=== PATIENT | male | born 1965 | race Caucasian/White ===

== ENCOUNTER → 2016-10-28 | Outpatient (CLI) | payer BC ==
--- NOTE | 2016-10-28 18:31 | US ---
EXAMINATION TYPE: US extremity nonvasc mass LT DATE OF EXAM: 10/28/2016 6:09 PM COMPARISON: NONE CLINICAL HISTORY: L Bicep Nodule R22.32. patient has lump posterior left upper arm, states it has vinnie e down in size since originally identified.Patient has a history of repair of tricep and bicep becaus e of a cutting injury. 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 There is an oval soft tissue density that has the appearance of a lymph node measuring 2.1 x 0 .5 x 2.1 cm with some internal flow. This sits anterior to muscle, just under skin surface. IMPRESSION: There is an oval shaped subcutaneous solid mass in the area of concern. The sonographic features are benign in this could be lipoma or unusual location of a lymph node.
== END | disposition home or self-care (01) ==
LOC: RADUSMAIN 17:46
PROVIDERS: ATTEND Family Medicine
DX: R22.32 Localized swelling, mass and lump, left upper limb (principal)

== ENCOUNTER 2018-01-17 17:59 | Inpatient (IN) | payer BC ==
[2018-01-17] MEDS ORDERED: ROCURONIUM BROMIDE 10 MG/ML 10 ML VIAL IV ONE (18:08)
[2018-01-17] MEDS ORDERED: MIDAZOLAM 2 MG/2 ML VIAL ONE ×2 (18:10→19:31)
[2018-01-17] MEDS ORDERED: MIDAZOLAM 2 MG/2 ML VIAL IV ONE ×2 (18:10→19:41)
[2018-01-17] MEDS ORDERED: fentaNYL (PF) 50 MCG/ML 2 ML AMP ONE (18:10)
[2018-01-17] MEDS ORDERED: fentaNYL (PF) 50 MCG/ML 2 ML AMP IV ONE (18:12)
[2018-01-17] MEDS ORDERED: LIDOCAINE 2% INJ 20 MG/ML SQ ONE (18:23)
[2018-01-17] MEDS ORDERED: BIVALIRUDIN BOLUS 250 MG/50 ML IV ONE (18:33)
[2018-01-17] MEDS ORDERED: BIVALIRUDIN 250 MG in SODIUM CHLORIDE 0.9% 50 ML IV ONE ×2 (18:34→19:16)
[2018-01-17] MEDS ORDERED: DOPamine DRIP 800 MG in DEXTROSE/WATER 1 500ML.BAG IV ONE (18:36)
[2018-01-17] MEDS: NITROGLYCERIN 1000MCG/10ML SYRINGE INTRACORON ONE ×2 (18:38→19:00)
[2018-01-17] MEDS ORDERED: TICAGRELOR 90 MG TAB ONE (18:45)
[2018-01-17] MEDS ORDERED: IOPAMIDOL-370 125ML BTL INJ ONE (19:01)
[2018-01-17] MEDS ORDERED: NOREPINEPHRIN 4 MG-0.9% NS PMX 4 MG/250 ML ML IV ONE (19:06)
[2018-01-17] MEDS ORDERED: NITROGLYCERIN SL TABS 0.4 MG TAB SUBLINGUAL PRN (19:22)
[2018-01-17] MEDS ORDERED: MAG HYDROX/AL HYDROX/SIMETH 30 ML CUP PO PRN (19:22)
[2018-01-17] MEDS ORDERED: RX INFO: IV CONTRAST WAS GIVEN 1 EACH MISC MISCELLANE PRN (19:22)
[2018-01-17] MEDS ORDERED: ZOLPIDEM 5 MG TAB PO PRN (19:22)
[2018-01-17] MEDS ORDERED: ATROPINE SULFATE 0.1 MG/ML 10ML SYRINGE IV PRN (19:22)
--- NOTE | 2018-01-17 19:24 | ED ---
Chest Pain HPI - History of Present Illness Initial Comments: 52 years old male was faster from [facility] today with a STEMI with a third-degree AV block and hypertension, ER physician and informed me that he had a massive STEMI in the third-degree heart block and same time he had a respiratory failure he was intubated and on a pressor support because he dropped his blood pressure. Because of the STEMI and third-degree block he was being paced subcutaneously [facility] ER doc was trying to get hold of cardiology. I did speak with the Dr. Manny Bryant agreed that the once Travel [facility] extremity he could patient couldn't come to the Travel Writer without stopping in the ER. On arrival to the ER patient's blood pressure was stable he was intubated him and he went straight to the Travel Writer. Prior to his arrival I was notified by Travel Writer the Travel Writer extremity for him - Related Data Allergies Allergy/AdvReac Type Severity Reaction Status Date / Time No Known Allergies Allergy Verified 01/17/18 18:40 Review of Systems ROS Statement: Those systems with pertinent positive or pertinent negative responses have been documented in the HPI. ROS Other: All systems not noted in ROS Statement are negative. General Exam - General Exam Comments Initial Comments: No exam was done in the ER Disposition Clinical Impression: STEMI (ST elevation myocardial infarction) Disposition: ADMITTED IP TO THIS HOSP Condition: Poor
[2018-01-17] MEDS ORDERED: MORPHINE SULFATE 4 MG/ML SYRINGE IV PRN (19:25)
[2018-01-17] MEDS ORDERED: NALOXONE 0.4 MG/ML 1 ML VIAL IV PRN ×2 (19:25→23:03)
--- NOTE | 2018-01-17 19:32 | P.CRDCN ---
History of Present Illness Consult date: 01/17/18 Chief complaint: chest discomfort History of present illness: this is a 52-year-old gentleman who was transferred from the emergency room at [facility] to the emergency room here at [facility] after he was diagnosed with acute inferior ST patient myocardial infarction complicated by third-degree AV block and cardiogenic shock. The patient currently is intubated and he is on ventilator and the history was taken from the chart associated with the patient. The patient was at work earlier today where he started experiencing chest discomfort so he left work and drove himself to [facility] where he was in the parking lot when he collapsed and it brought to the attention of the security. EMS was called and the patient was hypotensive and he was brought to the emergency room where he was found to be in acute inferior ST elevation myocardial infarction as well as third-degree AV block. Subsequently the patient was transferred and underwent an emergent heart catheterization and was found to have an occluded large and dominant left circumflex where it was opened and stented with a good angiographic results and without any complication. I did perform an aspiration thrombectomy and I was able to extract large thrombus burden from the left circumflex coronary artery. The RCA is a small and nondominant and the LAD has mild disease only in the proximal portion. LV gram was performed and revealed impaired LV function with an ejection fraction of 35-40% with mid inferior and basal inferior hypokinesia. Currently the patient is in normal sinus mechanism and he's out of the third degree AV block after the angioplasty was performed. He is hypotensive and requiring vasopressor with Levophed. He is going to be admitted to the intensive. Heart. An echocardiogram will be performed. I would start the patient on dual antiplatelet and statin and hold on any beta danyell or ANANDA inhibitor in view of the low blood pressure requiring vasopressors. Past Medical History Past Medical History: No Reported History (underwent stenting of the left circumflex), Hypertension (bloc) Medications and Allergies Allergies Allergy/AdvReac Type Severity Reaction Status Date / Time No Known Allergies Allergy Verified 01/17/18 18:40 Physical Exam Vitals: Intake and Output 01/17/18 01/17/18 01/17/18 06:59 14:59 22:59 Intake Total 9.13 Balance 9.13 Intake: IV 9.13 Other: Weight 108 kg - Constitutional General appearance: no acute distress - Respiratory Respiratory: bilateral: CTA - Cardiovascular Rhythm: regular Heart sounds: normal: S1, S2 Results Current Medications Generic Name Dose Route Start Last Admin Trade Name Freq PRN Reason Stop Dose Admin Al Hydroxide/Mg Hydroxide 30 ml 01/17/18 19:22 Maalox PO Q4HR PRN Heartburn Aspirin 81 mg 01/18/18 09:00 Aspirin PO DAILY JACQUI Atorvastatin Calcium 80 mg 01/17/18 21:00 Lipitor PO HS [facility] Atropine Sulfate 0.5 mg 01/17/18 19:22 Atropine IV ONCE PRN Symptomatic Bradycardia Sodium Chloride 1,000 mls @ 100 mls/hr 01/17/18 19:30 Saline 0.9% IV 01/18/18 03:31 .Q10H [facility] Miscellaneous Information 1 each 01/17/18 19:22 Rx Info: Iv Contrast Was Given MISCELLANE 01/19/18 19:22 DAILY PRN Per Protocol Nitroglycerin 0.4 mg 01/17/18 19:22 Nitrostat SUBLINGUAL Q5M PRN Chest Pain Ticagrelor 90 mg 01/17/18 21:00 Brilinta PO BID [facility] Zolpidem Tartrate 5 mg 01/17/18 19:22 Ambien PO HS PRN Insomnia Intake and Output 01/17/18 01/17/18 01/17/18 06:59 14:59 22:59 Intake Total 9.13 Balance 9.13 Intake: IV 9.13 Other: Weight 108 kg Patient Weight 01/18/18 06:59 Weight 108 kg Assessment and Plan Assessment: assessment #[address] elevation myocardial infarction. #2 cardiogenic shock #3 advanced AV block Plan #1 dual antiplatelet therapy along with a statin #2 hold on any beta danyell or ANANDA inhibitor in view of the low blood pressure #3 continue vasopressor support #4 an echocardiogram was Doppler #5 follow-up with the patient. Thank you for allowing us but spitting his care and we'll continue following up with him
[2018-01-17] MEDS ORDERED: IOPAMIDOL-370 100ML BTL INJ ONE (19:45)
[2018-01-17] MEDS ORDERED: TICAGRELOR 90 MG TAB OG-TUBE ONE (19:45)
[2018-01-17] MEDS ORDERED: PROPOFOL 100 ML IV ONE (20:23)
[2018-01-17] MEDS: SODIUM CHLORIDE 0.9% 1,000 ML IV SCH (20:41)
[2018-01-17 20:58] LABS: ABG Base Excess -7.9 mmol/L; ABG HCO3 18 mmol/L (21-25); ABG Oxygen Saturation 99.7 % (94-97); ABG PCO2 33 mmHg (35-45); ABG PH 7.34 (7.35-7.45); ABG PO2 329 mmHg (83-108); ABG TCO2 19 mmol/L (19-24)
--- NOTE | 2018-01-17 21:47 | CC ---
CARDIAC CATHETERIZATION REPORT DATE OF SERVICE: January 17, 2018 PERFORMING PHYSICIAN: Devin Bryant MD, escrow clerk. PROCEDURE PERFORMED: 1. Selective right and left coronary angiogram. 2. Left heart catheterization. 3. Left ventriculography. 4. Successful stenting of the mid left circumflex using 3.5 x 18 mm Xience MORIAH with good angiographic results with adjunctive use of the Godzilla device. 5. An aspiration thrombectomy from the left circumflex. INDICATION: This is a pleasant 52-year-old gentleman who presented had collapsed at the parking lot at [facility] and he was brought to the emergency room and was found to be in acute inferior ST-elevation myocardial infarction complicated by cardiogenic shock. He was also found to be in third-degree AV block. He was brought to the emergency room at [facility] for an emergent heart catheterization. APPROACH: Right common femoral artery. COMPLICATION: None. LEVEL OF SEDATION: Moderate with sedation length of 50 minutes. PROCEDURE DESCRIPTION: After obtaining an informed consent, the patient was brought to the cardiac laborer car barn. The right common femoral artery was cannulated using micropuncture technique and a micropuncture wire passed easily, then I placed a 6-Hong Konger sheath in the right common femoral artery. Subsequently I did selective right and left coronary angiogram using Pratik Looney 5-Hong Konger for the right coronary artery and JL4 for the left coronary system. After that I did angioplasty on the left circumflex please see a separate paragraph for that. After that I did left heart catheterization and LV gram using 6- Hong Konger pigtail catheter. The procedure was completed without any complication. SELECTIVE CORONARY ANGIOGRAM: 1. The left main is a large caliber vessel and it is angiographically normal. It bifurcates into left circumflex and left anterior descending artery. 2. The left circumflex is a large caliber vessel and it is a dominant vessel. The left circumflex is acutely occluded in the midportion. It is calcified at that segment as well. 3. The LAD: The proximal LAD has mild disease only in the range of 30% to 40%. The mid LAD appeared to be angiographically normal and gives rise into 2 diagonal branches both are angiographically normal. The LAD distally appeared to be angiographically normal. HEMODYNAMICS: The left ventricular end-diastolic pressure was 15 mmHg and no gradient was identified across the aortic valve. Left ventriculography was performed in the CERON projection and using a power injection. The left ventricular systolic function is impaired with EF about 40% with mid inferior and basal inferior hypokinesia. PCI OF THE LEFT CIRCUMFLEX: Anticoagulation was initiated using Angiomax. Subsequently I took JL4 guide and the left main was engaged. A Whisper wire was used to wire the the left circumflex coronary artery and cross the acute total occlusion in the midportion. Subsequently I did aspiration thrombectomy using an export catheter and I was able to extract significant amount of plaque from the left circumflex. After that I did balloon angioplasty using 3.5 mm balloon which was inflated under 14 atmospheres for 20 seconds. I tried to advance 3.5 x 18 mm stent over the wire but the stent will not cross. In spite of using double wire with a pablo wire which was a run-through wire in addition to the whisper wire. After that I was able to advance the stent. After that I pulled run-through wire out and I was able to use the Godzilla and I was able to position the stent in the mid left circumflex where the stent was positioned under fluoroscopy guidance and deployed under its nominal pressure. The following angiogram showed good angiographic results. There was a lesion in the proximal left circumflex appeared to be intermediate and in the range of 50%. The procedure was completed without any complication. CONCLUSION: 1. Acute inferior ST-elevation myocardial infarction complicated by cardiogenic shock and third-degree AV block. 2. Acute total occlusion of the mid left circumflex, which was stented. The proximal left circumflex has intermediate lesion, appeared to be in the range of 50%, was left alone. 3. Small to medium nondominant right coronary artery. 4. Mild disease involving the proximal LAD. 5. Impaired LV function with an ejection fraction of 35-40% with mid inferior and basal inferior hypokinesia. POSTPROCEDURE MANAGEMENT: 1. Dual anti-platelet therapy. 2. Risk factors modifications. 3. Follow up with the patient. MMODL / IJN: [id number] /
[2018-01-17] MEDS: ATORVASTATIN 80 MG TAB PO SCH (21:57)
[2018-01-17] MEDS: TICAGRELOR 90 MG TAB PO SCH (21:57)
--- NOTE | 2018-01-17 23:03 | P.HPIM ---
History of Present Illness H&P Date: 01/17/18 [id number] male with no significant past medical history admitted to the hospital for cardiogenic shock the patient denied to give any history at this time patient is intubated and on pressors underwent cardiac cath and stent History has been taking from the family the patient accordingly most did have some chest discomfort and drove himself to the hospital the patient did have a syncopal episode patient was hypertensive and was found to have a STEMI and underwent stenting Currently patient is in the intensive care unit intubated review of systems unable to get to the current condition of the patient Past medical history none as per family Social history smoker Surgical history none known at this time Family history also unable to get Constitutional: No acute distress, conversant, pleasant Eyes: Anicteric sclerae, moist conjunctiva, no lid-lag PERRLA ENMT: NC/AT Oropharynx clear, no erythema, exudates Neck: Supple, FROM, no masses, or JVD No carotid bruits No thyromegaly Lungs: Clear to auscultation Clear to percussion Normal respiratory effort, no accessory muscle use Cardiovascular: Heart regular in rate and rhythm, No murmurs, gallops, or rubs No peripheral edema Abdominal: Soft Nontender, no guarding, rebound or rigidity Abdomen moving with respiration Skin: Normal temperature, tone, texture, turgor No induration No subcutaneous nodules No rash, lesions No ulcers Extremities: No digital cyanosis No clubbing Pedal pulses intact and symmetrical Radial pulses intact and symmetrical Normal gait and station No calf tenderness Psychiatric: Sedated Neuro: Rolanda is intubated and sedated Vital Signs Pulse Resp BP Pulse Ox 104 H 28 H 157/96 97 01/17/18 20:15 01/17/18 20:15 01/17/18 20:15 01/17/18 20:15 Laboratory Results - last 24 hr 01/17/18 20:53 Sample Site A line ABG pH 7.34 L ABG pCO2 33 L ABG pO2 329 H ABG HCO3 18 L ABG Total CO2 19 ABG O2 Saturation 99.7 H ABG Base Excess -7.9 Fazal Test No FiO2 100 Laboratory Results - last 24 hr 01/17/18 20:53 Sample Site A line ABG pH 7.34 L ABG pCO2 33 L ABG pO2 329 H ABG HCO3 18 L ABG Total CO2 19 ABG O2 Saturation 99.7 H ABG Base Excess -7.9 Fazal Test No FiO2 100 Assessment and plan cardiogenic shock and STEMI status post cardiac cath and stenting continue to monitor the patient in the intensive care unit currently patient is intubated and on vent AV block due to current cardiogenic shock and STEMI Continue management as better ICU team and cardiology Will repeat labs in a.m. Family at bedside Past Medical History Past Medical History: No Reported History (underwent stenting of the left circumflex), Hypertension (bloc) Additional Past Medical History / Comment(s): Ablation History of Any Multi-Drug Resistant Organisms: None Reported Past Surgical History: Ablation, Back Surgery Past Anesthesia/Blood Transfusion Reactions: No Reported Reaction Past Psychological History: No Psychological Hx Reported Smoking Status: Current every day smoker Past Alcohol Use History: Daily Additional Past Alcohol Use History / Comment(s): 4 beers daily Past Drug Use History: None Reported - Past Family History Brother(s) Family Medical History: Myocardial Infarction ([place]) Additional Family Medical History / Comment(s): in his 40s Mother Family Medical History: Coronary Artery Disease (CAD) Medications and Allergies Home Medications Medication Instructions Recorded Confirmed Type No Known Home Medications [No 01/17/18 01/17/18 History Known Home Medications] Allergies Allergy/AdvReac Type Severity Reaction Status Date / Time No Known Allergies Allergy Verified 01/17/18 18:40 Physical Exam Vitals: Vital Signs Temp Pulse Resp BP Pulse Ox 01/17/18 22:00 81 24 99 01/17/18 21:45 83 24 96 01/17/18 21:30 80 24 100 01/17/18 21:15 81 24 100 01/17/18 21:00 85 24 100 01/17/18 20:45 90 24 100 01/17/18 20:30 96.8 F L 95 24 100 01/17/18 20:15 104 H 28 H 157/96 97 Intake and Output 01/17/18 01/17/18 01/17/18 06:59 14:59 22:59 Intake Total 415.13 Output Total 1000 Balance -584.87 Intake: IV 385.13 Sodium Chloride 0.9% 1, 300 000 ml @ 100 mls/hr IV . Q10H JACQUI Rx#:[id number] Other 30 Output: Urine 1000 Other: Weight 106.9 kg ABP, PAP, CO, CI - Last 8 Hours Arterial Blood Pressure 96/57 Arterial Blood Pressure 96/57 Arterial Blood Pressure 102/61 Arterial Blood Pressure 99/61 Arterial Blood Pressure 96/63 Arterial Blood Pressure 87/56 Arterial Blood Pressure 95/63 Results Labs: Abnormal Lab Results - Last 24 Hours (Table) 01/17/18 Range/Units 20:53 ABG pH 7.34 L (7.35-7.45) ABG pCO2 33 L (35-45) mmHg ABG pO2 329 H (83-108) mmHg ABG HCO3 18 L (21-25) mmol/L ABG O2 Saturation 99.7 H (94-97) % Thrombosis Risk Factor Assmnt - Choose All That Apply Any of the Below Risk Factors Present?: Yes Each Factor Represents 1 point: Acute [place], Age 41-60 years, Obesity (BMI >25) Other congenital or acquired thrombophilia - If yes, enter type in comment: No Thrombosis Risk Factor Assessment Total Risk Factor Score: 3 Thrombosis Risk Factor Assessment Level: Moderate Risk
[2018-01-17] MEDS: NICOTINE 21MG/24HR PATCH TRANSDERM SCH (23:38)
[2018-01-18 00:17] LABS: Appearance,Urine Clear (Clear); Bacteria,Urine Rare /hpf; Bilirubin,Urine Negative (Negative); Blood,Urine Large (Negative); Color,Urine Yellow; Glucose,Urine (UA) Negative (Negative); Ketones,Urine Negative (Negative); Leukocyte Esterase,Urine Trace (Negative); Mucus,Urine Rare /hpf; Nitrite,Urine Negative (Negative); Protein,Urine 1+ (Negative); RBC,Urine >182 /hpf (0-5); Squamous Epithelial Cell,Urine <1 /hpf (0-4); Urobilinogen,Urine <2.0 mg/dL (<2.0); WBC,Urine 30 /hpf (0-5)
[2018-01-18 00:24] LABS: Specific Gravity,Urine >1.050 (1.001-1.035)
[2018-01-18] MEDS: SODIUM CHLORIDE 0.9% 1,000 ML IV SCH (00:25)
[2018-01-18] MEDS ORDERED: NOREPINEPHRIN 4 MG-0.9% NS PMX 4 MG/250 ML ML IV SCH (00:30)
[2018-01-18] MEDS ORDERED: PROPOFOL 1,000 MG in EMPTY BAG 1 BAG IV SCH (00:30)
[2018-01-18 01:24] LABS: ABG Base Excess -6.7 mmol/L; ABG HCO3 18 mmol/L (21-25); ABG Oxygen Saturation 95.5 % (94-97); ABG PCO2 30 mmHg (35-45); ABG PO2 76 mmHg (83-108); ABG TCO2 19 mmol/L (19-24)
[2018-01-18 05:26] LABS: Basophils % (A) 0 %; Eosinophils # (A) 0.1 k/uL (0-0.7); Eosinophils % (A) 1 %; HCT 44.3 % (39.0-53.0); HGB 14.3 gm/dL (13.0-17.5); Lymphocytes # (A) 1.5 k/uL (1.0-4.8); Lymphocytes % (A) 9 %; MCH 31.3 pg (25.0-35.0); MCHC 32.3 g/dL (31.0-37.0); MCV 96.7 fL (80.0-100.0); Mean Platelet Volume 7.6; Monocytes # (A) 0.6 k/uL (0-1.0); Monocytes % (A) 3 %; Neutrophils % (A) 86 %; Platelet Count 243 k/uL (150-450); RBC 4.58 m/uL (4.30-5.90); RDW 13.5 % (11.5-15.5); WBC 16.2 k/uL (3.8-10.6)
[2018-01-18 05:49] LABS: Anion Gap 10 mmol/L; Blood Urea Nitrogen 20 mg/dL (9-20); Calcium 8.6 mg/dL (8.4-10.2); Carbon Dioxide 18 mmol/L (22-30); Chloride 111 mmol/L (98-107); Glucose 116 mg/dL (74-99); Magnesium 1.9 mg/dL (1.6-2.3); Phosphorus 3.1 mg/dL (2.5-4.5); Potassium 4.3 mmol/L (3.5-5.1); Sodium 139 mmol/L (137-145)
[2018-01-18] MEDS: NICOTINE 21MG/24HR PATCH TRANSDERM SCH (07:12)
[2018-01-18] MEDS: MAGNESIUM SULFATE-D5W PMX 1 GM in DEXTROSE/WATER 1 100ML.BAG IVPB SCH ×2 (08:10→09:33)
--- NOTE | 2018-01-18 08:35 | XR ---
EXAMINATION TYPE: XR chest 1V DATE OF EXAM: 01/18/2018 COMPARISON: NONE HISTORY: Post extubation TECHNIQUE: Single frontal view of the chest is obtained. FINDINGS: Bilateral patchy perihilar infiltrates with interstitial pattern. Biapical pleural thicken ing. Arthropathy shoulders. No sizable pleural effusion or pneumothorax. IMPRESSION: Patchy perihilar infiltrate with interstitial pattern which could been the basis of chronometer assembler and adjuster evelin interstitial lung disease or acute pneumonitis. Mild venous congestion not excluded.
[2018-01-18] MEDS: PANTOPRAZOLE 40 MG/10 ML VIAL IV SCH (09:33)
[2018-01-18] MEDS: TICAGRELOR 90 MG TAB PO SCH ×2 (09:33→22:36)
[2018-01-18] MEDS: ASPIRIN 81 MG PO SCH (09:34)
--- NOTE | 2018-01-18 10:23 | ECHOF ---
Referral Reason:stemi MEASUREMENTS -------- HEIGHT: 172.7 cm WEIGHT: 107.5 kg BP: 114/70 RVIDd: 2.7 cm (< 3.3) IVSd: 1.2 cm (0.6 - 1.1) LVIDd: 4.5 cm (3.9 - 5.3) LVPWd: 1.3 cm (0.6 - 1.1) IVSs: 1.6 cm LVIDs: 3.6 cm LVPWs: 1.5 cm LA Diam: 4.5 cm (2.7 - 3.8) LAESV Index (A-L): 28.38 ml/m Ao Diam: 3.1 cm (2.0 - 3.7) AV Cusp: 2.2 cm (1.5 - 2.6) LA Diam: 3.8 cm (2.7 - 3.8) MV EXCURSION: 24.642 mm (> 18.000) MV EF SLOPE: 153 mm/s (70 - 150) EPSS: 0.5 cm MV E Jaime: 0.84 m/s MV DecT: 102 ms MV A Jaime: 0.58 m/s MV E/A Ratio: 1.45 RAP: 5.00 mmHg RVSP: 13.79 mmHg FINDINGS -------- Sinus rhythm. This was a technically adequate study. The left ventricular size is normal. There is mild concentric left ventricular hypertrophy. Overa ll left ventricular systolic function is mildly impaired with, an EF between 45 - 50 %. Inferior Hy pokinesis The right ventricle is normal in size. The left atrium is mildly dilated. Normal LA size by volume 22+/-6 ml/m2. The right atrial size is normal. The aortic valve is trileaflet, and appears structurally normal. No aortic stenosis or regurgitation. Mild mitral annular calcification present. Mild mitral regurgitation is present. Mild tricuspid regurgitation present. There is no evidence of pulmonary hypertension. The right v entricular systolic pressure, as measured by Doppler, is 13.79mmHg. There is no pulmonic regurgitation present. The aortic root size is normal. There is no pericardial effusion. CONCLUSIONS -------- 1. The left ventricular size is normal. 2. There is mild concentric left ventricular hypertrophy. 3. Overall left ventricular systolic function is mildly impaired with, an EF between 45 - 50 %. 4. Inferior Hypokinesis 5. The left atrium is mildly dilated. 6. Normal LA size by volume 22+/-6 ml/m2. 7. The aortic valve is trileaflet, and appears structurally normal. No aortic stenosis or regurgitati on. 8. Mild mitral annular calcification present. 9. Mild mitral regurgitation is present. 10. Mild tricuspid regurgitation present. 11. There is no evidence of pulmonary hypertension. 12. The right ventricular systolic pressure, as measured by Doppler, is 13.79mmHg. 13. There is no pulmonic regurgitation present. 14. The aortic root size is normal. 15. There is no pericardial effusion. BURGLARY INVESTIGATOR: Anabella Mills RDCS
--- NOTE | 2018-01-18 11:37 | P.PN ---
Subjective Progress Note Date: 01/18/18 Principal diagnosis: Patient seen for cardiogenic shock, and STEMI Patient seen and examined today, patient laying in bed comfortable, he was extubated this morning doing well, currently on high flow nasal cannula. He still nothing by mouth, but denies any further chest pain or trouble breathing, he has question about his disease process, and future expectations. Objective - Vital Signs Vital signs: Vital Signs Temp 98.4 F 01/18/18 08:00 Pulse 79 01/18/18 11:00 Resp 21 01/18/18 11:00 BP 102/66 01/18/18 11:00 Pulse Ox 90 L 01/18/18 11:00 Intake & Output 01/17/18 01/18/18 01/18/18 18:59 06:59 18:59 Intake Total 54.13 8489.334 8635.813 Output Total 1475 1120 Balance 54.13 -110.891 55.813 Weight 108 kg 107.7 kg Intake: IV 54.13 1131 440 Magnesium Sulfate-D5w Pmx 200 1 gm In Dextrose/Water 1 100ml.bag @ 100 mls/hr IVPB Q1H JACQUI Rx#: [id number] Sodium Chloride 0.9% 1, 1100 240 000 ml @ 100 mls/hr IV . Q10H JACQUI Rx#:[id number] Intake, IV Titration 83.109 15.813 Amount Norepinephrin 4 mg-0.9% 71.625 15.813 Ns Pmx 4 mg In 250 ml @ Titrate IV .Q0M JACQUI Rx#: [id number] Propofol 1,000 mg In 11.484 Empty Bag 1 bag @ Titrate IV .Q0M JACQUI Rx#: [id number] Oral 120 720 Other 30 Output: Urine 1475 1120 Other: Voiding Method Indwelling Catheter Indwelling Catheter ABP, PAP, CO, CI - Last Documented Arterial Blood Pressure 94/56 - Exam Constitutional: vital signs stable, Not in acute distress, pleasant, conversant Lungs: Clear to auscultation bilaterally, clear to percussion, normal respiratory effort no use of accessory muscles Cardiovascular: Regular rate and rhythm, no murmurs, no gallops, no rubs, no peripheral edema Gastrointestinal: Soft, no tenderness to palpation, no palpable hepatosplenomegally, bowel sounds positive Skin: Heart cath Access site in the in the right groin was examined, some ecchymosis but no active bleeding, no swelling, there are mild tenderness to palpation, access site soft to palpation. Extremities: No digital cyanosis or clubbing, peripheral pulses palpable and equal over bilateral radial arteries and dorsalis pedis artery, no calf muscle tenderness Psych: Alert, oriented to place, person and time, appropriate affect, intact judgment - Labs CBC & Chem 7: 01/18/18 03:45 01/18/18 03:45 Labs: Abnormal Lab Results - Last 24 Hours (Table) 01/17/18 01/17/18 01/18/18 Range/Units 00:01 20:53 01:19 WBC (3.8-10.6) k/uL Neutrophils # (1.3-7.7) k/uL ABG pH 7.34 L (7.35-7.45) ABG pCO2 33 L 30 L (35-45) mmHg ABG pO2 329 H 76 L (83-108) mmHg ABG HCO3 18 L 18 L (21-25) mmol/L ABG O2 Saturation 99.7 H (94-97) % Chloride (98-107) mmol/L Carbon Dioxide (22-30) mmol/L Glucose (74-99) mg/dL Ur Specific [place] >1.050 H (1.001-1.035) Urine Protein 1+ H (Negative) Urine Blood Large H (Negative) Ur Leukocyte Esterase Trace H (Negative) Urine RBC >182 H (0-5) /hpf Urine WBC 30 H (0-5) /hpf Urine Bacteria Rare H (None) /hpf Urine Mucus Rare H (None) /hpf 01/18/18 01/18/18 Range/Units 03:45 03:45 WBC 16.2 H (3.8-10.6) k/uL Neutrophils # 14.0 H (1.3-7.7) k/uL ABG pH (7.35-7.45) ABG pCO2 (35-45) mmHg ABG pO2 (83-108) mmHg ABG HCO3 (21-25) mmol/L ABG O2 Saturation (94-97) % Chloride 111 H (98-107) mmol/L Carbon Dioxide 18 L (22-30) mmol/L Glucose 116 H (74-99) mg/dL Ur Specific [place] (1.001-1.035) Urine Protein (Negative) Urine Blood (Negative) Ur Leukocyte Esterase (Negative) Urine RBC (0-5) /hpf Urine WBC (0-5) /hpf Urine Bacteria (None) /hpf Urine Mucus (None) /hpf Microbiology - Last 24 Hours (Table) 01/17/18 00:01 Urine Culture - Preliminary Urine,Catheterized Assessment and Plan Assessment: 52-year-old male with no significant past medical history. Presents to the hospital due to cardiogenic shock, advanced AV block, and inferior STEMI. He was transferred from [facility] to our hospital for further care. Plan: #Inferior STEMI status post left heart cath status post stent #Cardiogenic shock with acute left ventricular systolic heart failure with left ventricular ejection fraction of 35-40% #Advanced AV block, currently resolved post coronary reperfusion post stents Continue with antiplatelets and statin Beta blockers and ANANDA inhibitor is on hold due to cardiogenic shock Currently patient continues on levo fed with weaning trials to maintain maps above 65 Patient making good urine output Follow-up labs, A1c, lipid profile, TSH Patient counseled regarding lifestyle modification Patient counseled to quit smoking Patient was successfully extubated this morning currently on high flow nasal cannula Follow-up with cardiology Continue with ICU management DVT prophylaxis on heparin subcu 3 times a day Start by mouth intake cardiac diet Leukocytosis most likely reactive secondary to STEMI
[2018-01-18] MEDS: HYDROcodone/APAP 5-325MG 1 EACH TAB PO PRN ×2 (12:50→17:52)
--- NOTE | 2018-01-18 12:55 | P.CNPUL ---
History of Present Illness Consult date: 01/18/18 Reason for consult: dyspnea, chest pain History of present illness: A pleasant 52-year-old male patient, a chronic smoker also with known history of obstructive sleep apnea, the chance for from [facility] emergency department where the patient presented yesterday because of increased shortness of breath and chest pain. The patient was found to have an acute inferior wall ST segment elevation myocardial infarction Combigan by third -degree AV block and cardiogenic shock. The patient was intubated in the emergency department and the patient was placed on a mechanical ventilator. Subsequently the patient got transferred to [facility] for further evaluation. Immediately the patient was taken to the [facility]. The patient underwent a emergent cardiac catheterization and was found to have occluded large and dominant left circumflex artery that was angioplastied was stented with good angiographic results and without any complications. Aspiration thrombectomy was done and the large thrombus burden was extracted from the left circumflex artery. The RCA was small and nondominant and the LAD had only mild disease. LV angiogram at that time showed an ejection fraction of 35-40% with evidence of inferior wall hypokinesis. The patient was brought into the intensive care unit following the procedure. Overnight patient required pressors and the patient was as high as 10 mics of norepinephrine infusion for blood pressure control. The initial blood gases showed a pH of 7.34 with a pCO2 of 33 and pO2 of 329. The patient was checked on FiO2 of 100% with a PEEP of 5 and total volume of 500. Subsequently the patient had the FiO2 weaned down to 40% and he was taken off sedation this point is breathing trial was done and blood gas in 30 minutes showed a pH of 7.4 with a pCO2 of 30 and pO2 of 76 and he was extubated. This morning, his chest x-ray shows a perihilar pulmonary infiltrates and consistent with CHF. He is on 2 mics of norepinephrine infusion and the presence of been weaned off. His diffusing around 70-80 mL an hour of urine output. No chest pain. He has converted to normal sinus rhythm. Echocardiogram was done and it showed a mild LV function with ejection fraction 45-50%. There was evidence of inferior wall hypokinesis. No other significant valvular abnormalities in the left ventricular size was within normal limits. Right ventricular systolic pressure was 13.7 mmHg. The patient is awake. His communicating. He has no specific complaints otherwise for now. No swelling in lower extremities. No nausea or vomiting. No altered mentation. No syncope. Review of Systems Constitutional: Denies chills, Denies fever Eyes: denies blurred vision, denies bulging eye, denies decreased vision Ears: deny: decreased hearing, ear discharge, earache Ears, nose, mouth and throat: Denies headache, Denies sore throat Cardiovascular: Reports chest pain, Reports dyspnea on exertion, Reports edema Respiratory: Reports dyspnea, Reports sleep apnea, Reports snoring Gastrointestinal: Denies abdominal pain, Denies diarrhea, Denies nausea, Denies vomiting Genitourinary: Reports as per HPI Musculoskeletal: Denies myalgias Musculoskeletal: absent: ankle pain, ankle stiffness, ankle swelling Integumentary: Denies pruritus, Denies rash Neurological: Denies numbness, Denies weakness Psychiatric: Denies anxiety, Denies depression Endocrine: Denies fatigue, Denies weight change Hematologic/Lymphatic: Reports as per HPI Allergic/Immunologic: Reports as per HPI Past Medical History Past Medical History: No Reported History (underwent stenting of the left circumflex), Hypertension (bloc) Additional Past Medical History / Comment(s): Coronary artery disease with an inferior wall myocardial infarction, obesity, obstructive sleep apnea, smoker , hypertension History of Any Multi-Drug Resistant Organisms: None Reported Past Surgical History: Back Surgery, Heart Catheterization With Stent Past Anesthesia/Blood Transfusion Reactions: No Reported Reaction Past Psychological History: No Psychological Hx Reported Smoking Status: Current every day smoker Past Alcohol Use History: Daily Additional Past Alcohol Use History / Comment(s): 4 beers daily Past Drug Use History: None Reported - Past Family History Brother(s) Family Medical History: Myocardial Infarction (MD) Additional Family Medical History / Comment(s): in his 40s Mother Family Medical History: Coronary Artery Disease (CAD) Medications and Allergies Home Medications Medication Instructions Recorded Confirmed Type No Known Home Medications [No 01/17/18 01/17/18 History Known Home Medications] Allergies Allergy/AdvReac Type Severity Reaction Status Date / Time No Known Allergies Allergy Verified 01/17/18 18:40 Physical Exam Vitals: Vital Signs Temp Pulse Resp BP Pulse Ox 01/18/18 11:00 79 21 102/66 90 L 01/18/18 10:30 91 29 H 106/68 95 01/18/18 10:00 82 24 80/50 92 L 01/18/18 09:30 86 24 94/56 93 L 01/18/18 09:00 82 18 83/54 92 L 01/18/18 08:00 98.4 F 85 24 114/68 92 L 01/18/18 07:30 118/77 93 L 01/18/18 07:00 86 22 90/75 97 01/18/18 06:30 88 25 H 105/72 92 L 01/18/18 06:00 84 20 84/52 91 L 01/18/18 05:00 81 20 100/64 93 L 01/18/18 04:30 83 21 98/62 90 L 01/18/18 04:00 98.5 F 88 20 110/67 91 L 01/18/18 03:30 86 18 104/66 91 L 01/18/18 03:00 86 19 101/69 91 L 01/18/18 02:30 88 18 119/68 90 L 01/18/18 02:00 92 23 105/77 84 L 01/18/18 01:53 95 01/18/18 01:30 106 H 39 H 96/64 98 01/18/18 01:00 88 24 91/65 94 L 01/18/18 00:30 77 33 H 99/66 96 01/18/18 00:00 97.1 F L 80 24 92/64 96 01/17/18 23:30 76 24 87/62 96 01/17/18 23:00 78 24 94 L 01/17/18 22:30 73 24 98 01/17/18 22:00 81 24 99 01/17/18 21:45 83 24 96 01/17/18 21:30 80 24 100 01/17/18 21:15 81 24 100 01/17/18 21:00 85 24 100 01/17/18 20:45 90 24 100 01/17/18 20:30 96.8 F L 95 24 100 01/17/18 20:15 104 H 24 157/96 97 Intake and Output 01/17/18 01/18/18 01/18/18 22:59 06:59 14:59 Intake Total 415.13 1953.907 7197.813 Output Total 8582 510 8737 Balance -584.87 528.109 -274.187 Intake: IV 385.13 800 460 Magnesium Sulfate-D5w Pmx 200 1 gm In Dextrose/Water 1 100ml.bag @ 100 mls/hr IVPB Q1H JACQUI Rx#: [id number] Sodium Chloride 0.9% 1, 300 800 260 000 ml @ 100 mls/hr IV . Q10H JACQUI Rx#:[id number] Intake, IV Titration 83.109 15.813 Amount Norepinephrin 4 mg-0.9% 71.625 15.813 Ns Pmx 4 mg In 250 ml @ Titrate IV .Q0M JACQUI Rx#: [id number] Propofol 1,000 mg In 11.484 Empty Bag 1 bag @ Titrate IV .Q0M JACQUI Rx#: [id number] Oral 120 720 Other 30 Output: Urine 0324 125 8851 Other: Voiding Method Indwelling Catheter Indwelling Catheter Indwelling Catheter Weight 106.9 kg 107.7 kg Gen. appearance the patient is calm, likely distress Head exam was generally normal. There was no scleral icterus or corneal arcus. Mucous membranes were moist. Neck was supple and without jugular venous distension, thyromegaly, or carotid bruits. Carotids were easily palpable bilaterally. There was no adenopathy. Patient has significant crowding of the posterior oropharynx and Mallampati class IV Lungs sounds are diminished and there is some limited bibasilar crackles otherwise clear. Cardiac exam revealed the PMI to be normally situated and sized. The rhythm was regular and no extrasystoles were noted during several minutes of auscultation. The first and second heart sounds were normal and physiologic splitting of the second heart sound was noted. There were no murmurs, rubs, clicks, or gallops. Abdominal exam revealed normal bowel sounds. The abdomen was soft, non-tender, and without masses, organomegaly, or appreciable enlargement of the abdominal aorta. Examination of the extremities revealed easily palpable radial, femoral and pedal pulses. There was no cyanosis, clubbing or edema. Examination of the skin revealed no evidence of significant rashes, suspicious appearing nevi or other concerning lesions. Neurologically patient is awake and alert and is no focal neurological deficit Results - Laboratory Findings CBC and BMP: 01/18/18 03:45 01/18/18 03:45 ABG ABG pH 7.40 (7.35-7.45) 01/18/18 01:19 ABG pCO2 30 mmHg (35-45) L 01/18/18 01:19 ABG pO2 76 mmHg (83-108) L 01/18/18 01:19 ABG O2 Saturation 95.5 % (94-97) 01/18/18 01:19 Abnormal lab findings: Abnormal Labs 01/17/18 01/17/18 01/18/18 00:01 20:53 01:19 WBC Neutrophils # ABG pH 7.34 L ABG pCO2 33 L 30 L ABG pO2 329 H 76 L ABG HCO3 18 L 18 L ABG O2 Saturation 99.7 H Chloride Carbon Dioxide Glucose HDL Cholesterol Ur Specific Dorsey >1.050 H Urine Protein 1+ H Urine Blood Large H Ur Leukocyte Esterase Trace H Urine RBC >182 H Urine WBC 30 H Urine Bacteria Rare H Urine Mucus Rare H 01/18/18 01/18/18 01/18/18 03:45 03:45 03:45 WBC 16.2 H Neutrophils # 14.0 H ABG pH ABG pCO2 ABG pO2 ABG HCO3 ABG O2 Saturation Chloride 111 H Carbon Dioxide 18 L Glucose 116 H HDL Cholesterol 39 L Ur Specific Dorsey Urine Protein Urine Blood Ur Leukocyte Esterase Urine RBC Urine WBC Urine Bacteria Urine Mucus - Diagnostic Findings Chest x-ray: image reviewed Assessment and Plan Plan: Assessment [address] segment elevation myocardial infarction, status post emergent cardiac catheterization and stenting of circumflex 2 third-degree AV block secondary to above, recovered and the patient rhythm is back to sinus 3 cardiogenic shock secondary to above, improving and echo showing improvement in LV function with ejection fraction of 40-45% 4 acute hypoxic respiratory failure, improving. The patient is post vent dependent respiratory failure from which he recovered and the patient was extubated without any major difficulties. 5 hypotension secondary to above, improving currently on 2 mics of norepinephrine infusion for blood pressure control 6 smoker 7 obesity BMI of 36.1 8 obstructive sleep apnea Plan Suggest covering the IV fluids down to 50 mL an hour. The patient is producing adequate amount of urine output. No need for diuretics. Weaned off the pressors and discontinue. The patient is currently on a combination of aspirin and Brilinta. Beta blockers will be initiated once the patient has a more stable blood pressure. Wean down the FiO2 as the patient is currently on 8 L/m nasal cannula and anticipate improvement as the patient's fluid balance and CHF optimize his over the next few days. Smoking cessation counseling was done. Cardiology is on the case. Echo was noted. We'll continue to follow.
[2018-01-18 14:32] VITALS: BMI 36.1
--- NOTE | 2018-01-18 16:18 | PN ---
PROGRESS NOTE This patient presented with acute inferior wall myocardial infarction and complete heart block. The patient underwent stent to the circumflex coronary artery. The patient is doing well and is comfortable. No janelle arrhythmias are noted. The patient currently is still on Levophed 1 mcg/kg. Blood pressure is 103/68 mmHg. First and second heart sounds are normal. Lungs are clinically clear to auscultation and percussion. The patient's electrolytes were normal. Hemoglobin is 14.3. Echocardiogram reveals inferior wall hypokinesia with ejection fraction of 45-50%. PLAN: We will continue the patient on intravenous fluids at 100 mL/hour and hopefully we will wean him off the Levophed today. MMODL / IJN: [id number] /
[2018-01-18] MEDS: HEPARIN SODIUM,PORCINE 5,000 UNIT/ML 1 ML VIAL SQ SCH (17:53)
[2018-01-18 21:32] LABS: Hemoglobin A1C 6.3 % (4.0-6.0)
[2018-01-18] MEDS: ATORVASTATIN 80 MG TAB PO SCH (22:36)
[2018-01-19] MEDS: HEPARIN SODIUM,PORCINE 5,000 UNIT/ML 1 ML VIAL SQ SCH ×4 (01:13→21:37)
[2018-01-19 01:32] LABS: Creatine Kinase MB 54.6 ng/mL (0.0-2.4)
[2018-01-19 06:37] LABS: Basophils % (A) 0 %; Eosinophils # (A) 0.2 k/uL (0-0.7); Eosinophils % (A) 2 %; HCT 40.1 % (39.0-53.0); HGB 13.2 gm/dL (13.0-17.5); Lymphocytes # (A) 0.9 k/uL (1.0-4.8); Lymphocytes % (A) 7 %; MCH 31.2 pg (25.0-35.0); MCHC 32.8 g/dL (31.0-37.0); MCV 95.2 fL (80.0-100.0); Monocytes # (A) 0.3 k/uL (0-1.0); Monocytes % (A) 2 %; Neutrophils # (A) 12.2 k/uL (1.3-7.7); Neutrophils % (A) 89 %; Platelet Count 198 k/uL (150-450); RBC 4.22 m/uL (4.30-5.90); RDW 13.4 % (11.5-15.5); WBC 13.8 k/uL (3.8-10.6)
[2018-01-19 06:51] LABS: Anion Gap 8 mmol/L; Blood Urea Nitrogen 11 mg/dL (9-20); Calcium 8.3 mg/dL (8.4-10.2); Carbon Dioxide 21 mmol/L (22-30); Chloride 112 mmol/L (98-107); Glucose 110 mg/dL (74-99); Phosphorus 1.9 mg/dL (2.5-4.5); Potassium 3.9 mmol/L (3.5-5.1); Sodium 141 mmol/L (137-145)
[2018-01-19 07:13] LABS: Creatine Kinase MB 29.9 ng/mL (0.0-2.4); Troponin I 62.4 ng/mL (0.000-0.034)
[2018-01-19] MEDS: HYDROcodone/APAP 5-325MG 1 EACH TAB PO PRN ×3 (07:49→23:32)
[2018-01-19] MEDS: PANTOPRAZOLE 40 MG/10 ML VIAL IV SCH (07:50)
[2018-01-19] MEDS: NICOTINE 21MG/24HR PATCH TRANSDERM SCH (07:50)
[2018-01-19] MEDS: TICAGRELOR 90 MG TAB PO SCH ×2 (07:51→21:35)
[2018-01-19] MEDS: ASPIRIN 81 MG PO SCH (07:51)
[2018-01-19] MEDS ORDERED: Phosphorus Replacement Protoco 1 EACH MISC MISCELLANE PRN (08:03)
[2018-01-19] MEDS ORDERED: METOPROLOL TARTRATE 12.5 MG TAB PO SCH (09:00)
[2018-01-19] MEDS: POTASSIUM PHOSPHATE 10 MMOL in SODIUM CHLORIDE 0.9% 250 ML IV SCH ×2 (09:02→11:02)
--- NOTE | 2018-01-19 13:31 | P.PN ---
Subjective Progress Note Date: 01/19/18 A pleasant 52-year-old male patient, a chronic smoker also with known history of obstructive sleep apnea, the chance for from [facility] emergency department where the patient presented yesterday because of increased shortness of breath and chest pain. The patient was found to have an acute inferior wall ST segment elevation myocardial infarction Combigan by third -degree AV block and cardiogenic shock. The patient was intubated in the emergency department and the patient was placed on a mechanical ventilator. Subsequently the patient got transferred to [facility] for further evaluation. Immediately the patient was taken to the [facility]. The patient underwent a emergent cardiac catheterization and was found to have occluded large and dominant left circumflex artery that was angioplastied was stented with good angiographic results and without any complications. Aspiration thrombectomy was done and the large thrombus burden was extracted from the left circumflex artery. The RCA was small and nondominant and the LAD had only mild disease. LV angiogram at that time showed an ejection fraction of 35-40% with evidence of inferior wall hypokinesis. The patient was brought into the intensive care unit following the procedure. Overnight patient required pressors and the patient was as high as 10 mics of norepinephrine infusion for blood pressure control. The initial blood gases showed a pH of 7.34 with a pCO2 of 33 and pO2 of 329. The patient was checked on FiO2 of 100% with a PEEP of 5 and total volume of 500. Subsequently the patient had the FiO2 weaned down to 40% and he was taken off sedation this point is breathing trial was done and blood gas in 30 minutes showed a pH of 7.4 with a pCO2 of 30 and pO2 of 76 and he was extubated. This morning, his chest x-ray shows a perihilar pulmonary infiltrates and consistent with CHF. He is on 2 mics of norepinephrine infusion and the presence of been weaned off. His diffusing around 70-80 mL an hour of urine output. No chest pain. He has converted to normal sinus rhythm. Echocardiogram was done and it showed a mild LV function with ejection fraction 45-50%. There was evidence of inferior wall hypokinesis. No other significant valvular abnormalities in the left ventricular size was within normal limits. Right ventricular systolic pressure was 13.7 mmHg. The patient is awake. His communicating. He has no specific complaints otherwise for now. No swelling in lower extremities. No nausea or vomiting. No altered mentation. No syncope. On 01/19/2018 and seeing this patient for follow-up. The patient is awake and alert and the patient is sitting up on a chair. No major respiratory distress. No cough or sputum production. No chest pain. The patient was weaned off the pressors and the patient has been off pressors for the past 12 hours. His IV fluids are gradually being weaned down to KVO. He is maintaining his own pressure. Slightly in sinus tachycardia. No nausea. No vomiting. No abdominal pain. No chest pain. Altered mentation. No other cardiac arrhythmias noted. The patient is 40 covered from his third-degree AV block. He is having a decline in the troponin and a troponin peaked 117. Echocardiogram showed a preserved or mildly impaired LV function with an ejection fraction 35-40% and the patient is also having some inferior wall hypokinesis. Objective - Vital Signs Vital signs: Vital Signs Temp 98.6 F 01/19/18 12:00 Pulse 86 01/19/18 12:00 Resp 10 L 01/19/18 12:00 BP 102/69 01/19/18 12:00 Pulse Ox 96 01/19/18 12:00 Intake & Output 01/18/18 01/19/18 01/19/18 18:59 06:59 18:59 Intake Total 1969.407 960 520 Output Total 2770 1600 2300 Balance -800.593 -285 -1780 Weight 107.7 kg 107.4 kg Intake: IV 730 600 520 Magnesium Sulfate-D5w Pmx 200 1 gm In Dextrose/Water 1 100ml.bag @ 100 mls/hr IVPB Q1H JACQUI Rx#: [id number] NS 150 20 Potassium Phosphate 10 500 mmol In Sodium Chloride 0 .9% 250 ml @ 125 mls/hr IV Q2H JACQUI Rx#:[id number] Sodium Chloride 0.9% 1, 530 450 000 ml @ 100 mls/hr IV . Q10H JACQUI Rx#:[id number] Intake, IV Titration 39.407 Amount Norepinephrin 4 mg-0.9% 39.407 Ns Pmx 4 mg In 250 ml @ Titrate IV .Q0M JACQUI Rx#: [id number] Oral 1200 360 Output: Urine 2770 1600 2300 Other: Voiding Method Urinal Urinal Urinal ABP, PAP, CO, CI - Last Documented Arterial Blood Pressure 94/56 - Exam Gen. appearance the patient is calm, likely distress Head exam was generally normal. There was no scleral icterus or corneal arcus. Mucous membranes were moist. Neck was supple and without jugular venous distension, thyromegaly, or carotid bruits. Carotids were easily palpable bilaterally. There was no adenopathy. Patient has significant crowding of the posterior oropharynx and Mallampati class IV Lungs sounds are diminished and there is some limited bibasilar crackles otherwise clear. Cardiac exam revealed the PMI to be normally situated and sized. The rhythm was regular and no extrasystoles were noted during several minutes of auscultation. The first and second heart sounds were normal and physiologic splitting of the second heart sound was noted. There were no murmurs, rubs, clicks, or gallops. Abdominal exam revealed normal bowel sounds. The abdomen was soft, non-tender, and without masses, organomegaly, or appreciable enlargement of the abdominal aorta. Examination of the extremities revealed easily palpable radial, femoral and pedal pulses. There was no cyanosis, clubbing or edema. Examination of the skin revealed no evidence of significant rashes, suspicious appearing nevi or other concerning lesions. Neurologically patient is awake and alert and is no focal neurological deficit - Labs CBC & Chem 7: 01/19/18 06:25 01/19/18 06:25 Labs: Abnormal Lab Results - Last 24 Hours (Table) 01/18/18 01/18/18 01/19/18 Range/Units 03:45 18:31 00:32 WBC (3.8-10.6) k/uL RBC (4.30-5.90) m/uL Neutrophils # (1.3-7.7) k/uL Lymphocytes # (1.0-4.8) k/uL Chloride (98-107) mmol/L Carbon Dioxide (22-30) mmol/L Glucose (74-99) mg/dL Hemoglobin A1c 6.3 H (4.0-6.0) % Calcium (8.4-10.2) mg/dL Phosphorus (2.5-4.5) mg/dL CK-MB (CK-2) 106.0 H* 54.6 H* (0.0-2.4) ng/mL Troponin I 117.000 H* (0.000-0.034) ng/mL 01/19/18 01/19/18 01/19/18 Range/Units 06:25 06:25 06:25 WBC 13.8 H (3.8-10.6) k/uL RBC 4.22 L (4.30-5.90) m/uL Neutrophils # 12.2 H (1.3-7.7) k/uL Lymphocytes # 0.9 L (1.0-4.8) k/uL Chloride 112 H (98-107) mmol/L Carbon Dioxide 21 L (22-30) mmol/L Glucose 110 H (74-99) mg/dL Hemoglobin A1c (4.0-6.0) % Calcium 8.3 L (8.4-10.2) mg/dL Phosphorus 1.9 L (2.5-4.5) mg/dL CK-MB (CK-2) 29.9 H* (0.0-2.4) ng/mL Troponin I 62.400 H* (0.000-0.034) ng/mL Microbiology - Last 24 Hours (Table) 01/17/18 00:01 Urine Culture - Final Urine,Catheterized Assessment and Plan Plan: Assessment [address] segment elevation myocardial infarction, status post emergent cardiac catheterization and stenting of circumflex. Patient is postop day #2 following his coronary stenting the patient has improved and is currently hemodynamically stable. 2 third-degree AV block secondary to above, recovered and the patient rhythm is back to sinus 3 cardiogenic shock secondary to above, improving and echo showing improvement in LV function with ejection fraction of 40-45%, and there has been significant improvement in the blood pressure and currently the patient is off pressors. 4 acute hypoxic respiratory failure, improving. The patient is post vent dependent respiratory failure from which he recovered and the patient was extubated without any major difficulties. Currently the patient is on room air. 5 hypotension secondary to above, recovered 6 smoker 7 obesity BMI of 36.1 8 obstructive sleep apnea Plan The patient is doing well. The patient came moved out of the intensive care unit. IV fluids to KVO. Start metoprolol 25 mg sputum twice a day. Continue aspirin. Continue Brilinta. We will arrange this patient APAP machine regarding his obstructive sleep apnea to be utilized on outpatient basis. Smoking cessation counseling was done. We'll continue to follow.
--- NOTE | 2018-01-19 13:31 | PN ---
PROGRESS NOTE This patient is status post inferior wall myocardial infarction with stent to the circumflex coronary artery. The patient is doing fairly well. Denies any chest pain or shortness of breath. The patient's heart rate now is 100, blood pressure is 102/69 mmHg. First and second heart sounds are normal. Lungs are clinically clear to auscultation and percussion. Patient's hemoglobin is 13.4, maximum troponin was 117. We will increase the dose of Lopressor to 25 mg b.i.d. and continue the current medications. MMODL / IJN: [id number] /
--- NOTE | 2018-01-19 15:45 | P.PN ---
Subjective Progress Note Date: 01/19/18 Principal diagnosis: Patient seen for cardiogenic shock, and STEMI Patient seen and examined today, no new complaints, he is IV pressors, however he reports easy fatigability just walking to the bathroom or getting off the bed. Otherwise denies any chest pain or trouble breathing. he is tolerating diet Objective - Vital Signs Vital signs: Vital Signs Temp 98.6 F 01/19/18 12:00 Pulse 86 01/19/18 12:00 Resp 10 L 01/19/18 12:00 BP 102/69 01/19/18 12:00 Pulse Ox 96 01/19/18 12:00 Intake & Output 01/18/18 01/19/18 01/19/18 18:59 06:59 18:59 Intake Total 1969.407 960 520 Output Total 2770 1600 3000 Balance -800.593 -640 -2480 Weight 107.7 kg 107.4 kg Intake: IV 730 600 520 Magnesium Sulfate-D5w Pmx 200 1 gm In Dextrose/Water 1 100ml.bag @ 100 mls/hr IVPB Q1H JACQUI Rx#: [id number] NS 150 20 Potassium Phosphate 10 500 mmol In Sodium Chloride 0 .9% 250 ml @ 125 mls/hr IV Q2H JACQUI Rx#:[id number] Sodium Chloride 0.9% 1, 530 450 000 ml @ 100 mls/hr IV . Q10H JACQUI Rx#:[id number] Intake, IV Titration 39.407 Amount Norepinephrin 4 mg-0.9% 39.407 Ns Pmx 4 mg In 250 ml @ Titrate IV .Q0M JACQUI Rx#: [id number] Oral 1200 360 Output: Urine 2770 1600 3000 Other: Voiding Method Urinal Urinal Urinal ABP, PAP, CO, CI - Last Documented Arterial Blood Pressure 94/56 - Exam Constitutional: vital signs stable, Not in acute distress, pleasant, conversant Lungs: Clear to auscultation bilaterally, clear to percussion, normal respiratory effort no use of accessory muscles Cardiovascular: Regular rate and rhythm, no murmurs, no gallops, no rubs, no peripheral edema Gastrointestinal: Soft, no tenderness to palpation, no palpable hepatosplenomegally, bowel sounds positive Skin: Heart cath Access site in the in the right groin was examined, no swelling , no ecchymosis, no bleeding, no tenderness to palpation, no bruits Extremities: No digital cyanosis or clubbing, peripheral pulses palpable and equal over bilateral radial arteries and dorsalis pedis artery, no calf muscle tenderness Psych: Alert, oriented to place, person and time, appropriate affect, intact judgment - Labs CBC & Chem 7: 01/19/18 06:25 01/19/18 06:25 Labs: Abnormal Lab Results - Last 24 Hours (Table) 01/18/18 01/18/18 01/19/18 Range/Units 03:45 18:31 00:32 WBC (3.8-10.6) k/uL RBC (4.30-5.90) m/uL Neutrophils # (1.3-7.7) k/uL Lymphocytes # (1.0-4.8) k/uL Chloride (98-107) mmol/L Carbon Dioxide (22-30) mmol/L Glucose (74-99) mg/dL Hemoglobin A1c 6.3 H (4.0-6.0) % Calcium (8.4-10.2) mg/dL Phosphorus (2.5-4.5) mg/dL CK-MB (CK-2) 106.0 H* 54.6 H* (0.0-2.4) ng/mL Troponin I 117.000 H* (0.000-0.034) ng/mL 01/19/18 01/19/18 01/19/18 Range/Units 06:25 06:25 06:25 WBC 13.8 H (3.8-10.6) k/uL RBC 4.22 L (4.30-5.90) m/uL Neutrophils # 12.2 H (1.3-7.7) k/uL Lymphocytes # 0.9 L (1.0-4.8) k/uL Chloride 112 H (98-107) mmol/L Carbon Dioxide 21 L (22-30) mmol/L Glucose 110 H (74-99) mg/dL Hemoglobin A1c (4.0-6.0) % Calcium 8.3 L (8.4-10.2) mg/dL Phosphorus 1.9 L (2.5-4.5) mg/dL CK-MB (CK-2) 29.9 H* (0.0-2.4) ng/mL Troponin I 62.400 H* (0.000-0.034) ng/mL Microbiology - Last 24 Hours (Table) 01/17/18 00:01 Urine Culture - Final Urine,Catheterized Assessment and Plan Assessment: 52-year-old male with no significant past medical history other than smoking. Presents to the hospital due to cardiogenic shock, advanced AV block, and inferior STEMI. He was transferred from [facility] to our hospital for further care. Patient had left heart cath through a right groin, and received thrombectomy and stent placement in the left circumflex. Patient then was intubated for a short period until he tolerated extubation successfully. He required IV pressors to support his cardiac function due to cardiogenic shock however that was successfully weaned off the next day. Patient continues on statin, Brilinta. He was started on beta danyell and lisinopril once his blood pressure tolerated and he was off IV pressors. Patient is doing well and recovering as anticipated Plan: #Inferior STEMI status post left heart cath status post stent #Cardiogenic shock with acute left ventricular systolic heart failure with left ventricular ejection fraction of 35-40%,, resolved #Advanced AV block, currently resolved post coronary reperfusion post stents Continue with antiplatelets (aspirin and brilinta)and statin, Beta blockers started today Patient making good urine output Cardiac enzymes trending down #Prediabetes, with A1c of 6.3 Patient counseled regarding lifestyle modification, controlling carbs in his diet #Tobacco smoking abuse Patient counseled to quit smoking #DVT prophylaxis on heparin subcu 3 times a day # #Leukocytosis improving Afebrile This is secondary to STEMI
[2018-01-19] MEDS: METOPROLOL TARTRATE 25 MG TAB PO SCH (21:35)
[2018-01-19] MEDS: ATORVASTATIN 80 MG TAB PO SCH (21:37)
[2018-01-20 02:35] VITALS: RESP 18
[2018-01-20 06:10] LABS: Basophils % (A) 0 %; Eosinophils # (A) 0.2 k/uL (0-0.7); Eosinophils % (A) 1 %; HCT 39.6 % (39.0-53.0); Lymphocytes # (A) 1.5 k/uL (1.0-4.8); Lymphocytes % (A) 13 %; MCH 31.2 pg (25.0-35.0); MCHC 32.8 g/dL (31.0-37.0); Mean Platelet Volume 7.9; Monocytes # (A) 0.5 k/uL (0-1.0); Monocytes % (A) 4 %; Neutrophils # (A) 9.6 k/uL (1.3-7.7); Neutrophils % (A) 81 %; Platelet Count 193 k/uL (150-450); RBC 4.16 m/uL (4.30-5.90); RDW 13.4 % (11.5-15.5); WBC 11.9 k/uL (3.8-10.6)
[2018-01-20 06:19] LABS: Anion Gap 8 mmol/L; Blood Urea Nitrogen 11 mg/dL (9-20); Calcium 8.7 mg/dL (8.4-10.2); Carbon Dioxide 25 mmol/L (22-30); Chloride 108 mmol/L (98-107); Glucose 102 mg/dL (74-99); Magnesium 1.9 mg/dL (1.6-2.3); Phosphorus 2.8 mg/dL (2.5-4.5); Potassium 4.1 mmol/L (3.5-5.1); Sodium 141 mmol/L (137-145)
[2018-01-20] MEDS ORDERED: PANTOPRAZOLE 40 MG TABLET PO SCH (07:30)
[2018-01-20] MEDS: NICOTINE 21MG/24HR PATCH TRANSDERM SCH (08:04)
[2018-01-20] MEDS: TICAGRELOR 90 MG TAB PO SCH (08:05)
[2018-01-20] MEDS: METOPROLOL TARTRATE 25 MG TAB PO SCH (08:05)
[2018-01-20] MEDS: HEPARIN SODIUM,PORCINE 5,000 UNIT/ML 1 ML VIAL SQ SCH (08:05)
[2018-01-20] MEDS: ASPIRIN 81 MG PO SCH (08:05)
[2018-01-20] MEDS ORDERED: MORPHINE ORAL SOLN 10 MG/5 ML CUP PO PRN (09:10)
[2018-01-20 11:47] VITALS: BP 115/71; PULSE 93; TEMP 98.8
--- NOTE | 2018-01-20 13:47 | P.PN ---
Subjective Progress Note Date: 01/20/18 Principal diagnosis: Inferior wall CO This is a 52-year-old gentleman who presented to the hospital with an acute inferior wall myocardial infarction. He underwent stent placement of the circumflex artery. Patient was seen and examined this morning, he is hemodynamically stable. He has been up ambulating in the hallway without any difficulty. White blood cell count 11.9, hemoglobin 13, platelet count 193. Sodium 141, potassium 4.1, BUN 11, creatinine 0.8. Objective - Vital Signs Vital signs: Vital Signs Temp 98.8 F 01/20/18 11:42 Pulse 93 01/20/18 11:42 Resp 18 01/20/18 11:42 BP 115/71 01/20/18 11:42 Pulse Ox 93 L 01/20/18 11:42 Intake & Output 01/19/18 01/20/18 01/20/18 18:59 06:59 18:59 Intake Total 760 200 720 Output Total 3000 Balance -2240 200 720 Weight 104.8 kg Intake: IV 520 NS 20 Potassium Phosphate 10 500 mmol In Sodium Chloride 0 .9% 250 ml @ 125 mls/hr IV Q2H JACQUI Rx#:[id number] Oral 240 200 720 Output: Urine 3000 Other: Voiding Method Urinal Toilet Toilet # Voids 1 2 ABP, PAP, CO, CI - Last Documented Arterial Blood Pressure 94/56 - Exam PHYSICAL EXAMINATION: HEENT: Head is atraumatic, normocephalic. Pupils equal, round. Neck is supple. There is no elevated jugular venous pressure. HEART EXAMINATION: Heart S1, S2 normal. No murmur or gallop heard. CHEST EXAMINATION: Lungs are clear to auscultation and precussion. No chest wall tenderness is noted on palpation or with deep breathing. ABDOMEN: Soft, nontender. Bowel sounds are heard. No organomegaly noted. EXTREMITIES: 2+ peripheral pulses with no evidence of peripheral edema and no calf tenderness noted. NEUROLOGIC patient is awake, alert and oriented -3. . - Labs CBC & Chem 7: 01/20/18 05:27 01/20/18 05:27 Labs: Abnormal Lab Results - Last 24 Hours (Table) 01/19/18 01/20/18 01/20/18 Range/Units 00:32 05:27 05:27 WBC 11.9 H (3.8-10.6) k/uL RBC 4.16 L (4.30-5.90) m/uL Neutrophils # 9.6 H (1.3-7.7) k/uL Chloride 108 H (98-107) mmol/L Glucose 102 H (74-99) mg/dL Troponin I 93.000 H* (0.000-0.034) ng/mL Microbiology - Last 24 Hours (Table) 01/17/18 00:01 Urine Culture - Final Urine,Catheterized Assessment and Plan Plan: Assessment and plan #1 acute inferior wall myocardial infarction, status post angioplasty and stenting of the circumflex artery. #2 third-degree heart block secondary to acute CO. Resolved post-stenting. #3 hypotension, resolved #4 nicotine dependence #5 obstructive sleep apnea Plan Patient may be able to be discharged home today from cardiology's perspective. We will make him a follow-up appointment to see Dr. Sosa in the office post discharge. Patient will be discharged home on aspirin 81 mg daily, Lipitor 80 mg daily, metoprolol 25 mg one tablet by mouth twice a day, nicotine patch, Brilinta 90 mg twice a day and sublingual nitroglycerin as needed for chest pain. DNP note has been reviewed, I agree with a documented findings and plan of care. Patient was seen and examined.
--- NOTE | 2018-01-20 14:10 | P.PN ---
Subjective Progress Note Date: 01/20/18 Principal diagnosis: Acute inferior wall ST segment elevated myocardial infarction, post stenting of the circumflex coronary artery, third degree AV block, recovered A pleasant 52-year-old male patient, a chronic smoker also with known history of obstructive sleep apnea, the chance for from [facility] emergency department where the patient presented yesterday because of increased shortness of breath and chest pain. The patient was found to have an acute inferior wall ST segment elevation myocardial infarction [place] by third -degree AV block and cardiogenic shock. The patient was intubated in the emergency department and the patient was placed on a mechanical ventilator. Subsequently the patient got transferred to [facility] for further evaluation. Immediately the patient was taken to the [facility]. The patient underwent a emergent cardiac catheterization and was found to have occluded large and dominant left circumflex artery that was angioplastied was stented with good angiographic results and without any complications. Aspiration thrombectomy was done and the large thrombus burden was extracted from the left circumflex artery. The RCA was small and nondominant and the LAD had only mild disease. LV angiogram at that time showed an ejection fraction of 35-40% with evidence of inferior wall hypokinesis. The patient was brought into the intensive care unit following the procedure. Overnight patient required pressors and the patient was as high as 10 mics of norepinephrine infusion for blood pressure control. The initial blood gases showed a pH of 7.34 with a pCO2 of 33 and pO2 of 329. The patient was checked on FiO2 of 100% with a PEEP of 5 and total volume of 500. Subsequently the patient had the FiO2 weaned down to 40% and he was taken off sedation this point is breathing trial was done and blood gas in 30 minutes showed a pH of 7.4 with a pCO2 of 30 and pO2 of 76 and he was extubated. This morning, his chest x-ray shows a perihilar pulmonary infiltrates and consistent with CHF. He is on 2 mics of norepinephrine infusion and the presence of been weaned off. His diffusing around 70-80 mL an hour of urine output. No chest pain. He has converted to normal sinus rhythm. Echocardiogram was done and it showed a mild LV function with ejection fraction 45-50%. There was evidence of inferior wall hypokinesis. No other significant valvular abnormalities in the left ventricular size was within normal limits. Right ventricular systolic pressure was 13.7 mmHg. The patient is awake. His communicating. He has no specific complaints otherwise for now. No swelling in lower extremities. No nausea or vomiting. No altered mentation. No syncope. On 01/19/2018 and seeing this patient for follow-up. The patient is awake and alert and the patient is sitting up on a chair. No major respiratory distress. No cough or sputum production. No chest pain. The patient was weaned off the pressors and the patient has been off pressors for the past 12 hours. His IV fluids are gradually being weaned down to KVO. He is maintaining his own pressure. Slightly in sinus tachycardia. No nausea. No vomiting. No abdominal pain. No chest pain. Altered mentation. No other cardiac arrhythmias noted. The patient is 40 covered from his third-degree AV block. He is having a decline in the troponin and a troponin peaked 117. Echocardiogram showed a preserved or mildly impaired LV function with an ejection fraction 35-40% and the patient is also having some inferior wall hypokinesis. On 01/20/2018 patient seen in follow-up selective care unit. He is awake, alert , oriented 3, denies any distress, denies any shortness of breath or chest pain. No nausea no vomiting, vital signs are stable, patient is on room air, with O2 sat at 93%, hemodynamically stable, respirations are even and nonlabored , lung sounds are clear to auscultation. Patient continues on a combination of [place] to and aspirin, metoprolol was started at 25 mg twice daily, and the patient is tolerating it well. Patient has been ambulating, and tolerating activity well. Patient had previously been diagnosed with obstructive sleep apnea, however he had returned his CPAP machine back to the [employer] due to low usage. Based on the results of his previous sleep study, patient would definitely benefit from home CPAP device, and he is recommended to wear it. Arrangements will be made for a home CPAP device the full face mask before patient is discharged from the hospital. Patient will need a follow-up for his CPAP device titration sleep center within 30-[address] Wyman. Objective - Vital Signs Vital signs: Vital Signs Temp 98.8 F 01/20/18 11:42 Pulse 93 01/20/18 11:42 Resp 18 01/20/18 11:42 BP 115/71 01/20/18 11:42 Pulse Ox 93 L 01/20/18 11:42 Intake & Output 01/19/18 01/20/18 01/20/18 18:59 06:59 18:59 Intake Total 760 200 720 Output Total 3000 Balance -2240 200 720 Weight 104.8 kg Intake: IV 520 NS 20 Potassium Phosphate 10 500 mmol In Sodium Chloride 0 .9% 250 ml @ 125 mls/hr IV Q2H JACQUI Rx#:[id number] Oral 240 200 720 Output: Urine 3000 Other: Voiding Method Urinal Toilet Toilet # Voids 1 2 ABP, PAP, CO, CI - Last Documented Arterial Blood Pressure 94/56 - Exam Gen. appearance the patient is calm, likely distress Head exam was generally normal. There was no scleral icterus or corneal arcus. Mucous membranes were moist. Neck was supple and without jugular venous distension, thyromegaly, or carotid bruits. Carotids were easily palpable bilaterally. There was no adenopathy. Patient has significant crowding of the posterior oropharynx and Mallampati class IV Lungs sounds are diminished, no crackles, wheezes or rales noted on today's exam Cardiac exam revealed the PMI to be normally situated and sized. The rhythm was regular and no extrasystoles were noted during several minutes of auscultation. The first and second heart sounds were normal and physiologic splitting of the second heart sound was noted. There were no murmurs, rubs, clicks, or gallops. Abdominal exam revealed normal bowel sounds. The abdomen was soft, non-tender, and without masses, organomegaly, or appreciable enlargement of the abdominal aorta. Examination of the extremities revealed easily palpable radial, femoral and pedal pulses. There was no cyanosis, clubbing or edema. Examination of the skin revealed no evidence of significant rashes, suspicious appearing nevi or other concerning lesions. Neurologically patient is awake and alert and is no focal neurological deficit - Labs CBC & Chem 7: 01/20/18 05:27 01/20/18 05:27 Labs: Abnormal Lab Results - Last 24 Hours (Table) 01/19/18 01/20/18 01/20/18 Range/Units 00:32 05:27 05:27 WBC 11.9 H (3.8-10.6) k/uL RBC 4.16 L (4.30-5.90) m/uL Neutrophils # 9.6 H (1.3-7.7) k/uL Chloride 108 H (98-107) mmol/L Glucose 102 H (74-99) mg/dL Troponin I 93.000 H* (0.000-0.034) ng/mL Microbiology - Last 24 Hours (Table) 01/17/18 00:01 Urine Culture - Final Urine,Catheterized Assessment and Plan Plan: Assessment: [address] segment elevation myocardial infarction, status post emergent cardiac catheterization and stenting of circumflex. Patient is postop day #2 following his coronary stenting the patient has improved and is currently hemodynamically stable. 2 third-degree AV block secondary to above, recovered and the patient rhythm is back to sinus 3 cardiogenic shock secondary to above, improving and echo showing improvement in LV function with ejection fraction of 40-45%, and there has been significant improvement in the blood pressure and currently the patient is off pressors. 4 acute hypoxic respiratory failure, improving. The patient is post vent dependent respiratory failure from which he recovered and the patient was extubated without any major difficulties. Currently the patient is on room air. 5 hypotension secondary to above, recovered 6 smoker 7 obesity BMI of 36.1 8 obstructive sleep apnea Plan: Patient is doing well, stable, no chest pain, no dyspnea. Vital signs are stable, he shouldn't was started on metoprolol, continues on aspirin and Inman tach, no further episodes of arrhythmia. Tolerating ambulation. Patient will be arranged for home CPAP device for his obstructive sleep apnea. He had a previous CPAP device through [facility] a few years back, however he had to return it due to low usage. Patient would benefit from wearing a CPAP device due to his severe obstructive sleep apnea. Patient will need an outpatient follow-up in the sleep center for CPAP titration to 60 days of discharge [address] Dr[address] Wyman. I performed a history & physical examination of the patient and discussed their management with my nurse practitioner, Vika Umanzor. I reviewed the nurse practitioner's note and agree with the documented findings and plan of care. Lung sounds are positive for clear lung sounds. The findings and the impression was discussed with the patient. I attest to the documentation by the nurse practitioner. Time with Patient: Less than 30
--- NOTE | 2018-01-20 17:24 | P.DS ---
Providers Date of admission: 01/17/18 18:05 Attending physician: Nolan Crabtree MD Consults: 01/17/18 19:22 Consult Physician Routine Consulting Provider: [facility] Consult Reason/Comments: Post Interventional patient Do you want consulting provider notified?: Already Contacted Placement Type Exists?: Yes 01/17/18 19:25 Consult Physician Stat Consulting Provider: Mickey Wyman Consult Reason/Comments: Respiratory failure Do you want consulting provider notified?: Yes Consult Physician Stat Consulting Provider: Devin Bryant Consult Reason/Comments: STEMI Do you want consulting provider notified?: Yes Primary care physician: [facility] Course: Final diagnoses at discharge Acute inferior STEMI, status post stent Ischemic cardiomyopathy with left ventricular ejection fraction of 35-40% Secondary diagnoses Obstructive sleep apnea untreated Obesity Tobacco smoking abuse Prediabetes mellitus with A1c of 6.3 52-year-old male with no significant past medical history other than smoking. Presents to the hospital due to cardiogenic shock, advanced AV block, and inferior STEMI. He was transferred from [facility] to our hospital for further care. Patient had left heart cath through a right groin, and received thrombectomy and stent placement in the left circumflex. Patient then was intubated for a short period until he tolerated extubation successfully. He required IV pressors to support his cardiac function due to cardiogenic shock however that was successfully weaned off the next day. Patient continues on statin, Brilinta. He was started on beta danyell and lisinopril once his blood pressure tolerated and he was off IV pressors. Patient is doing well and recovering as anticipated. Patient still reports easy fatigability but some improvement, ambulatory oxygen saturation was unremarkable. Cardiology cleared the patient for discharge. He was only started on beta danyell for now due to initial hypotension, he will follow-up with cardiology to initiate his ANANDA inhibitor as tolerated. Patient will require repeat 2-D echocardiogram in 3 months to evaluate for progress and improvement. He was encouraged for lifestyle modification and weight loss. To continue on low-fat low-salt diet. Patient continued on statin aspirin and Brilinta. Constitutional: vital signs stable, Not in acute distress, pleasant, conversant Lungs: Clear to auscultation bilaterally, clear to percussion, normal respiratory effort Cardiovascular: Regular rate and rhythm, no murmurs, no gallops, no rubs, no peripheral edema Gastrointestinal: Soft, no tenderness to palpation, no palpable hepatosplenomegally, bowel sounds positive Skin: Heart cath Access site in the in the right groin was examined, no swelling , no ecchymosis, no bleeding, no tenderness to palpation, no bruits Extremities: No digital cyanosis or clubbing, peripheral pulses palpable and equal over bilateral radial arteries and dorsalis pedis artery, no calf muscle tenderness Psych: Alert, oriented to place, person and time, appropriate affect, intact judgment Patient counseled again to quit smoking, to follow up with cardiology as recommended Follow-up with pulmonary service to set up with a CPAP machine and couldn't sleep study for titration I stressed the fact that the patient need to be compliant with his antiplatelets Dietary changes, low-fat low-salt diet. No weight lifting or heavy exertion for at least a week Prescriptions were sent to patient preferred pharmacy Follow-up with PCP 40 minutes were spent discharging this patient, and more than 50% of the time was spent in counseling the patient and family and in coordinating care. Procedures: Left heart cath status post stents Patient Condition at Discharge: Stable Plan - Discharge Summary New Discharge Prescriptions: New Aspirin 81 mg PO DAILY #30 chew Atorvastatin [Lipitor] 80 mg PO HS #30 tab Metoprolol Tartrate [Lopressor] 25 mg PO BID #60 tab Nicotine 21Mg/24Hr Patch [Habitrol] 1 patch TRANSDERM DAILY #30 patch Nitroglycerin Sl Tabs [Nitrostat] 0.4 mg SUBLINGUAL Q5M PRN #25 tab PRN Reason: Chest Pain Ticagrelor [Brilinta] 90 mg PO BID #60 tab Pantoprazole [Protonix] 40 mg PO AC-BRKFST #30 tablet.dr Discharge Medication List Aspirin 81 mg PO DAILY #30 chew 01/20/18 [Rx] Atorvastatin [Lipitor] 80 mg PO HS #30 tab 01/20/18 [Rx] Metoprolol Tartrate [Lopressor] 25 mg PO BID #60 tab 01/20/18 [Rx] Nicotine 21Mg/24Hr Patch [Habitrol] 1 patch TRANSDERM DAILY #30 patch 01/20/18 [ Rx] Nitroglycerin Sl Tabs [Nitrostat] 0.4 mg SUBLINGUAL Q5M PRN #25 tab 01/20/18 [Rx ] Pantoprazole [Protonix] 40 mg PO AC-BRKFST #30 tablet. 01/20/18 [Rx] Ticagrelor [Brilinta] 90 mg PO BID #60 tab 01/20/18 [Rx] Follow up Appointment(s)/Referral(s): Devin Bryant MD [STAFF PHYSICIAN] - 01/28/18 11:30 am (wednesday ) Darya Salamanca MD [Primary Care Provider] - 01/27/18 11:30 am Mickey Wyman MD [STAFF PHYSICIAN] - 01/24/18 1:30 pm (Please be to office at 1:00 pm) Patient Instructions/Handouts: *Surgery [facility] - After Heart Catheterization - Warp Knit Operator Instructions, Myocardial Infarction (DC), Left Heart Catheterization (DC), DASH Eating Plan (DC) Activity/Diet/Wound Care/Special Instructions: [facility] [phone] someone will contact pt for CPAP for set up at noon on 01-21-18 Discharge Disposition: HOME SELF-CARE
== END 2018-01-20 16:00 | disposition home or self-care (01) | DRG 246 ==
LOC: 6ICU 18:05 → 6SEL 01-19 14:41
PROVIDERS: ADMIT Internal Medicine; ATTEND Internal Medicine
PROC: B2111ZZ Fluoroscopy of Multiple Coronary Arteries using Low Osmolar Contrast (ICD-10-PCS; 2018-01-17)
PROC: B2151ZZ Fluoroscopy of Left Heart using Low Osmolar Contrast (ICD-10-PCS; 2018-01-17)
PROC: 027034Z Dilation of Coronary Artery, One Artery with Drug-eluting Intraluminal Device, Percutaneous Approach (ICD-10-PCS; principal; 2018-01-17 18:02)
PROC: 4A023N7 Measurement of Cardiac Sampling and Pressure, Left Heart, Percutaneous Approach (ICD-10-PCS; 2018-01-17 18:02)
DX: I21.19 ST elevation (STEMI) myocardial infarction involving other coronary artery of inferior wall (principal); J96.01 Acute respiratory failure with hypoxia; R57.0 Cardiogenic shock; I44.2 Atrioventricular block, complete; E66.9 Obesity, unspecified; F17.200 Nicotine dependence, unspecified, uncomplicated; G47.33 Obstructive sleep apnea (adult) (pediatric); I25.10 Atherosclerotic heart disease of native coronary artery without angina pectoris; I25.5 Ischemic cardiomyopathy; R73.03 Prediabetes; I10 Essential (primary) hypertension; D72.829 Elevated white blood cell count, unspecified; Z68.36 Body mass index [BMI] 36.0-36.9, adult; Z71.6 Tobacco abuse counseling; Z82.49 Family history of ischemic heart disease and other diseases of the circulatory system
CPT/HCPCS: 36600; 71045; 80048; 80061; 81001; 82553; 82805; 83036; 83735; 84100; 84443; 84484; 85025; 87086; 93306; 93458; 94002; 94003

== ENCOUNTER 2018-04-18 09:00 | Observation (INO) | payer BC ==
--- NOTE | 2018-04-18 09:23 | ED ---
General Adult HPI - General Chief complaint: Chest Pain Stated complaint: Feeling funny had heart attack in January Time Seen by Provider: 04/18/18 09:07 Source: patient, RN notes reviewed, old records reviewed Mode of arrival: ambulatory Limitations: no limitations - History of Present Illness Initial comments: 52-year-old male presenting with chief complaint of "feeling weird". Patient is presenting from cardiac rehab, he had a FL in January of this year. He did have stenting of the circumflex artery at that time. He states that his symptoms include some lightheadedness, some mild chest pressure, no significant chest pain. No vomiting, patient does report some slight nausea. No abdominal pain. No fever or chills. No dyspnea. Patient did miss 1 dose of his antiplatelet agent yesterday morning. He is subsequently taken yesterday evening dose and this morning's dose. - Related Data Previous Rx's Medication Instructions Recorded Aspirin 81 mg PO DAILY #30 chew 01/20/18 Atorvastatin [Lipitor] 80 mg PO HS #30 tab 01/20/18 Nitroglycerin Sl Tabs [Nitrostat] 0.4 mg SUBLINGUAL Q5M PRN #25 tab 01/20/18 Ticagrelor [Brilinta] 90 mg PO BID #60 tab 01/20/18 Allergies Allergy/AdvReac Type Severity Reaction Status Date / Time No Known Allergies Allergy Verified 04/18/18 10:08 Review of Systems ROS Statement: Those systems with pertinent positive or pertinent negative responses have been documented in the HPI. ROS Other: All systems not noted in ROS Statement are negative. Past Medical History Past Medical History: Hypertension, Myocardial Infarction ([place]) Additional Past Medical History / Comment(s): Coronary artery disease with an inferior wall myocardial infarction, obesity, obstructive sleep apnea, smoker , hypertension History of Any Multi-Drug Resistant Organisms: None Reported Past Surgical History: Back Surgery, Heart Catheterization With Stent Past Anesthesia/Blood Transfusion Reactions: No Reported Reaction Past Psychological History: No Psychological Hx Reported Smoking Status: Former smoker Past Alcohol Use History: Occasional Past Drug Use History: None Reported - Past Family History Brother(s) Family Medical History: Myocardial Infarction ([place]) Additional Family Medical History / Comment(s): in his 40s Mother Family Medical History: Coronary Artery Disease (CAD) General Exam Limitations: no limitations General appearance: alert, in no apparent distress Head exam: Present: atraumatic, normocephalic Eye exam: Present: normal appearance, PERRL ENT exam: Present: normal exam, normal oropharynx Neck exam: Present: normal inspection. Absent: tenderness Respiratory exam: Present: normal lung sounds bilaterally. Absent: respiratory distress, wheezes Cardiovascular Exam: Present: regular rate, normal rhythm GI/Abdominal exam: Present: soft. Absent: distended, tenderness Extremities exam: Present: normal inspection, normal capillary refill. Absent: pedal edema Neurological exam: Present: alert, oriented X3, CN II-XII intact. Absent: motor sensory deficit Psychiatric exam: Present: normal affect, normal mood Skin exam: Present: warm, dry, intact. Absent: cyanosis, diaphoretic Course Vital Signs 04/18/18 04/18/18 09:13 10:15 Temperature 97.9 F Pulse Rate 83 76 Respiratory 20 16 Rate Blood Pressure 124/83 112/80 O2 Sat by Pulse 96 98 Oximetry - Reevaluation(s) Reevaluation #1: 04/18/18 09:45 Case discussed with cardiology on-call Dr. Dodge. EKG Findings - EKG Comments: EKG Findings:: EKG: Normal sinus rhythm, age undetermined inferior posterior infarct with Q waves in the inferior leads, there is T-wave inversion in lead 3. No ST segment elevation or depression. There is a ventricular rate of 87, TX interval 168, QRS duration 96, QTC 473 Medical Decision Making - Medical Decision Making 52-year-old male presenting with vague symptoms including some mild chest tightness and lightheadedness. Patient does have history of CAD status post FL. EKG shows some nonspecific changes including T-wave inversion in the inferior leads and evidence of previous FL. There is no ST segment changes. Chest x-ray negative for focal pneumonia or acute intrathoracic process. CBC, CMP are within normal limits, initial troponin is negative. Given the patient' s risk factors and previous heart history he will be kept in observation for serial cardiac enzymes and cardiology consultation. - Lab Data Result diagrams: 04/18/18 09:23 04/18/18 09:23 Lab Results 04/18/18 04/18/18 04/18/18 Range/Units 09:23 09:23 09:23 WBC 10.4 (3.8-10.6) k/uL RBC 4.58 (4.30-5.90) m/uL Hgb 13.5 (13.0-17.5) gm/dL Hct 42.7 (39.0-53.0) % MCV 93.2 (80.0-100.0) fL MCH 29.5 (25.0-35.0) pg MCHC 31.6 (31.0-37.0) g/dL RDW 13.6 (11.5-15.5) % Plt Count 239 (150-450) k/uL Neutrophils % 74 % Lymphocytes % 16 % Monocytes % 6 % Eosinophils % 2 % Basophils % 0 % Neutrophils # 7.7 (1.3-7.7) k/uL Lymphocytes # 1.7 (1.0-4.8) k/uL Monocytes # 0.6 (0-1.0) k/uL Eosinophils # 0.2 (0-0.7) k/uL Basophils # 0.0 (0-0.2) k/uL PT (9.0-12.0) sec INR (<1.2) APTT (22.0-30.0) sec Sodium 141 (137-145) mmol/L Potassium 5.0 (3.5-5.1) mmol/L Chloride 107 (98-107) mmol/L Carbon Dioxide 25 (22-30) mmol/L Anion Gap 9 mmol/L BUN 17 (9-20) mg/dL Creatinine 0.95 (0.66-1.25) mg/dL Est GFR (CKD-EPI)AfAm >90 (>60 ml/min/1.73 sqM) Est GFR (CKD-EPI)NonAf >90 (>60 ml/min/1.73 sqM) Glucose 109 H (74-99) mg/dL Calcium 9.6 (8.4-10.2) mg/dL Magnesium 1.8 (1.6-2.3) mg/dL Total Bilirubin 1.0 (0.2-1.3) mg/dL AST 35 (17-59) U/L ALT 45 (21-72) U/L Alkaline Phosphatase 54 (38-126) U/L Total Creatine Kinase 272 H (55-170) U/L CK-MB (CK-2) 2.3 (0.0-2.4) ng/mL CK-MB (CK-2) Rel Index 0.8 Troponin I <0.012 (0.000-0.034) ng/mL Total Protein 6.7 (6.3-8.2) g/dL Albumin 4.3 (3.5-5.0) g/dL 04/18/18 Range/Units 09:23 WBC (3.8-10.6) k/uL RBC (4.30-5.90) m/uL Hgb (13.0-17.5) gm/dL Hct (39.0-53.0) % MCV (80.0-100.0) fL MCH (25.0-35.0) pg MCHC (31.0-37.0) g/dL RDW (11.5-15.5) % Plt Count (150-450) k/uL Neutrophils % % Lymphocytes % % Monocytes % % Eosinophils % % Basophils % % Neutrophils # (1.3-7.7) k/uL Lymphocytes # (1.0-4.8) k/uL Monocytes # (0-1.0) k/uL Eosinophils # (0-0.7) k/uL Basophils # (0-0.2) k/uL PT 9.9 (9.0-12.0) sec INR 1.0 (<1.2) APTT 23.1 (22.0-30.0) sec Sodium (137-145) mmol/L Potassium (3.5-5.1) mmol/L Chloride (98-107) mmol/L Carbon Dioxide (22-30) mmol/L Anion Gap mmol/L BUN (9-20) mg/dL Creatinine (0.66-1.25) mg/dL Est GFR (CKD-EPI)AfAm (>60 ml/min/1.73 sqM) Est GFR (CKD-EPI)NonAf (>60 ml/min/1.73 sqM) Glucose (74-99) mg/dL Calcium (8.4-10.2) mg/dL Magnesium (1.6-2.3) mg/dL Total Bilirubin (0.2-1.3) mg/dL AST (17-59) U/L ALT (21-72) U/L Alkaline Phosphatase (38-126) U/L Total Creatine Kinase (55-170) U/L CK-MB (CK-2) (0.0-2.4) ng/mL CK-MB (CK-2) Rel Index Troponin I (0.000-0.034) ng/mL Total Protein (6.3-8.2) g/dL Albumin (3.5-5.0) g/dL Disposition Clinical Impression: Chest pain Disposition: ADMITTED IP TO THIS [facility] Condition: Stable Is patient prescribed a controlled substance at d/c from ED?: No Referrals: Darya Salamanca MD [Primary Care Provider] - 1-2 days Decision to Admit Reason: Admit from EC Decision Date: 04/18/18 Decision Time: 10:46
[2018-04-18 09:32] LABS: Basophils % (A) 0 %; Eosinophils # (A) 0.2 k/uL (0-0.7); Eosinophils % (A) 2 %; HCT 42.7 % (39.0-53.0); HGB 13.5 gm/dL (13.0-17.5); Lymphocytes # (A) 1.7 k/uL (1.0-4.8); Lymphocytes % (A) 16 %; MCH 29.5 pg (25.0-35.0); MCHC 31.6 g/dL (31.0-37.0); MCV 93.2 fL (80.0-100.0); Mean Platelet Volume 7.1; Monocytes # (A) 0.6 k/uL (0-1.0); Monocytes % (A) 6 %; Neutrophils # (A) 7.7 k/uL (1.3-7.7); Neutrophils % (A) 74 %; Platelet Count 239 k/uL (150-450); RBC 4.58 m/uL (4.30-5.90); RDW 13.6 % (11.5-15.5); WBC 10.4 k/uL (3.8-10.6)
[2018-04-18 09:39] LABS: ALT 45 U/L (21-72); AST 35 U/L (17-59); Albumin 4.3 g/dL (3.5-5.0); Alkaline Phosphatase 54 U/L (38-126); Anion Gap 9 mmol/L; Blood Urea Nitrogen 17 mg/dL (9-20); Calcium 9.6 mg/dL (8.4-10.2); Carbon Dioxide 25 mmol/L (22-30); Chloride 107 mmol/L (98-107); Glucose 109 mg/dL (74-99); Magnesium 1.8 mg/dL (1.6-2.3); Sodium 141 mmol/L (137-145); Total Protein 6.7 g/dL (6.3-8.2)
[2018-04-18 09:41] LABS: Partial Thromboplastin Time 23.1 sec (22.0-30.0); Prothrombin Time 9.9 sec (9.0-12.0)
[2018-04-18 10:04] LABS: Creatine Kinase 272 U/L (55-170)
--- NOTE | 2018-04-18 10:06 | XR ---
EXAMINATION TYPE: XR chest 2V DATE OF EXAM: 04/18/2018 COMPARISON: Prior chest x-ray 01/18/2018 HISTORY: Chest pain TECHNIQUE: Frontal and lateral views of the chest are obtained. FINDINGS: There is no focal air space opacity, pleural effusion, or pneumothorax seen. The cardiac silhouette size is within normal limits. The osseous structures are intact. There are overlying car diac leads. IMPRESSION: No acute cardiopulmonary process. Improvement in aeration as compared to prior exam.
[2018-04-18 10:16] LABS: Creatine Kinase MB 2.3 ng/mL (0.0-2.4); Troponin I <0.012 ng/mL (0.000-0.034)
[2018-04-18] MEDS ORDERED: NALOXONE 0.4 MG/ML 1 ML VIAL IV PRN (10:41)
[2018-04-18] MEDS ORDERED: ACETAMINOPHEN TAB 325 MG TAB PO PRN (10:41)
[2018-04-18] MEDS ORDERED: NITROGLYCERIN SL TABS 0.4 MG TAB SUBLINGUAL PRN (10:42)
[2018-04-18] MEDS ORDERED: ALPRAZolam 0.25 MG TAB PO PRN (13:20)
[2018-04-18] MEDS ORDERED: NICOTINE POLACRILEX 2 MG GUM BUCCAL PRN (13:20)
[2018-04-18] MEDS ORDERED: traMADol 50 MG TAB PO PRN (13:20)
--- NOTE | 2018-04-18 13:22 | P.HPIM ---
History of Present Illness H&P Date: 04/18/18 Chief Complaint: Chest tightness Patient is a 52 yo M a history of ST segment elevated myocardial infarction the left circumflex artery January, ischemic cardiomyopathy with ejection fraction 45-50 %, history of third-degree heart block, prediabetes, and central sleep apnea who presented to the ER after the onset of chest tightness during cardiac rehab. in the ER he underwent an extensive evaluation. His EKG showed T-wave inversion. Chest x-ray showed no acute process. His initial troponin was negative. He had already taken aspirin this morning. He states that his symptoms had resolved spontaneously in the ER. Arrangements were made for admission for chest pain observation. Patient seen and examined at bedside. He states that he was working at cardiac rehab. He finished his session. His heart rate had gone up to 150. He felt "not right". he called his who told him not to wait to go to the emergency department. After he arrived in the emergency department his unusual feeling went await and he was able to sleep. He states it felt similar to when he had his myocardial infarction in January. He reports chest tightness across the precordium associated with some shortness of breath, weakness, diaphoresis, and anxiety. He denied any nausea or vomiting, numbness tingling, lightheaded or dizziness. He felt as though his diaphoresis is likely secondary to working out at cardiac rehab. He follows with Dr. Bryant and had medication changes approximately one month ago when he stopped his beta danyell secondary to fatigue. He is still been taking his aspirin and Lipitor and blunt up. He has been working with Dr. Wyman regarding his sleep apnea but has been unable to tolerate CPAP. He therefore has not been using it. He has been taking Nicorette lozenge of the like to continue with the gum as an inpatient but has stopped smoking. He has been taking his medications as prescribed and has lost 29ish pounds since January. He denies any recent cough, cold, fever, flu, nausea, vomiting, diarrhea, or dysuria. He has not had any strokelike symptoms. Review of Systems Pertinent positives and negatives as discussed in HPI, a complete review of systems was performed and all other systems are negative. Past Medical History Past Medical History: [place] Infarction ([place]) Additional Past Medical History / Comment(s): Coronary artery disease with an inferior wall myocardial infarction, cardiogenic shock, tachycardia with cardiac ablation, central sleep apnea-does not tolerate device very well, occasional low back pain, L arm injury with surgery/limited ROM L hand Last Myocardial Infarction Date:: 01/17/18 History of Any Multi-Drug Resistant Organisms: None Reported Past Surgical History: Back Surgery, Cardiac Ablation, Heart Catheterization With Stent, Orthopedic Surgery Additional Past Surgical History / Comment(s): PCI with stent 01/2018, low back surgery, colonoscopies, L arm injury with surgery. Past Anesthesia/Blood Transfusion Reactions: No Reported Reaction Date of Last Stent Placement:: 01/17/18 Smoking Status: Former smoker Past Alcohol Use History: Occasional Past Drug Use History: None Reported Additional History: Lives with his , no assistive devices, currently undergoing cardiac rehab - Past Family History Brother(s) Family Medical History: Myocardial Infarction ([place]) Additional Family Medical History / Comment(s): in his 40s of throat cancer. Mother Family Medical History: Cancer, Coronary Artery Disease (CAD) Additional Family Medical History / Comment(s): Mother in her 80s of pancreatic cancer. Father Family Medical History: Cancer Additional Family Medical History / Comment(s): Father at age 54 yrs from mesothelioma. Medications and Allergies Home Medications Medication Instructions Recorded Confirmed Type Aspirin 81 mg PO DAILY #30 chew 01/20/18 04/18/18 Rx Atorvastatin [Lipitor] 80 mg PO HS #30 tab 01/20/18 04/18/18 Rx Nitroglycerin Sl Tabs [Nitrostat] 0.4 mg SUBLINGUAL Q5M PRN #25 tab 01/20/1802/28 Rx Ticagrelor [Brilinta] 90 mg PO BID #60 tab 01/20/18 04/18/18 Rx Allergies Allergy/AdvReac Type Severity Reaction Status Date / Time No Known Allergies Allergy Verified 04/18/18 10:08 Physical Exam Osteopathic Statement: *. No significant issues noted on an osteopathic structural exam other than those noted in the History and Physical/Consult. Vitals: Vital Signs Temp Pulse Resp BP Pulse Ox 04/18/18 10:15 76 16 112/80 98 04/18/18 09:13 97.9 F 83 20 124/83 96 Intake and Output 04/17/18 04/18/18 04/18/18 22:59 06:59 14:59 Other: Weight 92.986 kg General: non toxic, no distress, appears at stated age, normal weight Derm: no unusual rashes/lesions no unusual ecchymoses, warm, dry Head: atraumatic, normocephalic, symmetric Eyes: EOMI, no lid lag, anicteric sclera, pupils equal round reactive to light ENT: Nose and ears atraumatic, no thrush, no pharyngeal erythema Neck: No thyromegaly, no cervical lymphadenopathy, trachea midline, supple Mouth: no lip lesion, mucus membranes moist Cardiovascular: S1S2 reg, no murmur, positive posterior tibial pulse bilateral, no edema, capillary refill less than 2 seconds Lungs: CTA bilateral, no rhonchi, no rales , no accessory muscle use Abdominal: soft, nontender to palpation, no guarding, no appreciable organomegaly, normal bowel sounds Ext: no gross muscle atrophy, contractures of left hand digits 3/45, muscle strength 5 out of 5 in all 4 extremities grossy Neuro CN II-XI grossly intact, light touch intact all 4 extremities, finger to nose within normal limits Psych Alert, oriented, appropriate affect Results CBC & Chem 7: 04/18/18 09:23 04/18/18 09:23 Labs: Abnormal Lab Results - Last 24 Hours (Table) 04/18/18 04/18/18 Range/Units 09:23 09:23 Glucose 109 H (74-99) mg/dL Total Creatine Kinase 272 H (55-170) U/L Chest x-ray: report reviewed Thrombosis Risk Factor Assmnt - DVT/VTE Prophylaxis DVT/VTE Prophylaxis: Low risk, early ambulation encouraged - Choose All That Apply Any of the Below Risk Factors Present?: Yes Each Factor Represents 1 point: Age 41-60 years, Obesity (BMI >25) Other Risk Factors: No Other congenital or acquired thrombophilia - If yes, enter type in comment: No Thrombosis Risk Factor Assessment Total Risk Factor Score: 2 Thrombosis Risk Factor Assessment Level: Low Risk Assessment and Plan Assessment: Chest tightness, possible anginal equivalent -Troponin every 6 hours 3 -Aspirin -Cardiology consultation -Telemetry -Echocardiogram -When necessary nitro Atherosclerotic coronary artery disease with ischemic cardiomyopathy and ejection fraction 45-50% -Continue Brillenta, Lipitor, aspirin Tobacco abuse, in remission -Nicotine gum Central sleep apnea -Patient is noncompliant with CPAP and will not order at this point in time -Continue outpatient follow-up with Dr. Wyman Prediabetes - A 1C 6.3 in January - will recheck today. The patient is placed in observation with an anticipated less than 2 per night stay for evaluation of Chest tightness. Surrogate decision-maker: CODE STATUS:Full DVT prophylaxis: Early Ambulation Discussed with: Patient, ED physician Anticipated discharge date: 04/[address]: home A total of 55 minutes was spent on the care of this complex patient more than 50 % of the time was spent in counseling and care coordination.
--- NOTE | 2018-04-18 14:20 | P.CRDCN ---
History of Present Illness History of present illness: Mr. Hernandez is a pleasant 52-year-old male past medical history significant for coronary artery disease s/p STEMI 01/17, third degree AVB present at time of STEMI that resolved after angioplasty, hypertension, dyslipidemia, sleep apnea, chronic nicotine dependence quit 01/17/2018, chronic daily alcohol intake and paroxysmal atrial fibrillation s/p ablation. He follows with Dr. Bryant in the office. We have been asked to see him in consultation for chest pain. He states he went to cardiac rehabilitation today and exerted himself more than usual. This is the first time he has gotten his heart rate up to the 150 range. After exercising he felt generally fatigued and not well. He denies chest pain, shortness of breath, diaphoresis, nausea, vomiting, dizziness or palpitations. He drove around the parking lot after rehab to see if he would feel better. His symptoms persisted so he came to ED for evaluation. EKG reveals sinus mechanism with Chest x-ray reveals no acute cardiopulmonary process. Laboratory data reviewed, hemoglobin 13.5, platelets 239, sodium 141, potassium 5.0, magnesium 1.8, creatinine 0.95, cardiac enzymes negative 1. Initial CK 272. Current cardiac medications include Brilinta to 90 mg twice a day, atorvastatin 80 mg daily and aspirin 81 mg daily. He was recently taken off Lopressor in the office secondary to increased fatigue. He states he missed his dose of Brilinta yesterday morning but did take his p.m. dose. Echocardiogram performed in the office 02/2018 reveals left ventricular systolic function mildly impaired with ejection fraction 45-50%. He also underwent a low level treadmill stress test prior to starting cardiac rehab that was normal. Review of Systems At the time of my exam: CONSTITUTIONAL: Denies fever. Denies chills. Complains of generalized fatigue. EYES: Denies blurred vision. Denies vision changes. Denies eye pain. EARS, NOSE, MOUTH & THROAT: Denies headache. Denies sore throat. Denies ear pain. CARDIOVASCULAR: Denies chest pain. Denies shortness of breath. Denies orthopnea. Denies PND. Denies palpitations. RESPIRATORY: Denies cough. GASTROINTESTINAL: Denies abdominal pain. Denies diarrhea. Denies constipation. Denies nausea. Denies vomiting. MUSCULOSKELETAL: Denies myalgias. INTEGUMENTARY: Denies pruitis. Denies rash. NEUROLOGIC: Denies numbness. Denies tingling. Denies weakness. PSYCHIATRIC: Denies anxiety. Denies depression. ENDOCRINE: Denies fatigue. Denies weight change. Denies polydipsia. Denies polyurina. GENITOURINARY: Denies burning, hematuria or urgency with micturation. HEMATOLOGIC: Denies history of anemia. Denies bleeding. Past Medical History Past Medical History: Myocardial Infarction ([place]) Additional Past Medical History / Comment(s): Coronary artery disease with an inferior wall myocardial infarction, cardiogenic shock, tachycardia with cardiac ablation, central sleep apnea-does not tolerate device very well, occasional low back pain, L arm injury with surgery/limited ROM L hand Last Myocardial Infarction Date:: 01/17/18 History of Any Multi-Drug Resistant Organisms: None Reported Past Surgical History: Back Surgery, Cardiac Ablation, Heart Catheterization With Stent, Orthopedic Surgery Additional Past Surgical History / Comment(s): PCI with stent 01/2018, low back surgery, colonoscopies, L arm injury with surgery. Past Anesthesia/Blood Transfusion Reactions: No Reported Reaction Date of Last Stent Placement:: 01/17/18 Smoking Status: Former smoker Past Alcohol Use History: Occasional Past Drug Use History: None Reported - Past Family History Brother(s) Family Medical History: Myocardial Infarction ([place]) Additional Family Medical History / Comment(s): in his 40s of throat cancer. Mother Family Medical History: Cancer, Coronary Artery Disease (CAD) Additional Family Medical History / Comment(s): Mother in her 80s of pancreatic cancer. Father Family Medical History: Cancer Additional Family Medical History / Comment(s): Father at age 54 yrs from mesothelioma. Medications and Allergies Home Medications Medication Instructions Recorded Confirmed Type Aspirin 81 mg PO DAILY #30 chew 01/20/18 04/18/18 Rx Atorvastatin [Lipitor] 80 mg PO HS #30 tab 01/20/18 04/18/18 Rx Nitroglycerin Sl Tabs [Nitrostat] 0.4 mg SUBLINGUAL Q5M PRN #25 tab 01/20/1802/28 Rx Ticagrelor [Brilinta] 90 mg PO BID #60 tab 01/20/18 04/18/18 Rx Allergies Allergy/AdvReac Type Severity Reaction Status Date / Time No Known Allergies Allergy Verified 04/18/18 10:08 Physical Exam Vitals: Vital Signs Temp Pulse Resp BP Pulse Ox 04/18/18 10:15 76 16 112/80 98 04/18/18 09:13 97.9 F 83 20 124/83 96 Intake and Output 04/17/18 04/18/18 04/18/18 22:59 06:59 14:59 Other: Weight 92.986 kg Blood pressure 112/80 heart rate 76 afebrile maintaining oxygen saturation on room air GENERAL: This is a 52-year-old male in no apparent distress at the time of my examination. HEENT: Head is atraumatic, normocephalic. Pupils are equal, round. Sclerae anicteric. Conjunctivae are clear. Mucous membranes of the mouth are moist. Neck is supple. There is no jugular venous distention. No carotid bruit is heard. LUNGS: Clear to auscultation no wheezes, rales or rhonchi. No chest wall tenderness is noted on palpation or with deep breathing. HEART: Regular rate and rhythm without murmurs, rubs or gallops. S1 and S2 heard. ABDOMEN: Soft, nontender. Bowel sounds are heard. No organomegaly noted. EXTREMITIES: No evidence of peripheral edema and no calf tenderness noted. VASCULAR: Radial and dorsalis pedis pulses palpated, no evidence of clubbing. NEUROLOGIC: Patient is awake, alert and oriented x3. Results 04/18/18 09:23 04/18/18 09:23 Cardiac Enzymes 04/18/18 04/18/18 Range/Units 09:23 09:23 AST 35 (17-59) U/L CK-MB (CK-2) 2.3 (0.0-2.4) ng/mL Troponin I <0.012 (0.000-0.034) ng/mL Coagulation 04/18/18 Range/Units 09:23 PT 9.9 (9.0-12.0) sec APTT 23.1 (22.0-30.0) sec CBC 04/18/18 Range/Units 09:23 WBC 10.4 (3.8-10.6) k/uL RBC 4.58 (4.30-5.90) m/uL Hgb 13.5 (13.0-17.5) gm/dL Hct 42.7 (39.0-53.0) % Plt Count 239 (150-450) k/uL Comprehensive Metabolic Panel 04/18/18 Range/Units 09:23 Sodium 141 (137-145) mmol/L Potassium 5.0 (3.5-5.1) mmol/L Chloride 107 (98-107) mmol/L Carbon Dioxide 25 (22-30) mmol/L BUN 17 (9-20) mg/dL Creatinine 0.95 (0.66-1.25) mg/dL Glucose 109 H (74-99) mg/dL Calcium 9.6 (8.4-10.2) mg/dL AST 35 (17-59) U/L ALT 45 (21-72) U/L Alkaline Phosphatase 54 (38-126) U/L Total Protein 6.7 (6.3-8.2) g/dL Albumin 4.3 (3.5-5.0) g/dL Current Medications Generic Name Dose Route Start Last Admin Trade Name Freq PRN Reason Stop Dose Admin Acetaminophen 650 mg 04/18/18 10:41 Tylenol Tab PO Q6HR PRN Mild Pain or Fever > 100.5 Alprazolam 0.25 mg 04/18/18 13:20 Xanax PO Q6HR PRN Anxiety Aspirin 81 mg 04/19/18 09:00 Aspirin PO DAILY [facility] Atorvastatin Calcium 80 mg 04/18/18 21:00 Lipitor PO HS [facility] Naloxone HCl 0.2 mg 04/18/18 10:41 Narcan IV Q2M PRN Opioid Reversal Nicotine Polacrilex 2 mg 04/18/18 13:20 Nicorette Gum BUCCAL Q2HR PRN Nicotine Cravings Nitroglycerin 0.4 mg 04/18/18 10:42 Nitrostat SUBLINGUAL Q5M PRN Chest Pain Ticagrelor 90 mg 04/18/18 21:00 Brilinta PO BID [facility] Tramadol HCl 50 mg 04/18/18 13:20 Ultram PO Q6H PRN Moderate Pain Intake and Output 04/17/18 04/18/18 04/18/18 22:59 06:59 14:59 Other: Weight 92.986 kg Patient Weight 04/19/18 06:59 Weight 92.986 kg 04/18/18 09:23 04/18/18 09:23 Assessment and Plan Assessment: ASSESSMENT Chest pain, atypical with generalized weakness and fatigue status post increase in activity at cardiac rehabilitation today History of coronary artery disease status post angioplasty of circumflex artery January 2018 Dyslipidemia Ischemic cardiomyopathy, most recent ejection fraction 45-50% History of paroxysmal atrial fibrillation status post ablation PLAN Obtain limited echocardiogram to assess LV function. Continue to obtain serial cardiac enzymes to rule out an acute coronary event. Repeat EKG. Ongoing telemetry monitoring to assess for an acute arrhythmia. Further recommendations to follow based upon clinical course. Thank you kindly for this consultation. Nurse Practitioner note has been reviewed, I agree with a documented findings and plan of care. Patient was seen and examined.
[2018-04-18 15:58] LABS: Creatine Kinase MB 2.2 ng/mL (0.0-2.4); Troponin I 0.012 ng/mL (0.000-0.034)
[2018-04-18] MEDS: TICAGRELOR 90 MG TAB PO SCH (20:19)
[2018-04-18] MEDS ORDERED: ATORVASTATIN 80 MG TAB PO SCH (21:00)
[2018-04-18 22:19] LABS: Troponin I 0.015 ng/mL (0.000-0.034)
[2018-04-19 00:07] VITALS: RESP 16
[2018-04-19 03:31] LABS: Cholesterol 89 mg/dL (<200); HDL Cholesterol 47 mg/dL (40-60); LDL Cholesterol,Calculated 19 mg/dL (0-99); Triglycerides 113 mg/dL (<150)
[2018-04-19 07:41] VITALS: BP 108/69; PULSE 69; TEMP 98.4
[2018-04-19] MEDS ORDERED: ASPIRIN 81 MG PO SCH (09:00)
--- NOTE | 2018-04-19 09:21 | P.PN ---
Subjective Mr. Hernandez is seen and examined resting comfortably in bed. He denies any further symptoms of chest discomfort. Cardiac enzymes negative x3, blood pressure 108/ 69 heart rate 69 afebrile. Preliminary echo report shows no change in EF from prior echo in the office. He also denies shortness of breath, palpitations, nausea, vomiting, diaphoresis, PND or orhopnea. Repeat EKG shows no changes suggestive of an acute event and telemetry tracings have been unremarkable. Objective - Vital Signs Vital signs: Vital Signs Temp 98.4 F 04/19/18 07:40 Pulse 69 04/19/18 07:40 Resp 16 04/19/18 07:40 BP 108/69 04/19/18 07:40 Pulse Ox 98 04/19/18 07:40 Intake & Output 04/18/18 04/19/18 04/19/18 18:59 06:59 18:59 Intake Total 118 Balance 118 Weight 95.7 kg Intake: Oral 118 Other: Voiding Method Toilet Toilet # Voids 1 - Exam GENERAL: Well-appearing, well-nourished and in no acute distress. NECK: Supple without JVD or thyromegaly. LUNGS: Breath sounds clear to auscultation bilaterally. Respiration equal and unlabored. No wheezes, rales or rhonchi. HEART: Regular rate and rhythm without murmurs, rubs or gallops. S1 and S2 heard. EXTREMITIES: Normal range of motion, no edema. No clubbing or cyanosis. Peripheral pulses intact. - Labs CBC & Chem 7: 04/18/18 09:23 04/18/18 09:23 Labs: Abnormal Lab Results - Last 24 Hours (Table) 04/18/18 04/18/18 04/18/18 Range/Units 09:23 09:23 15:14 Glucose 109 H (74-99) mg/dL Total Creatine Kinase 272 H 221 H (55-170) U/L 04/18/18 Range/Units 21:23 Glucose (74-99) mg/dL Total Creatine Kinase 192 H (55-170) U/L Assessment and Plan Assessment: ASSESSMENT Chest pain, atypical with generalized weakness and fatigue status post increase in activity at cardiac rehabilitation today History of coronary artery disease status post angioplasty of circumflex artery January 2018 Dyslipidemia Ischemic cardiomyopathy, most recent ejection fraction 45-50% History of paroxysmal atrial fibrillation status post ablation PLAN Stable from a cardiac perspective. Increase activity and ambulation in the halls. If no further symptoms, he can be discharged home. Follow up with Dr. Bryant in 2 weeks. Nurse Practitioner note has been reviewed, I agree with a documented findings and plan of care. Patient was seen and examined.
[2018-04-19] MEDS: TICAGRELOR 90 MG TAB PO SCH (09:39)
--- NOTE | 2018-04-19 10:41 | P.DS ---
Providers Date of admission: 04/18/18 10:41 Expected date of discharge: 04/19/18 Attending physician: Tosha Hummel DO Consults: 04/18/18 10:42 Consult Physician Routine Consulting Provider: Luna Dodge Consult Reason/Comments: Chest pain Do you want consulting provider notified?: Yes Primary care physician: Darya Salamanca Hospital Course: Discharge Diagnosis: Chest pain Ischemic cardiomyopathy Arthroscleroic coronary artery disease Nicotine dependence - Using GUM not smoking Central sleep apnea Prediabetes - last A1C was in January would benefit from repeat soon Hospital Course: Patient is a 52 yo M a history of ST segment elevated myocardial infarction the left circumflex artery January, ischemic cardiomyopathy with ejection fraction 45-50 %, history of third-degree heart block, prediabetes, and central sleep apnea who presented to the ER after the onset of chest tightness during cardiac rehab. In the ER he underwent an extensive evaluation. His EKG showed T-wave inversion. Chest x-ray showed no acute process. His initial troponin was negative. He had already taken aspirin this morning. He states that his symptoms had resolved spontaneously in the ER. Arrangements were made for admission for chest pain observation. Troponin remained negative. He was seen by cardiology who recommended echocardiogram. He had no abnormalities on telemetry overnight. He was determined stable for discharge home. His repeat cholesterol profile showed an LDL of 19 HDL 47. We have decreased his Lipitor from 80 mg daily to 40 mg daily. He also would benefit from repeat hemoglobin A1c testing however it is been slightly less than 3 months and therefore we are unable to perform testing at this time. He will follow-up with Dr. Valeria Lazaro in 1-[address] Bryant in 2 weeks. Patient seen and examined at bedside. No continued chest tightness, no nausea, no vomiting, no lightheadedness Vital signs reviewed and stable. General: non toxic, no distress, appears at stated age Derm: warm, dry Head: atraumatic, normocephalic, symmetric Eyes: EOMI, no lid lag, anicteric sclera Mouth: no lip lesion, mucus membranes moist Cardiovascular: S1S2 reg, no murmur, positive posterior tibial pulse bilateral, Lungs: CTA bilateral, no rhonchi, no rales , no accessory muscle use Abdominal: soft, nontender to palpation, no guarding, no appreciable organomegaly Ext: no gross muscle atrophy, no edema, no contractures Neuro: CN II-XI grossly intact, no focal neuro deficits Psych: Alert, oriented, appropriate affect A total of 20 minutes of time were spent preparing this complex discharge summary . Patient Condition at Discharge: Stable Plan - Discharge Summary Discharge Rx Participant: No New Discharge Prescriptions: New Atorvastatin [Lipitor] 40 mg PO HS #30 tablet Continue Aspirin 81 mg PO DAILY #30 chew Nitroglycerin Sl Tabs [Nitrostat] 0.4 mg SUBLINGUAL Q5M PRN #25 tab PRN Reason: Chest Pain Ticagrelor [Brilinta] 90 mg PO BID #60 tab Discontinued Atorvastatin [Lipitor] 80 mg PO HS #30 tab Discharge Medication List Aspirin 81 mg PO DAILY #30 chew 01/20/18 [Rx] Nitroglycerin Sl Tabs [Nitrostat] 0.4 mg SUBLINGUAL Q5M PRN #25 tab 01/20/18 [Rx ] Ticagrelor [Brilinta] 90 mg PO BID #60 tab 01/20/18 [Rx] Atorvastatin [Lipitor] 40 mg PO HS #30 tablet 04/19/18 [Rx] Follow up Appointment(s)/Referral(s): Devin Bryant MD [STAFF PHYSICIAN] - 05/10/18 2:15 pm Darya Salamanca MD [Primary Care Provider] - 1-2 days Patient Instructions/Handouts: Chest Pain (DC) Activity/Diet/Wound Care/Special Instructions: heart healthy diet, activity as tolerated Discharge Disposition: HOME SELF-CARE
--- NOTE | 2018-04-19 13:09 | ECHOF ---
Referral Reason:cp, recent stemi MEASUREMENTS -------- HEIGHT: 175.3 cm WEIGHT: 93.0 kg BP: 112/80 IVSd: 1.0 cm (0.6 - 1.1) LVIDd: 4.5 cm (3.9 - 5.3) LVPWd: 1.1 cm (0.6 - 1.1) IVSs: 1.3 cm LVIDs: 3.5 cm LVPWs: 1.2 cm LAESV Index (A-L): 18.46 ml/m Ao Diam: 3.1 cm (2.0 - 3.7) AV Cusp: 2.1 cm (1.5 - 2.6) LA Diam: 3.4 cm (2.7 - 3.8) EPSS: 0.5 cm MV EF SLOPE: 129.61 mm/s (70 - 150) MV EXCURSION: 2.36 cm (> 18.000) FINDINGS -------- Sinus rhythm. This was a technically good study. Limited Study for assessment of left ventricular function. The left ventricular size is normal. Left ventricular wall thickness is normal. Overall left vent ricular systolic function is low-normal with, an EF between 50 - 55 %. The right ventricle is normal in size and function. Normal LA size by volume 22+/-6 ml/m2. The right atrium is normal in size. CONCLUSIONS -------- 1. Sinus rhythm. 2. This was a technically good study. 3. Limited Study for assessment of left ventricular function. 4. The left ventricular size is normal. 5. Left ventricular wall thickness is normal. 6. Overall left ventricular systolic function is low-normal with, an EF between 50 - 55 %. CLINICAL NURSING MANAGER: Lincoln Candelaria [facility]
== END 2018-04-19 10:50 | disposition home or self-care (01) ==
LOC: EC 09:00 → 3OBS 10:41
PROVIDERS: ADMIT Internal Medicine; ATTEND Internal Medicine
DX: R07.89 Other chest pain (principal); I25.10 Atherosclerotic heart disease of native coronary artery without angina pectoris; I11.9 Hypertensive heart disease without heart failure; I25.5 Ischemic cardiomyopathy; R73.03 Prediabetes; E66.9 Obesity, unspecified; Z68.30 Body mass index [BMI] 30.0-30.9, adult; E78.5 Hyperlipidemia, unspecified; F41.9 Anxiety disorder, unspecified; R53.1 Weakness; G47.31 Primary central sleep apnea; G47.33 Obstructive sleep apnea (adult) (pediatric); Z99.89 Dependence on other enabling machines and devices; Z91.19 Patient's noncompliance with other medical treatment and regimen; M54.5 Low back pain; I25.2 Old myocardial infarction; F17.290 Nicotine dependence, other tobacco product, uncomplicated; Z95.5 Presence of coronary angioplasty implant and graft; Z79.82 Long term (current) use of aspirin; Z79.899 Other long term (current) drug therapy; Z79.02 Long term (current) use of antithrombotics/antiplatelets; Z82.49 Family history of ischemic heart disease and other diseases of the circulatory system; Z80.8 Family history of malignant neoplasm of other organs or systems; Z80.0 Family history of malignant neoplasm of digestive organs; Z80.1 Family history of malignant neoplasm of trachea, bronchus and lung
CPT/HCPCS: 99285 ×2; 36415; 93005; 93308; 80061; 80053; 82550; 82553; 83735; 84484; 85025; 85610; 85730; 71046; G0378 ×2

== ENCOUNTER → 2018-06-23 | Outpatient (CLI) | payer BC ==
--- NOTE | 2018-06-23 08:50 | CT ---
EXAMINATION TYPE: CT abdomen pelvis w con DATE OF EXAM: 06/23/2018 COMPARISON: None HISTORY: LLQ pain CT DLP: 1387 mGycm Automated exposure control for dose reduction was used. TECHNIQUE: Helical acquisition of images was performed from the lung bases through the pelvis. CONTRAST: Performed with Oral Contrast and with IV Contrast, patient injected with 100 mL of Isovue 300. FINDINGS: LUNG BASES: There is scattered bibasilar subsegmental atelectasis. LIVER/GB: Focal geographic area of hypoattenuation is seen in segment IVb near the fissure for the fa lciform ligament. This most commonly relates to focal fatty infiltration. No other focal hepatic lesi ons are seen. No intrahepatic biliary ductal dilatation. Gallbladder is unremarkable with no cholelit hiasis. PANCREAS: No significant abnormality is seen. SPLEEN: No significant abnormality is seen. ADRENALS: No significant abnormality is seen. KIDNEYS: Kidneys enhance and excrete symmetrically. No hydronephrosis. No gross evidence of nephrolit hiasis. FREE AIR: No free air is visualized. ADENOPATHY: No greater than 1 cm short axis lymph nodes are seen within the abdomen or pelvis. REPRODUCTIVE ORGANS: No significant abnormality is seen URINARY BLADDER: No significant abnormality is seen. OSSEOUS STRUCTURES: Nonspecific patchy sclerosis is seen of the left iliac bone. Postsurgical change s of the lower spine are noted with mild degenerative changes of the remainder of the spine. Surgical ly fixated grade 2 anterolisthesis of L4 on L5. BOWEL: Appendix is within normal limits of size. No dilated large or small bowel is seen, however th ere are few loops of prominent left mid abdomen and lower quadrant small bowel containing bowel wall thickening such as on image 44 and 38. Findings are most convincing on coronal images 40 through 48. Mild enteritis is a possibility. No significant surrounding inflammatory fat stranding. IMPRESSION: LEFT MID ABDOMINAL AND LEFT LOWER QUADRANT PROMINENT LOOPS OF SMALL BOWEL WITH BOWEL WALL THICKENING, MOST COMMONLY RELATING TO MILD INFLAMMATORY OR INFECTIOUS ENTERITIS. NO COMPLICATING PNEUMOPERITONEU M OR INTRA-ABDOMINAL ABSCESS.
== END | disposition home or self-care (01) ==
LOC: RADCTMAIN 06:38
PROVIDERS: ATTEND Family Medicine
DX: K63.89 Other specified diseases of intestine (principal)
CPT/HCPCS: 74177; Q9967

== ENCOUNTER 2018-08-16 11:06 | Emergency (ER) | payer BC ==
[2018-08-16 11:15] VITALS: RESP 18
[2018-08-16] MEDS ORDERED: SODIUM CHLORIDE 0.9% 1,000 ML IV STA (11:56)
[2018-08-16] MEDS ORDERED: DICYCLOMINE 10 MG/ML 2 ML AMP IM STA (11:56)
--- NOTE | 2018-08-16 12:05 | ED ---
General Adult HPI - General Chief complaint: Abdominal Pain Stated complaint: abdominal pain Time Seen by Provider: 08/16/18 11:17 Source: patient, RN notes reviewed Mode of arrival: ambulatory Limitations: no limitations - History of Present Illness Initial comments: Patient is a pleasant 52-year-old male presenting to the emergency Department with abdominal discomfort. Patient has had intermittent symptoms over the past 5 months. Patient did have computed tomography scan done a few months ago. Patient has intermittent diarrhea approximately once daily. Discomfort is left lower abdomen. Patient was told him his previous computed tomography scan that there was some inflammation. No fevers. No nausea vomiting. Patient believes he may have some occasional mucus in the stool. No bloody stools.Please use medication as discussed. Please follow-up with family doctor in the next 2 days of symptoms have not improved. Please return to emergency room if the symptoms increase or worsen or for any other concerns. Did receive steroids and antibiotics near the onset back in February that seemed to improve his symptoms however not completely resolved. - Related Data Home Medications Medication Instructions Recorded Confirmed Clopidogrel [Plavix] 75 mg PO DAILY 08/16/18 08/16/18 Nicotine Polacrilex [Nicorette] 2 mg BUCCAL Q4H PRN 08/16/18 08/16/18 Previous Rx's Medication Instructions Recorded Aspirin 81 mg PO DAILY #30 chew 01/20/18 Nitroglycerin Sl Tabs [Nitrostat] 0.4 mg SUBLINGUAL Q5M PRN #25 tab 01/20/18 Atorvastatin [Lipitor] 40 mg PO HS #30 tablet 04/19/18 Amoxic-Pot Clav 875-125Mg 1 tab PO Q12HR #20 tablet 08/16/18 [Augmentin 875-125] Dicyclomine [Bentyl] 20 mg PO QID PRN #20 tablet 08/16/18 methylPREDNISolone Dose Pack 24 mg PO DAILY #1 tab 08/16/18 [Medrol Dose Pack] Allergies Allergy/AdvReac Type Severity Reaction Status Date / Time No Known Allergies Allergy Verified 08/16/18 12:12 Review of Systems ROS Statement: Those systems with pertinent positive or pertinent negative responses have been documented in the HPI. ROS Other: All systems not noted in ROS Statement are negative. Constitutional: Denies: fever Eyes: Denies: eye pain ENT: Denies: ear pain Respiratory: Denies: cough Cardiovascular: Denies: chest pain Endocrine: Denies: fatigue Gastrointestinal: Reports: abdominal pain, diarrhea. Denies: nausea, vomiting Genitourinary: Denies: dysuria Musculoskeletal: Denies: back pain Skin: Denies: rash Neurological: Denies: weakness Past Medical History Past Medical History: Myocardial Infarction ([place]), Sleep Apnea/CPAP/BIPAP Additional Past Medical History / Comment(s): Coronary artery disease with an inferior wall myocardial infarction, cardiogenic shock, tachycardia with cardiac ablation, central sleep apnea-does not tolerate device very well, occasional low back pain, L arm injury with surgery/limited ROM L hand Last Myocardial Infarction Date:: 01/17/18 History of Any Multi-Drug Resistant Organisms: None Reported Past Surgical History: Back Surgery, Cardiac Ablation, Heart Catheterization With Stent, Orthopedic Surgery Additional Past Surgical History / Comment(s): PCI with stent 01/2018, low back surgery, colonoscopies, L arm injury with surgery. Past Anesthesia/Blood Transfusion Reactions: No Reported Reaction Date of Last Stent Placement:: 01/17/18 Past Psychological History: No Psychological Hx Reported Smoking Status: Former smoker Past Alcohol Use History: Occasional Past Drug Use History: None Reported - Past Family History Brother(s) Family Medical History: Myocardial Infarction ([place]) Additional Family Medical History / Comment(s): in his 40s of throat cancer. Mother Family Medical History: Cancer, Coronary Artery Disease (CAD) Additional Family Medical History / Comment(s): Mother in her 80s of pancreatic cancer. Father Family Medical History: Cancer Additional Family Medical History / Comment(s): Father at age 54 yrs from mesothelioma. General Exam Limitations: no limitations General appearance: alert, in no apparent distress Head exam: Present: atraumatic Eye exam: Present: normal appearance, PERRL ENT exam: Present: normal oropharynx Neck exam: Present: normal inspection Respiratory exam: Present: normal lung sounds bilaterally Cardiovascular Exam: Present: regular rate, normal rhythm Expanded Peripheral pulses: 2+: Dorsalis Pedis (R), Dorsalis Pedis (L) GI/Abdominal exam: Present: soft, tenderness (Mild to moderate tenderness left lower quadrant), normal bowel sounds. Absent: distended, guarding, rebound, rigid, pulsatile mass Extremities exam: Present: normal inspection. Absent: pedal edema, calf tenderness Neurological exam: Present: alert Psychiatric exam: Present: normal affect, normal mood Skin exam: Present: normal color Course Vital Signs 08/16/18 11:11 Temperature 98.7 F Pulse Rate 93 Respiratory 18 Rate Blood Pressure 132/90 O2 Sat by Pulse 97 Oximetry Medical Decision Making - Medical Decision Making Patient reevaluated and resting comfortably in bed. Patient feels much better following Bentyl. Patient updated on results and need for follow-up. - Lab Data Result diagrams: 08/16/18 12:24 08/16/18 12:24 Lab Results 08/16/18 08/16/18 08/16/18 Range/Units 12:24 12:24 12:24 WBC 7.9 (3.8-10.6) k/uL RBC 4.44 (4.30-5.90) m/uL Hgb 14.0 (13.0-17.5) gm/dL Hct 42.0 (39.0-53.0) % MCV 94.6 (80.0-100.0) fL MCH 31.6 (25.0-35.0) pg MCHC 33.4 (31.0-37.0) g/dL RDW 13.1 (11.5-15.5) % Plt Count 197 (150-450) k/uL Neutrophils % 86 % Lymphocytes % 9 % Monocytes % 2 % Eosinophils % 2 % Basophils % 0 % Neutrophils # 6.8 (1.3-7.7) k/uL Lymphocytes # 0.7 L (1.0-4.8) k/uL Monocytes # 0.2 (0-1.0) k/uL Eosinophils # 0.2 (0-0.7) k/uL Basophils # 0.0 (0-0.2) k/uL PT 9.6 (9.0-12.0) sec INR 1.0 (<1.2) APTT 22.3 (22.0-30.0) sec Sodium 138 (137-145) mmol/L Potassium 4.5 (3.5-5.1) mmol/L Chloride 108 H (98-107) mmol/L Carbon Dioxide 21 L (22-30) mmol/L Anion Gap 9 mmol/L BUN 20 (9-20) mg/dL Creatinine 0.93 (0.66-1.25) mg/dL Est GFR (CKD-EPI)AfAm >90 (>60 ml/min/1.73 sqM) Est GFR (CKD-EPI)NonAf >90 (>60 ml/min/1.73 sqM) Glucose 98 (74-99) mg/dL Calcium 8.9 (8.4-10.2) mg/dL Total Bilirubin 1.0 (0.2-1.3) mg/dL AST 32 (17-59) U/L ALT 44 (21-72) U/L Alkaline Phosphatase 52 (38-126) U/L Total Protein 6.8 (6.3-8.2) g/dL Albumin 4.1 (3.5-5.0) g/dL Amylase 50 (30-110) U/L Lipase 53 (23-300) U/L - Radiology Data Radiology results: report reviewed (Computed tomography scan abdomen and pelvis does show some small intestine wall thickening and distention.) Disposition Clinical Impression: Abdominal pain Disposition: HOME SELF-CARE Condition: Stable Instructions: Abdominal Pain (ED) Additional Instructions: Please follow-up with primary care physician as well as gastroenterology. Consider endoscopy. Return for increased pain, fever, vomiting, worsening or changing symptoms or other concerns. Prescriptions: Amoxic-Pot Clav 875-125Mg [Augmentin 875-125] 1 tab PO Q12HR #20 tablet Dicyclomine [Bentyl] 20 mg PO QID PRN #20 tablet PRN Reason: Pain methylPREDNISolone Dose Pack [Medrol Dose Pack] 24 mg PO DAILY #1 tab Is patient prescribed a controlled substance at d/c from ED?: No Referrals: Darya Salamanca MD [Primary Care Provider] - 1-2 days Time of Disposition: 13:41
[2018-08-16 12:49] LABS: Basophils % (A) 0 %; Eosinophils # (A) 0.2 k/uL (0-0.7); Eosinophils % (A) 2 %; Lymphocytes # (A) 0.7 k/uL (1.0-4.8); Lymphocytes % (A) 9 %; MCH 31.6 pg (25.0-35.0); MCHC 33.4 g/dL (31.0-37.0); MCV 94.6 fL (80.0-100.0); Mean Platelet Volume 7.2; Monocytes # (A) 0.2 k/uL (0-1.0); Monocytes % (A) 2 %; Neutrophils # (A) 6.8 k/uL (1.3-7.7); Neutrophils % (A) 86 %; Platelet Count 197 k/uL (150-450); RBC 4.44 m/uL (4.30-5.90); RDW 13.1 % (11.5-15.5); WBC 7.9 k/uL (3.8-10.6)
[2018-08-16 12:57] LABS: Partial Thromboplastin Time 22.3 sec (22.0-30.0); Prothrombin Time 9.6 sec (9.0-12.0)
[2018-08-16 13:05] LABS: ALT 44 U/L (21-72); AST 32 U/L (17-59); Albumin 4.1 g/dL (3.5-5.0); Alkaline Phosphatase 52 U/L (38-126); Amylase 50 U/L (30-110); Anion Gap 9 mmol/L; Blood Urea Nitrogen 20 mg/dL (9-20); Calcium 8.9 mg/dL (8.4-10.2); Carbon Dioxide 21 mmol/L (22-30); Chloride 108 mmol/L (98-107); Glucose 98 mg/dL (74-99); Lipase 53 U/L (23-300); Potassium 4.5 mmol/L (3.5-5.1); Sodium 138 mmol/L (137-145); Total Protein 6.8 g/dL (6.3-8.2)
--- NOTE | 2018-08-16 13:15 | CT ---
EXAMINATION TYPE: CT abdomen pelvis w con DATE OF EXAM: 08/16/2018 COMPARISON: 06/23/2018 HISTORY: Pain, bloating, diarrhea CT DLP: 1134.2 mGycm CONTRAST: CT scan of the abdomen and pelvis is performed without Oral Contrast and with IV Contrast, patient in jected with 100 mL of Isovue 300. FINDINGS: LUNG BASES-: No visible nodule. No infiltrate. LIVER/GB: No calcified gallstones. No space occupying hepatic lesion. Biliary tree is of normal ca liber. PANCREAS: No inflammation. No distinct mass. SPLEEN: No splenic enlargement. No lesion seen. ADRENALS: No nodule. No thickening. KIDNEYS/BLADDER: No hydronephrosis. No nephrolithiasis. No distinct renal mass. Urinary bladder g rossly unremarkable. BOWEL: Normal appendix. Persistent distention of small bowel with wall thickening noted is felt to re flect infectious or inflammatory enteritis. No evidence of bowel perforation or abscess. Visualized c olon appears to be of normal caliber. GENITAL ORGANS: No gross abnormality. LYMPH NODES: No greater than 1cm abdominal or pelvic lymph nodes are appreciated. AORTA: No significant abnormality. OSSEOUS STRUCTURES: No significant abnormality is seen. OTHER: No significant additional abnormality is seen. IMPRESSION: 1. Correlate for nonspecific small bowel enteritis.
[2018-08-16 14:08] VITALS: BP 133/88; PULSE 86; TEMP 99
== END 2018-08-16 14:07 | disposition home or self-care (01) ==
LOC: EC 11:06
DX: R10.32 Left lower quadrant pain (principal); I25.10 Atherosclerotic heart disease of native coronary artery without angina pectoris; I25.2 Old myocardial infarction; G47.31 Primary central sleep apnea; Z99.89 Dependence on other enabling machines and devices; Z87.891 Personal history of nicotine dependence; Z79.01 Long term (current) use of anticoagulants; Z95.5 Presence of coronary angioplasty implant and graft
CPT/HCPCS: 36415; 80053; 82150; 83690; 85025; 85610; 85730; 74177; 99284; 96360; 96361; 96372; J0500; Q9967

== ENCOUNTER 2019-02-13 02:17 | Observation (INO) | payer BC ==
[2019-02-13] MEDS ORDERED: HYDROmorphone 1 MG/ML 1 ML SYRINGE IVP STA ×2 (03:12→07:22)
--- NOTE | 2019-02-13 03:18 | ED ---
Abdominal Pain HPI - General Source: patient Mode of arrival: ambulatory Limitations: no limitations - History of Present Illness MD Complaint: abdominal pain -: hour(s) Location: RUQ Radiation: none Migration to: no migration Severity: severe Quality: stabbing Consistency: colicky Improves With: nothing Worsens With: nothing Associated Symptoms: denies other symptoms <Brian Luna - Last Filed: 02/13/19 07:48> <Jose Ly - Last Filed: 02/13/19 10:16> - General Chief Complaint: Abdominal Pain Stated Complaint: Abd pain Time Seen by Provider: 02/13/19 02:46 - History of Present Illness Initial Comments: This patient is a 53-year-old man who presents to be evaluated for right upper quadrant pain that started around 8 PM tonight. Patient denies any trauma or any inciting factors. He had eaten around 6 PM, having hot dogs. Patient states that the pain has continued and therefore he wanted to be evaluated. He describes it as varying in intensity but never completely going away. It is currently severe. He describes as sharp. He has not noted any worsening or relieving factors. He is not having any accompanying symptoms, including no nausea or vomiting, change in bowel movements, change in urination, fever or chills. No radiation. On the review of systems, the patient states he did have dark urine once yesterday but that had resolved. (Brian Luna) - Related Data Previous Rx's Medication Instructions Recorded Aspirin 81 mg PO DAILY #30 chew 01/20/18 Atorvastatin [Lipitor] 40 mg PO HS #30 tablet 04/19/18 Allergies Allergy/AdvReac Type Severity Reaction Status Date / Time No Known Allergies Allergy Verified 02/13/19 07:34 Review of Systems ROS Other: All systems not noted in ROS Statement are negative. Constitutional: Denies: fever, chills Respiratory: Denies: cough, dyspnea Cardiovascular: Denies: chest pain, palpitations, edema Gastrointestinal: Reports: abdominal pain. Denies: nausea, vomiting, diarrhea, constipation, melena, hematochezia Genitourinary: Reports: other (Dark urine once yesterday). Denies: dysuria Musculoskeletal: Denies: back pain Skin: Denies: rash Neurological: Denies: headache, weakness <Brian Luna - Last Filed: 02/13/19 07:48> ROS Other: All systems not noted in ROS Statement are negative. <Jose Ly - Last Filed: 02/13/19 10:16> ROS Statement: Those systems with pertinent positive or pertinent negative responses have been documented in the HPI. Past Medical History Past Medical History: Myocardial Infarction (AL), Sleep Apnea/CPAP/BIPAP Additional Past Medical History / Comment(s): Coronary artery disease with an inferior wall myocardial infarction, cardiogenic shock, tachycardia with cardiac ablation, central sleep apnea-does not tolerate device very well, occasional low back pain, L arm injury with surgery/limited ROM L hand Last Myocardial Infarction Date:: 01/17/18 History of Any Multi-Drug Resistant Organisms: None Reported Past Surgical History: Back Surgery, Cardiac Ablation, Heart Catheterization With Stent, Orthopedic Surgery Additional Past Surgical History / Comment(s): PCI with stent 01/2018, low back surgery, colonoscopies, L arm injury with surgery. Past Anesthesia/Blood Transfusion Reactions: No Reported Reaction Date of Last Stent Placement:: 01/17/18 Past Psychological History: No Psychological Hx Reported Smoking Status: Former smoker Past Alcohol Use History: Occasional Past Drug Use History: None Reported - Past Family History Brother(s) Family Medical History: Myocardial Infarction (AL) Additional Family Medical History / Comment(s): in his 40s of throat cancer. Mother Family Medical History: Cancer, Coronary Artery Disease (CAD) Additional Family Medical History / Comment(s): Mother in her 80s of pancreatic cancer. Father Family Medical History: Cancer Additional Family Medical History / Comment(s): Father at age 54 yrs from mesothelioma. <Brian Luna - Last Filed: 02/13/19 07:48> General Exam Limitations: no limitations General appearance: alert, in no apparent distress Head exam: Present: atraumatic, normocephalic Eye exam: Present: normal appearance. Absent: scleral icterus, conjunctival inj ection ENT exam: Present: normal oropharynx Neck exam: Present: normal inspection Respiratory exam: Present: normal lung sounds bilaterally. Absent: respiratory distress, wheezes, rales, rhonchi, stridor Cardiovascular Exam: Present: regular rate, normal rhythm, normal heart sounds. Absent: systolic murmur, diastolic murmur, rubs, gallop GI/Abdominal exam: Present: soft. Absent: distended, tenderness, guarding, rebound, rigid, mass Extremities exam: Present: normal inspection, normal capillary refill. Absent: pedal edema, calf tenderness Back exam: Present: normal inspection. Absent: CVA tenderness (R), CVA tende rness (L) Neurological exam: Present: alert Skin exam: Present: warm, dry, intact, normal color. Absent: rash <Brian Luna - Last Filed: 02/13/19 07:48> Course Vital Signs 02/13/19 02/13/19 02/13/19 02:24 04:38 06:14 Temperature 98 F 97.9 F 97.8 F Pulse Rate 79 68 66 Respiratory 18 18 18 Rate Blood Pressure 138/95 121/81 121/89 O2 Sat by Pulse 98 98 96 Oximetry Medical Decision Making - Lab Data Result diagrams: 02/13/19 02:32 02/13/19 02:32 <Brian Luna - Last Filed: 02/13/19 07:48> - Lab Data Result diagrams: 02/13/19 02:32 02/13/19 02:32 <Jose Ly - Last Filed: 02/13/19 10:16> - Medical Decision Making The patient was endorsed me by Dr. Luna pending HIDA scan patient has right upper quadrant pain and tenderness palpation he did have sonographic Coats sign. I did discuss the case with the surgeon on-call patient be admitted for evaluation of right upper quadrant pain biliary colic head scan is pending I did discuss case with Dr. Herrera who is on surgical call today. (Jose Ly) - Lab Data Lab Results 02/13/19 02/13/19 02/13/19 Range/Units 02:32 02:32 04:41 WBC 10.4 (3.8-10.6) k/uL RBC 4.50 (4.30-5.90) m/uL Hgb 13.5 (13.0-17.5) gm/dL Hct 41.2 (39.0-53.0) % MCV 91.4 (80.0-100.0) fL MCH 30.1 (25.0-35.0) pg MCHC 32.9 (31.0-37.0) g/dL RDW 14.5 (11.5-15.5) % Plt Count 278 (150-450) k/uL Neutrophils % 69 % Lymphocytes % 20 % Monocytes % 6 % Eosinophils % 3 % Basophils % 1 % Neutrophils # 7.1 (1.3-7.7) k/uL Lymphocytes # 2.1 (1.0-4.8) k/uL Monocytes # 0.6 (0-1.0) k/uL Eosinophils # 0.3 (0-0.7) k/uL Basophils # 0.1 (0-0.2) k/uL Sodium 138 (137-145) mmol/L Potassium 4.7 (3.5-5.1) mmol/L Chloride 105 (98-107) mmol/L Carbon Dioxide 25 (22-30) mmol/L Anion Gap 8 mmol/L BUN 19 (9-20) mg/dL Creatinine 0.95 (0.66-1.25) mg/dL Est GFR (CKD-EPI)AfAm >90 (>60 ml/min/1.73 sqM) Est GFR (CKD-EPI)NonAf >90 (>60 ml/min/1.73 sqM) Glucose 108 H (74-99) mg/dL Calcium 9.7 (8.4-10.2) mg/dL Total Bilirubin 0.4 (0.2-1.3) mg/dL AST 30 (17-59) U/L ALT 35 (21-72) U/L Alkaline Phosphatase 83 (38-126) U/L Total Protein 7.1 (6.3-8.2) g/dL Albumin 4.4 (3.5-5.0) g/dL Amylase 62 (30-110) U/L Lipase 73 (23-300) U/L Urine Color Yellow Urine Appearance Clear (Clear) Urine pH 5.5 (5.0-8.0) Ur Specific [place] 1.030 (1.001-1.035) Urine Protein Negative (Negative) Urine Glucose (UA) Negative (Negative) Urine Ketones Negative (Negative) Urine Blood Trace H (Negative) Urine Nitrite Negative (Negative) Urine Bilirubin Negative (Negative) Urine Urobilinogen <2.0 (<2.0) mg/dL Ur Leukocyte Esterase Negative (Negative) Urine RBC 3 (0-5) /hpf Urine WBC 1 (0-5) /hpf Urine Bacteria Rare H (None) /hpf Disposition <Brian Luna - Last Filed: 02/13/19 07:48> <Jose Ly - Last Filed: 02/13/19 10:16> Clinical Impression: Biliary colic, Intractable abdominal pain Disposition: ADMITTED IP TO THIS [facility] Condition: Fair Referrals: Darya Salamanca MD [Primary Care Provider] - 1-2 days
[2019-02-13 03:35] LABS: Basophils # (A) 0.1 k/uL (0-0.2); Basophils % (A) 1 %; Eosinophils # (A) 0.3 k/uL (0-0.7); Eosinophils % (A) 3 %; HCT 41.2 % (39.0-53.0); HGB 13.5 gm/dL (13.0-17.5); Lymphocytes # (A) 2.1 k/uL (1.0-4.8); Lymphocytes % (A) 20 %; MCH 30.1 pg (25.0-35.0); MCHC 32.9 g/dL (31.0-37.0); MCV 91.4 fL (80.0-100.0); Mean Platelet Volume 7.3; Monocytes # (A) 0.6 k/uL (0-1.0); Monocytes % (A) 6 %; Neutrophils # (A) 7.1 k/uL (1.3-7.7); Neutrophils % (A) 69 %; Platelet Count 278 k/uL (150-450); RDW 14.5 % (11.5-15.5); WBC 10.4 k/uL (3.8-10.6)
[2019-02-13 03:45] LABS: ALT 35 U/L (21-72); AST 30 U/L (17-59); African American GFR (CKD) >90 (>60 ml/min/1.73 sqM); Albumin 4.4 g/dL (3.5-5.0); Alkaline Phosphatase 83 U/L (38-126); Amylase 62 U/L (30-110); Anion Gap 8 mmol/L; Blood Urea Nitrogen 19 mg/dL (9-20); Calcium 9.7 mg/dL (8.4-10.2); Carbon Dioxide 25 mmol/L (22-30); Chloride 105 mmol/L (98-107); Glucose 108 mg/dL (74-99); Lipase 73 U/L (23-300); Potassium 4.7 mmol/L (3.5-5.1); Sodium 138 mmol/L (137-145); Total Bilirubin 0.4 mg/dL (0.2-1.3); Total Protein 7.1 g/dL (6.3-8.2)
[2019-02-13 04:55] LABS: Appearance,Urine Clear (Clear); Bacteria,Urine Rare /hpf; Bilirubin,Urine Negative (Negative); Blood,Urine Trace (Negative); Color,Urine Yellow; Glucose,Urine (UA) Negative (Negative); Ketones,Urine Negative (Negative); Leukocyte Esterase,Urine Negative (Negative); Nitrite,Urine Negative (Negative); PH, Urine 5.5 (5.0-8.0); Protein,Urine Negative (Negative); RBC,Urine 3 /hpf (0-5); Urobilinogen,Urine <2.0 mg/dL (<2.0); WBC,Urine 1 /hpf (0-5)
--- NOTE | 2019-02-13 05:39 | CT ---
EXAM: CT Abdomen and Pelvis Without Intravenous Contrast CLINICAL HISTORY: ITS.REASON CT Reason: Pain TECHNIQUE: Axial computed tomography images of the abdomen and pelvis without intravenous contrast. CTDI is 13.8 mGy and DLP is 810.8 mGy-cm. This CT exam was performed using one or more of the following dose reduction techniques: automated exposure control, adjustment of the mA and/or kV according to patient size, and/or use of iterative reconstruction technique. COMPARISON: CT abdomen-pelvis 08/16/2018 FINDINGS: Lung bases: Imaged lung bases are clear except for mild bibasilar dependent atelectasis. ABDOMEN: Liver: Liver is unremarkable. Gallbladder and bile ducts: Gallbladder is unremarkable. No calcified stones. No ductal dilation. Pancreas: Pancreas is unremarkable. Spleen: Spleen is unremarkable. Adrenals: No adrenal masses. Kidneys and ureters: No evidence of renal calculi or hydronephrosis. Stomach and bowel: Stomach is nondistended. No evidence of bowel obstruction or pneumoperitoneum. PELVIS: Appendix: Normal-appearing appendix identified in the right lower quadrant. Bladder: Apparent bladder wall thickening likely related to nondistended urinary bladder. No bladder calculi. Reproductive: Unremarkable as visualized. ABDOMEN and PELVIS: Intraperitoneal space: See above. Bones/joints: Post surgical changes of previous L4-5 lumbar fusion with grade 2 L4-L5 anterolisthesis. Multilevel lumbar spine degenerative changes. . Soft tissues: Minimal fat-containing left inguinal hernia. Vasculature: No abdominal aortic aneurysm. Lymph nodes: No evidence of lymphadenopathy. IMPRESSION: No evidence of acute abdominal-pelvic process. No evidence of renal calculi or hydronephrosis.
--- NOTE | 2019-02-13 07:38 | US ---
EXAMINATION TYPE: US abdomen limited DATE OF EXAM: 02/13/2019 COMPARISON: CT CLINICAL HISTORY: Pain, attention RUQ. EXAM MEASUREMENTS: Liver Length: 17.0 cm Gallbladder Wall: 0.2 cm CBD: 0.6 cm Right Kidney: 11.9 x 6.0 x 6.0 cm Pancreas: not visualized due to midline bowel gas Liver: upper limits of normal at 17.0 cm . There is mild hyperechogenicity throughout suggesting und erlying steatosis. Gallbladder: distended at 9.7 cm, wall not thickened. Evidence for sonographic Coats's sign: Yes CBD: measures 0.6 cm , within normal limits. Right Kidney: No hydronephrosis or masses seen IMPRESSION: 1. Borderline hydropic size of the gallbladder without evidence of acute cholecystitis. HIDA scan cou ld be performed to evaluate for chronic cholecystitis or biliary dyskinesia. 2. Mild hyperechogenicity throughout the hepatic parenchyma suggesting mild degree hepatic steatosis.
[2019-02-13] MEDS ORDERED: NALOXONE 0.4 MG/ML 1 ML VIAL IV PRN (10:17)
[2019-02-13 10:59] VITALS: BMI 33.8
[2019-02-13] MEDS: SODIUM CHLORIDE 0.9% 1,000 ML IV SCH ×2 (11:25→17:44)
--- NOTE | 2019-02-13 13:50 | NM ---
EXAMINATION TYPE: NM hepatobiliary w CCK DATE OF EXAM: 02/13/2019 COMPARISON: NONE HISTORY: Right upper quadrant pain TECHNIQUE: After the intravenous administration of 4.8 mCi Tc 99m Mebrofenin hepatobiliary scintigrap hy is performed. Immediate images post injection. FINDINGS: There is satisfactory initial accumulation of tracer by the liver. The gallbladder is visualized wit hin 12 minutes. The small bowel activity is noted on delayed images. At one hour CCK was administer ed, patient was injected with 2.1 mcg of Kinevac, and gallbladder ejection fraction is calculated at 78 %, in the normal range. Therefore there is no scintigraphic evidence of cystic or common bile blake t obstruction to suggest acute cholecystitis or gallbladder dyskinesia. IMPRESSION: There is some delay in small bowel visualization, normal gallbladder ejection fraction.
[2019-02-13] MEDS ORDERED: HYDROmorphone 1 MG/ML 1 ML SYRINGE IVP PRN (14:37)
[2019-02-13] MEDS ORDERED: ACETAMINOPHEN TAB 325 MG TAB PO PRN (14:38)
--- NOTE | 2019-02-13 14:44 | P.GSHP ---
History of Present Illness H&P Date: 02/13/19 Chief Complaint: abdominal pain CHIEF COMPLAINT: abdominal pain HISTORY OF PRESENT ILLNESS: 53-year-old male who presented to the ER with a chief complaint of abdominal pain. Patient reports he began having right upper quadrant pain yesterday evening after eating hot dogs. He reports nausea yesterday but denies vomiting. Denies diarrhea or constipation. Denies fever or chills. Patient reports intermittent right upper quadrant pain over the past few months, about once a week, but states it has never been this severe. He is unab le to recall if these episodes occurred after eating. PAST MEDICAL HISTORY: See list. PAST SURGICAL HISTORY: See list. SOCIAL HISTORY: No illicit drug use. REVIEW OF SYSTEMS: CONSTITUTIONAL: Denies fever or chills. HEENT: Denies blurred vision, vision changes, or eye pain. Denies hemoptysis CARDIOVASCULAR: Denies chest pain or pressure. RESPIRATORY: No shortness of breath. GASTROINTESTINAL: Refer to HPI for pertinent findings HEMATOLOGIC: Denies bleeding disorders. GENITOURINARY: Denies any blood in urine. SKIN: Denies pruitis. Denies rash. PHYSICAL EXAM: VITAL SIGNS: Reviewed. GENERAL: Well-developed in no acute distress. HEENT: No sclera icterus. Extraocular movements grossly intact. Moist buccal mucosa. Head is atraumatic, normocephalic. ABDOMEN: Soft. Nondistended. Mild tenderness to right upper quadrant. NEUROLOGIC: Alert and oriented. Cranial nerves II through XII grossly intact. IMAGIN. Abdominal US: Borderline hydropic size of the gallbladder without evidence of acute cholecystitis. 2. CT abdomen/pelvis: Negative for acute process 3. HIDA scan: Gallbladder EF 78% ASSESSMENT: 1. Right upper quadrant abdominal pain PLAN: 1. Low fat diet 2. Pain control 3. Further recommendations pending evaluation by Dr. Herrera this evening Nurse practitioner note has been reviewed by physician. Signing provider agrees with the documented findings, assessment, and plan of care. Past Medical History Past Medical History: Coronary Artery Disease (CAD), Myocardial Infarction (ID), Sleep Apnea/CPAP/BIPAP Additional Past Medical History / Comment(s): Inferior wall myocardial infarction/cardiogenic shock/externally paced and short term intubation/vent, tachycardia with cardiac ablation, central sleep apnea-does not tolerate device, occasional low back pain, L arm injury with surgery/limited ROM L hand Last Myocardial Infarction Date:: 01/17/18 History of Any Multi-Drug Resistant Organisms: None Reported Past Surgical History: Back Surgery, Cardiac Ablation, Heart Catheterization With Stent, Orthopedic Surgery Additional Past Surgical History / Comment(s): PCI with stent 01/2018, low back surgery-has 2 rods/4 screws, colonoscopies, L arm injury with surgery. Past Anesthesia/Blood Transfusion Reactions: No Reported Reaction Date of Last Stent Placement:: 01/17/18 Smoking Status: Former smoker - Past Family History Brother(s) Family Medical History: Myocardial Infarction (ID) Additional Family Medical History / Comment(s): in his 40s of throat cancer. Mother Family Medical History: Cancer, Coronary Artery Disease (CAD) Additional Family Medical History / Comment(s): Mother in her 80s of pancreatic cancer. Father Family Medical History: Cancer Additional Family Medical History / Comment(s): Father at age 54 yrs from mesothelioma. Medications and Allergies Home Medications Medication Instructions Recorded Confirmed Type Aspirin 81 mg PO DAILY #30 chew 01/20/18 02/13/19 Rx Atorvastatin [Lipitor] 40 mg PO HS #30 tablet 04/19/18 02/13/19 Rx Allergies Allergy/AdvReac Type Severity Reaction Status Date / Time No Known Allergies Allergy Verified 02/13/19 07:34 Surgical - Exam Vital Signs Temp Pulse Resp BP Pulse Ox 98 F 79 18 138/95 98 02/13/19 02:24 02/13/19 02:24 02/13/19 02:24 02/13/19 02:24 02/13/19 02:24 Results - Labs 02/13/19 02:32 02/13/19 02:32 Abnormal Lab Results - Last 24 Hours (Table) 02/13/19 02/13/19 Range/Units 02:32 04:41 Glucose 108 H (74-99) mg/dL Urine Blood Trace H (Negative) Urine Bacteria Rare H (None) /hpf Diabetes panel 02/13/19 Range/Units 02:32 Sodium 138 (137-145) mmol/L Potassium 4.7 (3.5-5.1) mmol/L Chloride 105 (98-107) mmol/L Carbon Dioxide 25 (22-30) mmol/L BUN 19 (9-20) mg/dL Creatinine 0.95 (0.66-1.25) mg/dL Glucose 108 H (74-99) mg/dL Calcium 9.7 (8.4-10.2) mg/dL AST 30 (17-59) U/L ALT 35 (21-72) U/L Alkaline Phosphatase 83 (38-126) U/L Total Protein 7.1 (6.3-8.2) g/dL Albumin 4.4 (3.5-5.0) g/dL Calcium panel 02/13/19 Range/Units 02:32 Calcium 9.7 (8.4-10.2) mg/dL Albumin 4.4 (3.5-5.0) g/dL Pituitary panel 02/13/19 Range/Units 02:32 Sodium 138 (137-145) mmol/L Potassium 4.7 (3.5-5.1) mmol/L Chloride 105 (98-107) mmol/L Carbon Dioxide 25 (22-30) mmol/L BUN 19 (9-20) mg/dL Creatinine 0.95 (0.66-1.25) mg/dL Glucose 108 H (74-99) mg/dL Calcium 9.7 (8.4-10.2) mg/dL Adrenal panel 02/13/19 Range/Units 02:32 Sodium 138 (137-145) mmol/L Potassium 4.7 (3.5-5.1) mmol/L Chloride 105 (98-107) mmol/L Carbon Dioxide 25 (22-30) mmol/L BUN 19 (9-20) mg/dL Creatinine 0.95 (0.66-1.25) mg/dL Glucose 108 H (74-99) mg/dL Calcium 9.7 (8.4-10.2) mg/dL Total Bilirubin 0.4 (0.2-1.3) mg/dL AST 30 (17-59) U/L ALT 35 (21-72) U/L Alkaline Phosphatase 83 (38-126) U/L Total Protein 7.1 (6.3-8.2) g/dL Albumin 4.4 (3.5-5.0) g/dL
[2019-02-13] MEDS: KETOROLAC 30 MG/ML 1 ML VIAL IVP PRN ×2 (16:33→23:20)
[2019-02-13] MEDS: ATORVASTATIN 40 MG TAB PO SCH (20:23)
[2019-02-13] MEDS: HEPARIN SODIUM,PORCINE 5,000 UNIT/ML 1 ML VIAL SQ SCH (23:22)
[2019-02-14] MEDS: SODIUM CHLORIDE 0.9% 1,000 ML IV SCH ×3 (04:50→18:13)
[2019-02-14] MEDS: PANTOPRAZOLE 40 MG/10 ML VIAL IVP SCH (07:09)
[2019-02-14] MEDS: HEPARIN SODIUM,PORCINE 5,000 UNIT/ML 1 ML VIAL SQ SCH ×2 (07:09→16:41)
[2019-02-14] MEDS: ASPIRIN 81 MG PO SCH (09:03)
[2019-02-14] MEDS ORDERED: LACTATED RINGERS 1,000 ML IV ONE ×2 (10:20→11:51)
[2019-02-14] MEDS ORDERED: ROCURONIUM BROMIDE 10 MG/ML 10 ML VIAL IV ONE (11:21)
[2019-02-14] MEDS ORDERED: SUCCINYLCHOLINE CHLORIDE 100 MG/5 ML SYR IV ONE (11:21)
[2019-02-14] MEDS ORDERED: PROPOFOL 10 MG/ML 20 ML VIAL IV ONE (11:21)
[2019-02-14] MEDS ORDERED: NEOSTIGMINE 1 MG/ML 10 ML VIAL ONE (11:21)
[2019-02-14] MEDS ORDERED: fentaNYL (PF) 50 MCG/ML 2 ML AMP ONE (11:21)
[2019-02-14] MEDS ORDERED: LIDOCAINE 1% INJ 10MG/ML (20 ML MDV) ONE (11:21)
[2019-02-14] MEDS ORDERED: GLYCOPYRROLATE 0.2 MG/ML 2 ML VIAL ONE (11:21)
[2019-02-14] MEDS ORDERED: MIDAZOLAM 2 MG/2 ML VIAL ONE (11:21)
[2019-02-14] MEDS ORDERED: BUPIVACAIN-EPI 0.25%-1:200,000 30 ML VIAL SQ ONE ×2 (11:27→11:46)
[2019-02-14] MEDS ORDERED: SODIUM CHLORIDE 0.9% 50 ML with ceFAZolin 2,000 MG IV ONE ×2 (11:46)
--- NOTE | 2019-02-14 12:12 | P.OP ---
Date of Procedure: 02/14/19 Preoperative Diagnosis: Cholecystitis Postoperative Diagnosis: Cholecystitis Procedure(s) Performed: Laparoscopic cholecystectomy Anesthesia: KRYSTLE Surgeon: Jhonatan Herrera Estimated Blood Loss (ml): 5 Pathology: other (Gallbladder) Condition: stable Disposition: PACU Description of Procedure: The patient was placed on the operating table. The patient received a general endotracheal tube anesthesia. The patients abdomen was prepped and draped in the usual sterile fashion. Through an infraumbilical stab incision, the fascia of the anterior abdominal wall was grasped with a pair of Kochers and then the Veress needle was placed in the peritoneal cavity. Position of the Veress needle was confirmed with positive drop test. The abdomen was then insufflated. After adequate insufflation, the 10 mm trocar was placed in the peritoneal cavity. Following this the laparoscope was placed in the peritoneal cavity. The patient was placed in the head-up, right side up position and then a 5 mm trocar was placed in the right lateral and right subcostal position under direct visualization. A 8 mm trocar was placed in the epigastric position. The gallbladder was grasped in the fundus and infundibulum. Traction on the gallbladder was placed in the lateral and the cephalad positions. The triangle of Calot was visualized.. The cystic duct was bluntly dissected until the union of the cystic duct and common bile duct was seen. A critical view of safety was achieved. The cystic duct was then divided and sealed with the Harmonic scissors. A PDS Endoloop was then placed throughout the cystic duct stump. The cystic artery divided and sealed with the Harmonic scissors. The gallbladder was then removed from the liver bed using Harmonic scissors. The gallbladder was then extracted through the epigastric port site. Operative field was checked for any bleeding spots and Harmonic scissors was used to coagulate the liver bed. The abdomen was irrigated. The trocars were removed. The skin was closed using interrupted 3-0 Vicryl suture. Dermabond dressing were applied. The patient tolerated the procedure well.
[2019-02-14] MEDS ORDERED: KETOROLAC 30 MG/ML 1 ML VIAL ONE (15:33)
[2019-02-14] MEDS ORDERED: HYDROcodone/APAP 5-325MG 1 EACH TAB PO PRN (20:23)
[2019-02-14] MEDS: ATORVASTATIN 40 MG TAB PO SCH (20:46)
[2019-02-15] MEDS: HEPARIN SODIUM,PORCINE 5,000 UNIT/ML 1 ML VIAL SQ SCH ×2 (02:12→07:16)
[2019-02-15 05:52] VITALS: BP 110/69; PULSE 70; RESP 17; TEMP 97.8
[2019-02-15] MEDS: SODIUM CHLORIDE 0.9% 1,000 ML IV SCH ×2 (06:26→07:16)
[2019-02-15] MEDS: ASPIRIN 81 MG PO SCH (07:16)
[2019-02-15] MEDS: PANTOPRAZOLE 40 MG/10 ML VIAL IVP SCH (07:16)
[2019-02-15] MEDS: KETOROLAC 30 MG/ML 1 ML VIAL IVP PRN (07:21)
--- NOTE | 2019-02-15 10:41 | P.DS ---
Providers Date of admission: 02/13/19 10:19 Expected date of discharge: 02/15/19 Attending physician: Jhonatan Herrera Primary care physician: Darya Salamanca Hospital Course: 53-year-old male who presented to the ER with a chief complaint of abdominal pain. Patient reports he began having right upper quadrant pain yesterday evening after eating hot dogs. Patient reports history of intermittent right upper quadrant pain for the past few months. Patient underwent laparoscopic cholecystectomy with Dr. Herrera on 02/14/2019. Patient is doing well postoperatively. His pain is well-controlled. His vital signs are stable. He is tolerating diet. He is stable for discharge home today. Please see EMR for further hospital course details Discharge diagnosis: 1. Right upper quadrant abdominal pain 2. Cholecystitis Nurse practitioner note has been reviewed by physician. Signing provider agrees with the documented findings, assessment, and plan of care. Patient Condition at Discharge: Stable Plan - Discharge Summary Discharge Rx Participant: No New Discharge Prescriptions: New Hydrocodone/Acetaminophen [[place] 5-325] 1 tab PO Q6HR PRN 3 Days #12 tab PRN Reason: Pain No Action Aspirin 81 mg PO DAILY #30 chew Atorvastatin [Lipitor] 40 mg PO HS #30 tablet Discharge Medication List Aspirin 81 mg PO DAILY #30 chew 01/20/18 [Rx] Atorvastatin [Lipitor] 40 mg PO HS #30 tablet 04/19/18 [Rx] Hydrocodone/Acetaminophen [[place] 5-325] 1 tab PO Q6HR PRN 3 Days #12 tab 02/15/19 [Rx] Follow up Appointment(s)/Referral(s): Darya Salamanca MD [Primary Care Provider] - 1-2 days (office will call with appointment date and time) Jhonatan Herrera MD [STAFF PHYSICIAN] - 02/23/19 2:45 pm Patient Instructions/Handouts: Laparoscopic Cholecystectomy (DC) Activity/Diet/Wound Care/Special Instructions: No driving while taking [place] No lifting over 10 pounds You may shower. No soaking or tub baths Very light activity until you are reevaluated at your follow up appointment with your surgeon Discharge/Stand Alone Forms: Work/School Release Discharge Disposition: HOME SELF-CARE
== END 2019-02-15 10:21 | disposition home or self-care (01) ==
LOC: EC 02:17 → 4MS4W 10:19
PROVIDERS: ADMIT Surgery; ATTEND Surgery
DX: K81.1 Chronic cholecystitis (principal); I25.10 Atherosclerotic heart disease of native coronary artery without angina pectoris; G47.31 Primary central sleep apnea; Z79.82 Long term (current) use of aspirin; Z99.89 Dependence on other enabling machines and devices; Z79.899 Other long term (current) drug therapy; I25.2 Old myocardial infarction; Z95.5 Presence of coronary angioplasty implant and graft; Z98.1 Arthrodesis status; Z86.79 Personal history of other diseases of the circulatory system; Z87.891 Personal history of nicotine dependence; Z82.49 Family history of ischemic heart disease and other diseases of the circulatory system; Z80.8 Family history of malignant neoplasm of other organs or systems; Z80.0 Family history of malignant neoplasm of digestive organs
CPT/HCPCS: 47562; 96376 ×2; 96372 ×3; 96375; 96374; 99285; 36415; 88304; 80053; 82150; 83690; 85025; 81001; 76705; 74176; 78227; G0378 ×3; A9537; J2250; J1644 ×3; J2710; J0690; J2805; J2001; J3010; J1885 ×3; J1170 ×2; J0330; J2704; C9113 ×2

== ENCOUNTER 2020-01-28 13:27 | Inpatient (IN) | payer BC ==
[2020-01-28] MEDS ORDERED: ASPIRIN 81 MG PO STA (13:38)
[2020-01-28 14:00] LABS: Basophils # (A) 0.1 k/uL (0-0.2); Basophils % (A) 0 %; Eosinophils # (A) 0.3 k/uL (0-0.7); Eosinophils % (A) 2 %; HGB 15.2 gm/dL (13.0-17.5); Lymphocytes # (A) 2.1 k/uL (1.0-4.8); Lymphocytes % (A) 17 %; MCH 30.7 pg (25.0-35.0); MCHC 31.6 g/dL (31.0-37.0); MCV 96.9 fL (80.0-100.0); Monocytes # (A) 0.6 k/uL (0-1.0); Monocytes % (A) 5 %; Neutrophils # (A) 9.7 k/uL (1.3-7.7); Neutrophils % (A) 75 %; Platelet Count 279 k/uL (150-450); RBC 4.95 m/uL (4.30-5.90); RDW 14.3 % (11.5-15.5); WBC 12.9 k/uL (3.8-10.6)
[2020-01-28 14:10] LABS: ALT 32 U/L (4-49); AST 44 U/L (17-59); African American GFR (CKD) >90 (>60 ml/min/1.73 sqM); Albumin 4.8 g/dL (3.5-5.0); Alkaline Phosphatase 70 U/L (38-126); Anion Gap 9 mmol/L; Blood Urea Nitrogen 16 mg/dL (9-20); Calcium 9.6 mg/dL (8.4-10.2); Carbon Dioxide 23 mmol/L (22-30); Chloride 105 mmol/L (98-107); Glucose 103 mg/dL (74-99); Magnesium 2.1 mg/dL (1.6-2.3); Non-African American GFR(CKD) >90 (>60 ml/min/1.73 sqM); Sodium 137 mmol/L (137-145); Total Bilirubin 0.8 mg/dL (0.2-1.3); Total Protein 7.7 g/dL (6.3-8.2)
[2020-01-28 14:11] LABS: Potassium 4.6 mmol/L (3.5-5.1)
--- NOTE | 2020-01-28 14:15 | XR ---
EXAMINATION TYPE: XR chest 2V DATE OF EXAM: 01/28/2020 COMPARISON: 04/18/2018 HISTORY: Chest pain TECHNIQUE: 2 views FINDINGS: Heart and mediastinum are normal. Lungs are clear of infiltrate. Costophrenic angles are cl ear. There are no hilar masses. There are chest leads. There are a few small calcified scattered gran ulomata in the lungs. IMPRESSION: No active cardiopulmonary disease. Inspiration decreased slightly compared to old exam.
[2020-01-28 14:19] LABS: INR 0.9 (<1.2); Partial Thromboplastin Time 22.8 sec (22.0-30.0); Prothrombin Time 9.7 sec (9.0-12.0)
--- NOTE | 2020-01-28 14:33 | ED ---
Chest Pain HPI - General Chief Complaint: Chest Pain Stated Complaint: chest pain Time Seen by Provider: 01/28/20 13:35 Source: patient, RN notes reviewed Mode of arrival: wheelchair Limitations: no limitations - History of Present Illness Initial Comments: 54-year-old male presents emergency Department with chief complaint of chest discomfort, palpitations. Patient states her last day or so he's had some intermittent symptoms where he has sharp pain and mL sensation in his chest. Patient is concerned as 2 years ago he had 100% circumflex occlusion. Patient had one stent placed. Patient also had a history of A. fib. Patient states he had other blockages up to 30% that time. Patient states that he never really any true chest pain in which he collapsed upon presenting to the emergency department at that time. Patient is concerned that he has similar symptoms. Denies any shortness breath no fevers chills no nausea vomiting. Patient does take aspirin, Lipitor daily he was recent started on metoprolol 1 week ago. - Related Data Previous Rx's Medication Instructions Recorded Aspirin 81 mg PO DAILY #30 chew 01/20/18 Atorvastatin [Lipitor] 40 mg PO HS #30 tablet 04/19/18 Hydrocodone/Acetaminophen [[place] 1 tab PO Q6HR PRN 3 Days #12 tab 02/15/19 5-325] Allergies Allergy/AdvReac Type Severity Reaction Status Date / Time No Known Allergies Allergy Verified 01/28/20 13:31 Review of Systems ROS Statement: Those systems with pertinent positive or pertinent negative responses have been documented in the HPI. ROS Other: All systems not noted in ROS Statement are negative. EKG Findings - EKG Comments: EKG Findings:: EKG performed at 13:35 sinus rhythm, rate of 87 FL 176 QRS 94 QT/QTC 404/486 Q noted in lead 3, possible left atrial enlargement, Past Medical History Past Medical History: Coronary Artery Disease (CAD), Myocardial Infarction (ND), Sleep Apnea/CPAP/BIPAP Additional Past Medical History / Comment(s): Inferior wall myocardial infarction/cardiogenic shock/externally paced and short term intubation/vent, tachycardia with cardiac ablation, central sleep apnea-does not tolerate device, occasional low back pain, L arm injury with surgery/limited ROM L hand Last Myocardial Infarction Date:: 01/17/18 History of Any Multi-Drug Resistant Organisms: None Reported Past Surgical History: Back Surgery, Cardiac Ablation, Heart Catheterization With Stent, Orthopedic Surgery Additional Past Surgical History / Comment(s): PCI with stent 01/2018, low back surgery-has 2 rods/4 screws, colonoscopies, L arm injury with surgery. Past Anesthesia/Blood Transfusion Reactions: No Reported Reaction Date of Last Stent Placement:: 01/17/18 Past Psychological History: No Psychological Hx Reported Smoking Status: Former smoker - Past Family History Brother(s) Family Medical History: Myocardial Infarction (ND) Additional Family Medical History / Comment(s): in his 40s of throat cancer. Mother Family Medical History: Cancer, Coronary Artery Disease (CAD) Additional Family Medical History / Comment(s): Mother in her 80s of pancreatic cancer. Father Family Medical History: Cancer Additional Family Medical History / Comment(s): Father at age 54 yrs from mesothelioma. General Exam Limitations: no limitations General appearance: alert, in no apparent distress Head exam: Present: atraumatic, normocephalic, normal inspection Eye exam: Present: normal appearance, PERRL, EOMI. Absent: scleral icterus, conjunctival injection, periorbital swelling ENT exam: Present: normal exam, normal oropharynx, mucous membranes moist, TM's normal bilaterally Neck exam: Present: normal inspection, full ROM. Absent: tenderness, meningismus, lymphadenopathy Respiratory exam: Present: normal lung sounds bilaterally. Absent: respiratory distress, wheezes, rales, rhonchi, stridor Cardiovascular Exam: Present: regular rate, normal rhythm, normal heart sounds. Absent: systolic murmur, diastolic murmur, rubs, gallop, clicks GI/Abdominal exam: Present: soft, normal bowel sounds. Absent: distended, tenderness, guarding, rebound, rigid Extremities exam: Absent: pedal edema Neurological exam: Present: alert, oriented X3, CN II-XII intact Skin exam: Present: warm, dry, intact, normal color. Absent: rash Course Vital Signs 01/28/20 01/28/20 13:28 14:26 Temperature 98.2 F Pulse Rate 92 82 Respiratory 16 18 Rate Blood Pressure 163/100 121/78 O2 Sat by Pulse 98 97 Oximetry Chest Pain MDM - [facility] 53-year-old male presented for chest pain. Workup Does Not Reveal Any Elevated Troponin, No Acute EKG. Patient Has Coronary Disease, Hypertension Hyperlipidemia. Patient Will Be Admitted for Cardiology Evaluation. Disposition Clinical Impression: Chest pain Disposition: ADMITTED IP TO THIS HOSP Condition: Stable Referrals: Daray Salamanca MD [Primary Care Provider] - 1-2 days
[2020-01-28] MEDS ORDERED: NITROGLYCERIN SL TABS 0.4 MG TAB SUBLINGUAL PRN (14:52)
[2020-01-28] MEDS ORDERED: HEPARIN SODIUM,PORCINE 5,000 UNIT/ML 1 ML VIAL IV ONE (14:52)
[2020-01-28] MEDS: HEPARIN SOD,PORK IN 0.45% NACL 25,000 UNIT in 0.45% NACL 1 250ML.BAG IV SCH (15:18)
[2020-01-28] MEDS ORDERED: MORPHINE SULFATE 4 MG/ML SYRINGE IV PRN (17:26)
[2020-01-28] MEDS ORDERED: NALOXONE 0.4 MG/ML 1 ML VIAL IV PRN (17:26)
[2020-01-28] MEDS ORDERED: ACETAMINOPHEN TAB 325 MG TAB PO PRN (17:26)
[2020-01-28] MEDS ORDERED: LORazepam 2 MG/ML INJ IV PRN ×3 (18:25)
--- NOTE | 2020-01-28 18:26 | P.HPIM ---
History of Present Illness H&P Date: 01/28/20 Chief Complaint: Chest pain 54-year-old male with PMH of CAD with history of ST elevation GA in the past along with third degree AV block that resolved with revascularization and cardiogenic shock with a history of intubation in 2018, paroxysmal atrial fibrillation post ablation, obstructive and central sleep apnea, hypertension, dyslipidemia, 25-oram-qash smoking history quit in 2018, daily alcohol use presents the ED for chest discomfort and palpitations. Patient reports a 2 day history of palpitations that have been occurring intermittently. He has experienced this sensation 5 times in the past 2 days. Each episode lasts for about 15 minutes. Patient reports some anxiety 2018 after a prolonged hospital course for STEMI. He reports drinking 2-4 cups of coffee every day. Patient reports nicotine lozenges and the occasional cigar. He reports drinking 3-4 b ottles of beer on a daily basis. Patient reports chest discomfort that started during his palpitations today. Patient describes this as pressure-like and is unable to describe it any further. Patient states that the symptoms are not typical of what he experienced in 2018. 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 Sosa after 6 months-1 year (patient is unsure of timing). His PCP did notice that his blood pressure has been increasing more recently and he was restarted back on his metoprolol 1 week ago. Patient denies any headaches, lower extremity edema, nausea or vomiting, fever or chills, cough, shortness of breath, changes in urination or bowel habits. No changes in appetite or weight. He denies any dizziness, numbness/weakness/tingling of the extremities. In the ED, his vital signs were stable. CBC showed leukocytosis of 12.9 with neutrophilia. INR was 0.9. CMP showed glucose of 103. Troponin was less than 0.012 with EKG showing normal sinus rhythm and inferior and T-wave inversions. Patient started on a heparin drip and admitted for chest pain, rule out acute coronary syndrome with cardiology consultation. Review of Systems Pertinent positives and negatives as discussed in HPI, a complete review of systems was performed and all other systems are negative. Past Medical History Past Medical History: Atrial Fibrillation, Coronary Artery Disease (CAD), Myocardial Infarction (GA), Sleep Apnea/CPAP/BIPAP Additional Past Medical History / Comment(s): Inferior wall myocardial infarction/cardiogenic shock/externally paced and short term intubation/vent, tachycardia with cardiac ablation, central sleep apnea-does not tolerate device, occasional low back pain, L arm injury with surgery/limited ROM L hand Last Myocardial Infarction Date:: 01/17/18 History of Any Multi-Drug Resistant Organisms: None Reported Past Surgical History: Back Surgery, Cardiac Ablation, Heart Catheterization Wit h Stent, Orthopedic Surgery Additional Past Surgical History / Comment(s): PCI with stent 01/2018, low back surgery-has 2 rods/4 screws, colonoscopies, left arm injury with surgery. Past Anesthesia/Blood Transfusion Reactions: No Reported Reaction Date of Last Stent Placement:: 01/17/18 Past Psychological History: No Psychological Hx Reported Additional Psychological History / Comment(s): Pt resides with his spouse and adult child. He is independent. He works for [employer]. Smoking Status: Light tobacco smoker Past Alcohol Use History: Occasional Additional Past Alcohol Use History / Comment(s): Pt started smoking in 1988 and quit in January of 2018. Pt states he drinks 3 to 3 beers a day. Occasionally smokes a cigar. Past Drug Use History: None Reported - Past Family History Brother(s) Family Medical History: Myocardial Infarction (GA) Additional Family Medical History / Comment(s): in his 40s of throat cancer. Mother Family Medical History: Cancer, Coronary Artery Disease (CAD) Additional Family Medical History / Comment(s): Mother in her 80s of pancreatic cancer. Father Family Medical History: Cancer Additional Family Medical History / Comment(s): Father at age 54 yrs from mesothelioma. Medications and Allergies Home Medications Medication Instructions Recorded Confirmed Type Atorvastatin [Lipitor] 40 mg PO HS #30 tablet 04/19/18 01/28/20 Rx Aspirin EC [Ecotrin Low Dose] 81 mg PO DAILY 01/28/20 01/28/20 History Metoprolol Succinate [Toprol XL] 25 mg PO DAILY 01/28/20 01/28/20 History Allergies Allergy/AdvReac Type Severity Reaction Status Date / Time No Known Allergies Allergy Verified 01/28/20 17:07 Physical Exam Vitals: Vital Signs Temp Pulse Pulse Resp BP BP Pulse Ox 01/28/20 16:00 79 16 01/28/20 15:27 98.5 F 79 16 136/80 98 01/28/20 15:22 97 18 134/88 99 01/28/20 14:26 82 18 121/78 97 01/28/20 13:28 98.2 F 92 16 163/100 98 Intake and Output 01/28/20 01/28/20 01/28/20 06:59 14:59 22:59 Other: Weight 107.955 kg 107.955 kg General: [non toxic], [no distress], [appears at stated age] Derm: [warm], [dry] Head: [atraumatic], [normocephalic], [symmetric] Eyes: [EOMI], [no lid lag], [anicteric sclera] Mouth: [no lip lesion], [mucus membranes moist] Cardiovascular: [S1S2 reg], [no murmur], [positive posterior tibial pulse bilateral], Lungs: [CTA bilateral], [no rhonchi, no rales] , [no accessory muscle use] Abdominal: [soft], [ nontender to palpation], [no guarding], [no appreciable organomegaly] Ext: [no gross muscle atrophy], [no edema], [no contractures] Neuro: [ CN II-XI grossly intact], [no focal neuro deficits] Psych: [Alert], [oriented], [appropriate affect] Results CBC & Chem 7: 01/28/20 13:42 01/28/20 13:42 Labs: Abnormal Lab Results - Last 24 Hours (Table) 01/28/20 01/28/20 Range/Units 13:42 13:42 WBC 12.9 H (3.8-10.6) k/uL Neutrophils # 9.7 H (1.3-7.7) k/uL Glucose 103 H (74-99) mg/dL Thrombosis Risk Factor Assmnt - Choose All That Apply Each Factor Represents 1 point: Age 41-60 years Thrombosis Risk Factor Assessment Total Risk Factor Score: 1 Thrombosis Risk Factor Assessment Level: Low Risk Assessment and Plan Assessment: Palpitations and chest pain with history of CAD Paroxysmal atrial fibrillation post ablation Hypertension Dyslipidemia Sleep apnea Chronic alcohol abuse Nicotine addiction Obesity with BMI 34.1 Patient's palpitations and vague chest pain is not consistent with ACS. He does however have multiple risk factors including smoking, history of severe CAD, hypertension, dyslipidemia and chronic alcohol abuse. Troponin was less than 0.012 with EKG showing normal sinus rhythm with T-wave inversions. Chest x-ray was negative. His DELIA risk score is 3. Plans: Start heparin drip. Start aspirin and Lipitor. Start metoprolol. Trend troponin/EKG to rule out ACS. Follow-up echocardiogram. Telemetry monitoring. Follow cardiology consultation . Not seen currently. Plans: Previously was on anticoagulation which was discontinued by his glass cut off supervisor. Continue metoprolol. Continue heparin drip. Keep potassium greater than 4 and magnesium greater than 2. Telemetry monitoring. Cardiology on board. BP 136/80. Plans: Continue metoprolol. Monitor vitals, adjust medications as necessary. Plans: Continue Lipitor. Follow lipid panel. Patient reports central and obstructive sleep apnea. Used to follow pulmonology. Plans: Follow-up in the outpatient setting. 2-3 beers daily. Patient denies alcohol withdrawal symptoms. Plans: CIWA protocol. Ativan as needed. Plans: Offered nicotine patch. Plans: Patient would benefit from structured weight loss program. DVT prophylaxis: [Heparin drip] Discussed with: [Patient] Anticipated discharge: [1-2 days] Anticipated discharge place: [Home] A total of [35] minutes was spent on the care of this complex patient more than 50% of the time was spent in counseling and care coordination. Patient names his Coleen decision maker if he can't make decisions for himself. Patient would like to be full code.
[2020-01-28] MEDS: ATORVASTATIN 40 MG TAB PO SCH (20:03)
[2020-01-28] MEDS ORDERED: MELATONIN 5 MG TABLET PO PRN (20:28)
[2020-01-29 02:38] LABS: Basophils % (A) 0 %; Eosinophils # (A) 0.4 k/uL (0-0.7); Eosinophils % (A) 4 %; HGB 13.9 gm/dL (13.0-17.5); Lymphocytes # (A) 2.7 k/uL (1.0-4.8); Lymphocytes % (A) 26 %; MCH 31.7 pg (25.0-35.0); MCHC 32.3 g/dL (31.0-37.0); MCV 98.2 fL (80.0-100.0); Mean Platelet Volume 7.9; Monocytes # (A) 0.4 k/uL (0-1.0); Monocytes % (A) 4 %; Neutrophils # (A) 6.6 k/uL (1.3-7.7); Neutrophils % (A) 64 %; Platelet Count 236 k/uL (150-450); RBC 4.38 m/uL (4.30-5.90); RDW 13.7 % (11.5-15.5); WBC 10.3 k/uL (3.8-10.6)
[2020-01-29 05:16] LABS: ALT 26 U/L (4-49); AST 30 U/L (17-59); African American GFR (CKD) >90 (>60 ml/min/1.73 sqM); Albumin 3.7 g/dL (3.5-5.0); Alkaline Phosphatase 86 U/L (38-126); Anion Gap 10 mmol/L; Blood Urea Nitrogen 15 mg/dL (9-20); Calcium 9.1 mg/dL (8.4-10.2); Carbon Dioxide 18 mmol/L (22-30); Chloride 110 mmol/L (98-107); Cholesterol 93 mg/dL (<200); Glucose 106 mg/dL (74-99); HDL Cholesterol 57 mg/dL (40-60); Non-African American GFR(CKD) >90 (>60 ml/min/1.73 sqM); Potassium 4.4 mmol/L (3.5-5.1); Sodium 138 mmol/L (137-145); Total Bilirubin 0.3 mg/dL (0.2-1.3); Total Protein 6.4 g/dL (6.3-8.2); Triglycerides 182 mg/dL (<150)
[2020-01-29] MEDS ORDERED: ASPIRIN 325 MG TAB PO SCH (09:00)
--- NOTE | 2020-01-29 10:53 | ECHOF ---
Referral Reason:chest pain MEASUREMENTS -------- HEIGHT: 180.3 cm WEIGHT: 107.5 kg BP: RVIDd: 2.5 cm (< 3.3) IVSd: 1.1 cm (0.6 - 1.1) LVIDd: 4.7 cm (3.9 - 5.3) LVPWd: 1.1 cm (0.6 - 1.1) IVSs: 1.4 cm LVIDs: 3.7 cm LVPWs: 1.2 cm LAESV Index (A-L): 17.34 ml/m Ao Diam: 3.1 cm (2.0 - 3.7) AV Cusp: 2.3 cm (1.5 - 2.6) LA Diam: 3.5 cm (2.7 - 3.8) MV EXCURSION: 22.560 mm (> 18.000) MV EF SLOPE: 142 mm/s (70 - 150) EPSS: 0.6 cm MV E Jaime: 0.80 m/s MV DecT: 187 ms MV A Jaime: 0.64 m/s MV E/A Ratio: 1.25 RAP: 5.00 mmHg RVSP: 25.88 mmHg FINDINGS -------- Sinus rhythm. This was a technically good study. The left ventricular size is normal. Left ventricular wall thickness is normal. Overall left vent ricular systolic function is mildly impaired with, an EF between 45 - 50 %. Basal inferior LV wall motion is hypokinetic. The right ventricle is normal in size. The left atrial size is normal. Normal LA size by volume 22+/-6 ml/m2. The right atrial size is normal. Unable to visualize the septum. The aortic valve is trileaflet and appears structurally normal. The mitral valve is normal. Mild mitral regurgitation is present. The tricuspid valve appears structurally normal. Trace tricuspid regurgitation present. Right salome tricular systolic pressure is normal at < 35 mmHg. There is no pulmonic regurgitation present. The aortic root size is normal. Normal inferior vena cava with normal inspiratory collapse consistent with estimated right atrial pre ssure of 5 mmHg. There is no pericardial effusion. CONCLUSIONS -------- 1. Sinus rhythm. 2. This was a technically good study. 3. The left ventricular size is normal. 4. Left ventricular wall thickness is normal. 5. Overall left ventricular systolic function is mildly impaired with, an EF between 45 - 50 %. 6. The right ventricle is normal in size. 7. The left atrial size is normal. 8. Normal LA size by volume 22+/-6 ml/m2. 9. The right atrial size is normal. 10. Unable to visualize the septum. 11. The aortic valve is trileaflet and appears structurally normal. 12. The mitral valve is normal. 13. Mild mitral regurgitation is present. 14. The tricuspid valve appears structurally normal. 15. Trace tricuspid regurgitation present. 16. Right ventricular systolic pressure is normal at < 35 mmHg. 17. There is no pulmonic regurgitation present. 18. The aortic root size is normal. 19. Normal inferior vena cava with normal inspiratory collapse consistent with estimated right atrial pressure of 5 mmHg. 20. There is no pericardial effusion. SHIP CEILER: Katie Zuleta RDCS
--- NOTE | 2020-01-29 11:43 | PN ---
PROGRESS NOTE Vaughn is a 54-year-old gentleman with history of coronary artery disease, status post prior angioplasty. He presented to the hospital with atypical chest pain and palpitations. The patient has known ischemic cardiomyopathy with an ejection fraction of 45%. He has known stenting of circumflex coronary artery. Since being admitted, he is doing well and is free of significant symptoms. His EKG shows sinus rhythm with evidence of prior inferior wall myocardial infarction. LABS: Show that the troponins are negative. Physical exam is benign and unremarkable. I advised the patient to undergo a stress Cardiolite study. If he has ischemia, he will undergo cardiac catheterization. A detailed consult dictation is going to be dictated by the nurse practitioner on this patient. MMODL / IJN: [id number] /
--- NOTE | 2020-01-29 12:47 | P.CRDCN ---
History of Present Illness Consult date: 01/29/20 Consult reason: chest pain Chief complaint: Chest pain History of present illness: This is a 54-year-old gentleman with history of inferior ST elevation myocardial infarction in 2018 at which time patient underwent circumflex stenting as well as thrombectomy. He did have a third degree heart block on presentation on that admission, required temporary pacemaker. History of hypertension, hyperlipidemia, sleep apnea, paroxysmal atrial fibrillation with prior ablation, prior nicotine dependence, patient states he only smokes an occasional cigar now, history of EtOH. Patient's last echocardiogram with Dopp ler study in 2018 revealed an ejection fraction of 45-50%. He presents to the hospital with atypical pains, he states he just had a funny feeling in his chest but could not describe any symptoms of pressure heaviness, he did have one brief episode of a sharp pain, other than that he felt as though he had a jittery feeling inside like when he drinks too much caffeine. Patient does state that his primary care doctor had started him on a beta danyell approximately 3 weeks ago. His EKG on presentation here showed normal sinus rhythm with inferior Q waves. Chest x-ray did not reveal any active cardiopulmonary disease. Blood pressure 114/70 with a heart rate of 8098% on room air. White blood cell count 12.9, hemoglobin 15.2, platelet count 279. Sodium 138, potassium 4.4, BUN 15, creatinine 0.7. Troponins negative 3. Echocardiogram with Doppler study has been ordered, patient will be seen and evaluated by Dr. Horton, undergo stress Cardiolite today. Past Medical History Past Medical History: Atrial Fibrillation, Coronary Artery Disease (CAD), Myocardial Infarction (RI), Sleep Apnea/CPAP/BIPAP Additional Past Medical History / Comment(s): Inferior wall myocardial infarction/cardiogenic shock/externally paced and short term intubation/vent, tachycardia with cardiac ablation, central sleep apnea-does not tolerate device, occasional low back pain, L arm injury with surgery/limited ROM L hand Last Myocardial Infarction Date:: 01/17/18 History of Any Multi-Drug Resistant Organisms: None Reported Past Surgical History: Back Surgery, Cardiac Ablation, Heart Catheterization With Stent, Orthopedic Surgery Additional Past Surgical History / Comment(s): PCI with stent 01/2018, low back surgery-has 2 rods/4 screws, colonoscopies, left arm injury with surgery. Past Anesthesia/Blood Transfusion Reactions: No Reported Reaction Date of Last Stent Placement:: 01/17/18 Past Psychological History: No Psychological Hx Reported Additional Psychological History / Comment(s): Pt resides with his spouse and adult child. He is independent. He works for [employer]. Smoking Status: Light tobacco smoker Past Alcohol Use History: Occasional Additional Past Alcohol Use History / Comment(s): Pt started smoking in 1988 and quit in January of 2018. Pt states he drinks 3 to 3 beers a day. Occasionally smokes a cigar. Past Drug Use History: None Reported - Past Family History Brother(s) Family Medical History: Myocardial Infarction (RI) Additional Family Medical History / Comment(s): in his 40s of throat cancer. Mother Family Medical History: Cancer, Coronary Artery Disease (CAD) Additional Family Medical History / Comment(s): Mother in her 80s of pancreatic cancer. Father Family Medical History: Cancer Additional Family Medical History / Comment(s): Father at age 54 yrs from mesothelioma. Medications and Allergies Home Medications Medication Instructions Recorded Confirmed Type Atorvastatin [Lipitor] 40 mg PO HS #30 tablet 04/19/18 01/28/20 Rx Aspirin EC [Ecotrin Low Dose] 81 mg PO DAILY 01/28/20 01/28/20 History Metoprolol Succinate [Toprol XL] 25 mg PO DAILY 01/28/20 01/28/20 History Allergies Allergy/AdvReac Type Severity Reaction Status Date / Time No Known Allergies Allergy Verified 01/28/20 17:07 Physical Exam Vitals: Vital Signs Temp Pulse Pulse Resp BP BP Pulse Ox 01/29/20 08:30 98.3 F 84 16 134/85 97 01/29/20 04:00 97.6 F 83 18 114/78 98 01/29/20 00:00 98.1 F 88 18 121/79 95 01/28/20 20:00 98.7 F 85 18 126/82 97 01/28/20 16:00 79 16 01/28/20 15:27 98.5 F 79 16 136/80 98 01/28/20 15:22 97 18 134/88 99 01/28/20 14:26 82 18 121/78 97 01/28/20 13:28 98.2 F 92 16 163/100 98 Intake and Output 01/28/20 01/29/20 01/29/20 22:59 06:59 14:59 Intake Total 871.744 450 187.266 Balance 871.744 450 187.266 Intake: Intake, IV Titration 61.744 187.266 Amount Heparin Sod,Pork in 0.45% 61.744 187.266 NaCl 25,000 unit In 0.45 % NaCl 1 250ml.bag @ 9.2 UNITS/KG/HR 9.932 mls/hr IV .Q24H [facility] Rx#: [id number] Oral 810 450 Other: Voiding Method Toilet Toilet Toilet # Voids 2 Weight 107.955 kg 107.6 kg 107.6 kg PHYSICAL EXAMINATION: GENERAL: 54-year-old gentleman in no acute distress at the time of my examination HEENT: Head is atraumatic, normocephalic. Pupils equal, round. Sclera anicteric. Conjunctiva are clear. Mucous membranes of the mouth are moist. Neck is supple. There is no elevated jugular venous pressure. No carotid bruit is heard. HEART EXAMINATION: Heart S1, S2 normal. No murmur or gallop heard. CHEST EXAMINATION: Lungs are clear to auscultation and precussion. No chest wall tenderness is noted on palpation or with deep breathing. ABDOMEN: Soft, nontender. Bowel sounds are heard. No organomegaly noted. EXTREMITIES: 2+ peripheral pulses with no evidence of peripheral edema and no calf tenderness noted. NEUROLOGIC patient is awake, alert and oriented 3 . Results 01/29/20 02:15 01/29/20 02:15 Cardiac Enzymes 01/28/20 01/28/20 01/28/20 Range/Units 13:42 13:42 20:31 AST 44 (17-59) U/L Troponin I <0.012 <0.012 (0.000-0.034) ng/mL 01/29/20 01/29/20 Range/Units 02:15 02:15 AST 30 (17-59) U/L Troponin I <0.012 (0.000-0.034) ng/mL Coagulation 01/28/20 01/28/20 01/29/20 Range/Units 13:42 20:31 05:22 PT 9.7 (9.0-12.0) sec APTT 22.8 27.2 34.8 H (22.0-30.0) sec Lipids 01/29/20 Range/Units 02:15 Triglycerides 182 H (<150) mg/dL Cholesterol 93 (<200) mg/dL HDL Cholesterol 57 (40-60) mg/dL CBC 01/28/20 01/29/20 Range/Units 13:42 02:15 WBC 12.9 H 10.3 (3.8-10.6) k/uL RBC 4.95 4.38 (4.30-5.90) m/uL Hgb 15.2 13.9 (13.0-17.5) gm/dL Hct 48.0 43.0 (39.0-53.0) % Plt Count 279 236 (150-450) k/uL Comprehensive Metabolic Panel 01/28/20 01/29/20 Range/Units 13:42 02:15 Sodium 137 138 (137-145) mmol/L Potassium 4.6 4.4 (3.5-5.1) mmol/L Chloride 105 110 H (98-107) mmol/L Carbon Dioxide 23 18 L (22-30) mmol/L BUN 16 15 (9-20) mg/dL Creatinine 0.90 0.75 (0.66-1.25) mg/dL Glucose 103 H 106 H (74-99) mg/dL Calcium 9.6 9.1 (8.4-10.2) mg/dL AST 44 30 (17-59) U/L ALT 32 26 (4-49) U/L Alkaline Phosphatase 70 86 (38-126) U/L Total Protein 7.7 6.4 (6.3-8.2) g/dL Albumin 4.8 3.7 (3.5-5.0) g/dL Current Medications Generic Name Dose Route Start Last Admin Trade Name Freq PRN Reason Stop Dose Admin Acetaminophen 650 mg 01/28/20 17:26 Tylenol Tab PO Q6HR PRN Mild Pain or Fever > 100.5 Aspirin 81 mg 01/29/20 09:00 Aspirin PO DAILY [facility] Atorvastatin Calcium 40 mg 01/28/20 21:00 01/28/20 20:03 Lipitor PO 40 mg HS JACQUI Administration Heparin Sodium/Sodium Chloride 250 mls @ 9.932 mls/hr 01/28/20 15:00 01/29/20 10:50 25,000 unit/ Sodium Chloride IV 0 units/kg/hr .Q24H [facility]AC[facility] 0 mls/hr Titration Protocol 9.2 UNITS/KG/HR Lorazepam 1 mg 01/28/20 18:25 Ativan IV Q2HR PRN CIWA 8 or 9 Lorazepam 1 mg 01/28/20 18:25 Ativan IV Q1HR PRN CIWA 10 to 15 Lorazepam 2 mg 01/28/20 18:25 Ativan IV 01/30/20 18:25 Q10M PRN CIWA 16 or higher Melatonin 5 mg 01/28/20 20:28 01/29/20 00:23 Melatonin PO 5 mg HS PRN Administration sleep Metoprolol Succinate 25 mg 01/29/20 09:00 Toprol Xl PO DAILY JACQUI Morphine Sulfate 2 mg 01/28/20 17:26 Morphine Sulfate (Inj) IV Q4HR PRN Severe Pain Naloxone HCl 0.2 mg 01/28/20 17:26 Narcan IV Q2M PRN Opioid Reversal Nitroglycerin 0.4 mg 01/28/20 14:52 Nitrostat SUBLINGUAL Q5M PRN Chest Pain Intake and Output 01/28/20 01/29/20 01/29/20 22:59 06:59 14:59 Intake Total 871.744 450 187.266 Balance 871.744 450 187.266 Intake: Intake, IV Titration 61.744 187.266 Amount Heparin Sod,Pork in 0.45% 61.744 187.266 NaCl 25,000 unit In 0.45 % NaCl 1 250ml.bag @ 9.2 UNITS/KG/HR 9.932 mls/hr IV .Q24H [facility] Rx#: [id number] Oral 810 450 Other: Voiding Method Toilet Toilet Toilet # Voids 2 Weight 107.955 kg 107.6 kg 107.6 kg Patient Weight 01/30/20 06:59 Weight 107.6 kg 01/29/20 02:15 01/29/20 02:15 EKG Interpretations (text) EKG shows a normal sinus rhythm with inferior Q waves Assessment and Plan Plan: Assessment and plan #1 chest pain, atypical symptoms for acute coronary syndrome. Troponins are negative 3. EKG shows a normal sinus rhythm with inferior Q waves, no acute changes noted. #[address] elevation myocardial infarction with circumflex stenting in 2018 #3 hypertension #4 hyperlipidemia #5 sleep apnea #6 prior history of daily nicotine dependence, patient's smokes an occasional cigar now #7 EtOH use, patient drinks 4-5 beers per day Plan We will obtain an echocardiogram with Doppler study, continue baby aspirin and Lipitor and metoprolol. Patient has been advised to undergo stress Cardiolite today, based on the findings of the echo and the stress test further recommendations then will be made. DNP note has been reviewed, I agree with a documented findings and plan of care. Patient was seen and examined.
[2020-01-29] MEDS: METOPROLOL SUCCINATE (ER) 25 MG TAB.ER.24H PO SCH (13:11)
[2020-01-29] MEDS: ASPIRIN 81 MG PO SCH (13:11)
--- NOTE | 2020-01-29 15:11 | NM ---
EXAMINATION TYPE: NM stress cardiolite complete DATE OF EXAM: 01/29/2020 COMPARISON: NONE HISTORY: Chest pain, coronary artery disease TECHNIQUE: After the intravenous administration of 9.8 mCi Tc 99m Sestamibi - Rest images obtained 5 0 minutes post injection. The patient exercised using a PAMELA protocol and 1 minute prior to peak e xercise was injected with 25.9 mCi Tc 99m Sestamibi - Stress images obtained 15 minutes post injectio n. Patient achieved 87% of predicted maximal heart rate. FINDINGS: Targeted heart rate was achieved during performance of the study. Review of stress and rest SPECT latoya ges demonstrates decreased uptake on stress and rest images along the inferolateral left ventricle, s ome suggestion of mild decreased uptake along the lateral wall on stress as compared to rest images. Some mild decreased anteroseptal uptake is noted on stress as compared to rest images towards the ap ex, mild decreased uptake along anterior wall O on stress as compared to rest images more towards the base of the heart. Gated analysis shows decreased wall motion with an estimated left ventricular eje ction fraction of 37 %. IMPRESSION: Areas of stress-induced left ventricular myocardial ischemia at also prior infarct and casa-infarct s tress-induced ischemia as described. Ejection fraction calculated at 37%,
--- NOTE | 2020-01-29 15:20 | EST ---
EXERCISE STRESS AGE: 54 SEX: M HT: 5'10" WT: 234 lbs. PROTOCOL: Cardiolite Marvel STAGE: 3 DURATION OF EXERCISE: 8:12 HEART RATE REST: 74 BLOOD PRESSURE REST: 125/88 MAXIMUM HEART RATE ACHIEVED: 144 MAXIMUM BLOOD PRESSURE: 146/80 85% MPHR: 142 100% MPHR: 167 METS: INDICATIONS: Chest pressure. CLINICAL INFORMATION: Baseline EKG revealed a normal sinus rhythm without significant ST-T changes. There were Q-waves noted in the inferior leads, possibility of old inferior WA cannot be excluded. The patient walked on a standard Marvel protocol for a total duration of 8 minutes 12 seconds, achieved a maximal heart rate of 144 beats per minute which is more than 85% of predicted maximal. He developed fatigue and shortness of breath but did not have any angina or arrhythmia. EKG did not reveal any ST-segment changes to indicate ischemia. By EKG criteria, this is considered as a negative stress test with fair exercise capacity. There was no angina or arrhythmia. The nuclear scan results, which are more pertinent will be reported by the radiologist. IMPRESSION: 1. Fair exercise capacity. Negative stress test by EKG criteria. 2. The nuclear scan results which are more pertinent will be reported by the radiologist. MMODL / IJN: [id number] /
--- NOTE | 2020-01-29 16:46 | P.PN ---
Subjective Progress Note Date: 01/29/20 Principal diagnosis: Chest pain Patient was seen and examined. No acute events overnight. Patient reports complete resolution of his symptoms. He denies any chest pain, shortness breath or palpitations. No nausea or vomiting. No fever or chills. Objective - Vital Signs Vital signs: Vital Signs Temp 98.9 F 01/29/20 16:00 Pulse 80 01/29/20 16:00 Resp 18 01/29/20 16:00 BP 127/93 01/29/20 16:00 Pulse Ox 97 01/29/20 16:00 Intake & Output 01/28/20 01/29/20 01/29/20 18:59 06:59 18:59 Intake Total 360 961.744 217.266 Balance 360 961.744 217.266 Weight 107.955 kg 107.6 kg 107.6 kg Intake: IV 30 Heparin Sod,Pork in 0.45% 30 NaCl 25,000 unit In 0.45 % NaCl 1 250ml.bag @ 9.2 UNITS/KG/HR 9.932 mls/hr IV .Q24H [facility] Rx#: [id number] Intake, IV Titration 61.744 187.266 Amount Heparin Sod,Pork in 0.45% 61.744 187.266 NaCl 25,000 unit In 0.45 % NaCl 1 250ml.bag @ 9.2 UNITS/KG/HR 9.932 mls/hr IV .Q24H [facility] Rx#: [id number] Oral 360 900 Other: Voiding Method Toilet Toilet # Voids 2 1 - Exam General: [non toxic], [no distress], [appears at stated age] Derm: [warm], [dry] Head: [atraumatic], [normocephalic], [symmetric] Eyes: [EOMI], [no lid lag], [anicteric sclera] Mouth: [no lip lesion], [mucus membranes moist] Cardiovascular: [S1S2 reg], [no murmur], [positive DT pulse bilateral], Lungs: [CTA bilateral], [no rhonchi, no rales] , [no accessory muscle use] Abdominal: [soft], [ nontender to palpation], [no guarding], [no appreciable organomegaly] Ext: [no gross muscle atrophy], [no edema], [no contractures] Neuro: [no focal neuro deficits] Psych: [Alert], [oriented], [appropriate affect] - Labs CBC & Chem 7: 01/29/20 02:15 01/29/20 02:15 Labs: Abnormal Lab Results - Last 24 Hours (Table) 01/29/20 01/29/20 Range/Units 02:15 05:22 APTT 34.8 H (22.0-30.0) sec Chloride 110 H (98-107) mmol/L Carbon Dioxide 18 L (22-30) mmol/L Glucose 106 H (74-99) mg/dL Triglycerides 182 H (<150) mg/dL Assessment and Plan Assessment: Palpitations and chest pain with history of CAD Paroxysmal atrial fibrillation post ablation Hypertension Dyslipidemia Sleep apnea Chronic alcohol abuse Nicotine addiction Obesity with BMI 34.1 Patient's palpitations and vague chest pain is not consistent with ACS. He does however have multiple risk factors including smoking, history of severe CAD, hypertension, dyslipidemia and chronic alcohol abuse. Troponin was less than 0.012x3 with EKG showing normal sinus rhythm with T-wave inversions. Chest x- ray was negative. His DELIA risk score is 3. Echocardiogram shows EF 45-50% with hypokinetic wall motion. Plans: Discontinue heparin drip. Continue aspirin and Lipitor. Start metoprolol. ACS ruled out. Stress test shows exercise induced ischemia. Telemetry monitoring. Follow cardiology consultation. Not seen currently. Plans: Previously was on anticoagulation which was discontinued by his revenue coordinator. Continue metoprolol. Cardiology to determine anticoagulation. Keep potassium greater than 4 and magnesium greater than 2. Telemetry monitoring. Cardiology on board. BP 127/93. Plans: Continue metoprolol. Monitor vitals, adjust medications as necessary. Plans: Continue Lipitor. Follow lipid panel. Patient reports central and obstructive sleep apnea. Used to follow pulmonology. Plans: Follow-up in the outpatient setting. 2-3 beers daily. Patient denies alcohol withdrawal symptoms. Plans: CIWA protocol. Ativan as needed. Plans: Offered nicotine patch. Plans: Patient would benefit from structured weight loss program. [Patient admitted for chest pain and palpitations. Stress test performed. Reversible ischemia. Cardiology on board. Likely DC in 2-3 days.]
[2020-01-29] MEDS ORDERED: NICOTINE PO PRN (18:57)
[2020-01-29] MEDS: HEPARIN SOD,PORK IN 0.45% NACL 25,000 UNIT in 0.45% NACL 1 250ML.BAG IV SCH (19:55)
[2020-01-29] MEDS: ATORVASTATIN 40 MG TAB PO SCH (20:02)
[2020-01-29] MEDS: HEPARIN SODIUM,PORCINE 5,000 UNIT/ML 1 ML VIAL SQ SCH (20:02)
[2020-01-30] MEDS ORDERED: ALPRAZolam 0.5 MG TAB PO PRN (08:30)
[2020-01-30] MEDS ORDERED: SODIUM CHLORIDE 0.9% 1,000 ML in EMPTY BAG 1 BAG IV ONE (08:30)
[2020-01-30] MEDS ORDERED: ALPRAZolam 0.25 MG TAB PO PRN (08:30)
[2020-01-30] MEDS ORDERED: NITROGLYCERIN SL TABS 0.4 MG TAB SUBLINGUAL PRN (08:30)
[2020-01-30] MEDS ORDERED: ATORVASTATIN 80 MG TAB PO STA (08:30)
[2020-01-30] MEDS ORDERED: ASPIRIN 325 MG TAB PO STA (08:30)
[2020-01-30] MEDS: ASPIRIN 81 MG PO SCH (09:00)
[2020-01-30] MEDS: METOPROLOL SUCCINATE (ER) 25 MG TAB.ER.24H PO SCH (09:00)
[2020-01-30] MEDS: HEPARIN SODIUM,PORCINE 5,000 UNIT/ML 1 ML VIAL SQ SCH (09:00)
--- NOTE | 2020-01-30 10:16 | P.DS ---
Providers Date of admission: 01/29/20 15:25 Expected date of discharge: 01/30/20 Attending physician: Ubaldo Zapata MD Consults: 01/28/20 14:52 Consult Physician Urgent Consulting Provider: Devin Bryant Consult Reason/Comments: chest pain Do you want consulting provider notified?: Yes Primary care physician: [place] [facility] Course: 54-year-old male with PMH of CAD with history of ST elevation [place] in the past along with third degree AV block that resolved with revascularization and cardiogenic shock with a history of intubation in 2018, paroxysmal atrial fi brillation post ablation, obstructive and central sleep apnea, hypertension, dyslipidemia, [id number] smoking history quit in 2018, daily alcohol use presents the ED for chest discomfort and palpitations. Patient reports a 2 day history of palpitations that have been occurring intermittently. He has experienced this sensation 5 times in the past 2 days. Each episode lasts for about 15 minutes. Patient reports some anxiety 2018 after a prolonged hospital course for STEMI. He reports drinking 2-4 cups of coffee every day. Patient reports nicotine lozenges and the occasional cigar. He reports drinking 3-4 bottles of beer on a daily basis. Patient reports chest discomfort that started during his palpitations today. Patient describes this as pressure-like and is unable to describe it any further. Patient states that the symptoms are not typical of what he experienced in 2018. He had previously taken aspirin, Plavix, metoprolol and a blood thinner in 2018 that was stopped by his administrative support assoc Dr. Sosa after 6 months-1 year (patient is unsure of timing). His PCP did notice that his blood pressure has been increasing more recently and he was restarted back on his metoprolol 1 week ago. Patient denies any headaches, lower extremity edema, nausea or vomiting, fever or chills, cough, shortness of breath, changes in urination or bowel habits. No changes in appetite or weight. He denies any dizziness, numbness/weakness/tingling of the extremities. In the ED, his vital signs were stable. CBC showed leukocytosis of 12.9 with neutrophilia. INR was 0.9. CMP showed glucose of 103. Troponin was less than 0.012 with EKG showing normal sinus rhythm and inferior and T-wave inversions. Patient started on a heparin drip and admitted for chest pain, rule out acute coronary syndrome with cardiology consultation. Patient's palpitations and vague chest pain is not consistent with ACS. He did have however have multiple risk factors including smoking, history of severe C AD, hypertension, dyslipidemia and chronic alcohol abuse. Troponin was less than 0.012x3 with EKG showing normal sinus rhythm with T-wave inversions. His DELIA risk score was 3. He was initially started on a heparin drip which was discontinued. He was continued on aspirin and Lipitor along with metoprolol. Cardiology was consulted and recommended stress test. Stress test was positive for reversible ischemia. Cardiology planned for cardiac catheterization which was pending at the time of this note. Echocardiogram was done which showed EF 45-50% with hypokinetic wall motion. Otherwise, he was placed on CIWA protocol and given Ativan as needed for chronic alcohol use. Patient was seen and examined this morning. No acute events overnight. Patient denies any chest pain, shortness of breath or palpitations. No nausea or vomiting. No fever or chills. He has complete resolution of his symptoms. General: [non toxic], [no distress], [appears at stated age] Derm: [warm], [dry] Head: [atraumatic], [normocephalic], [symmetric] Eyes: [EOMI], [no lid lag], [anicteric sclera] Mouth: [no lip lesion], [mucus membranes moist] Cardiovascular: [S1S2 reg], [no murmur], [positive DT pulse bilateral], Lungs: [CTA bilateral], [no rhonchi, no rales] , [no accessory muscle use] Abdominal: [soft], [ nontender to palpation], [no guarding], [no appreciable organomegaly] Ext: [no gross muscle atrophy], [no edema], [no contractures] Neuro: [no focal neuro deficits] Psych: [Alert], [oriented], [appropriate affect] Palpitations and chest pain with history of CAD Paroxysmal atrial fibrillation post ablation Hypertension Dyslipidemia Sleep apnea Chronic alcohol abuse Nicotine addiction Obesity with BMI 34.1 Patient's palpitations and vague chest pain is not consistent with ACS. He does however have multiple risk factors including smoking, history of severe CAD, hypertension, dyslipidemia and chronic alcohol abuse. Troponin was less than 0.012x3 with EKG showing normal sinus rhythm with T-wave inversions. Chest x- ray was negative. His DELIA risk score is 3. Echocardiogram shows EF 45-50% with hypokinetic wall motion. Plans: Discontinue heparin drip. Continue aspirin and Lipitor. Start metoprolol. ACS ruled out. Stress test shows exercise induced ischemia. Telemetry monitoring. Plans for cardiac c atheterization today. Not seen currently. Plans: Previously was on anticoagulation which was discontinued by his administrative support assoc. Continue metoprolol. Cardiology to determine anticoagulation. Keep potassium greater than 4 and magnesium greater than 2. Telemetry monitoring. Cardiology on board. BP 118/81. Plans: Continue metoprolol. Monitor vitals, adjust medications as necessary. Plans: Continue Lipitor. Follow lipid panel. Patient reports central and obstructive sleep apnea. Used to follow pulmonology. Plans: Follow-up in the outpatient setting. 2-3 beers daily. Patient denies alcohol withdrawal symptoms. Plans: CIWA protocol. Ativan as needed. Plans: Offered nicotine patch. Plans: Patient would benefit from structured weight loss program. [Patient admitted for chest pain and palpitations. Plans for cardiac catheterization today. Discharge planning depending on catheterization results and cardiology recommendations. Likely DC in 1-2 days.] Pertinent Studies: Chest x-ray, echocardiogram, stress test Procedures: Cardiac catheterization Patient Condition at Discharge: Stable Plan - Discharge Summary Discharge Rx Participant: No New Discharge Prescriptions: New Nitroglycerin Sl Tabs [Nitrostat] 0.4 mg SUBLINGUAL Q5M PRN #14 tab PRN Reason: Chest Pain Continue Atorvastatin [Lipitor] 40 mg PO HS #30 tablet Metoprolol Succinate [Toprol XL] 25 mg PO DAILY Aspirin EC [Ecotrin Low Dose] 81 mg PO DAILY Discharge Medication List Atorvastatin [Lipitor] 40 mg PO HS #30 tablet 04/19/18 [Rx] Aspirin EC [Ecotrin Low Dose] 81 mg PO DAILY 01/28/20 [History] Metoprolol Succinate [Toprol XL] 25 mg PO DAILY 01/28/20 [History] Nitroglycerin Sl Tabs [Nitrostat] 0.4 mg SUBLINGUAL Q5M PRN #14 tab 01/30/20 [Rx] Follow up Appointment(s)/Referral(s): Darya Salamanca MD [Primary Care Provider] - 1-2 days Master Quintanilla MD [STAFF PHYSICIAN] - 1 Week Activity/Diet/Wound Care/Special Instructions: Diet: Cardiac Follow-up PCP within 3 days of discharge. Follow-up with cardiology within 1 week of discharge. Take all medications as advised. Come back to the ED or call 911 for worsening chest pain, shortness of breath, palpitations or dizziness. Discharge Disposition: HOME SELF-CARE
--- NOTE | 2020-01-30 12:41 | P.PN ---
Subjective Progress Note Date: 01/30/20 This is a 54-year-old gentleman with history of inferior ST elevation myocardial infarction in 2018 at which time patient underwent circumflex stenting as well as thrombectomy. He did have a third degree heart block on presentation on that admission, required temporary pacemaker. History of hy pertension, hyperlipidemia, sleep apnea, paroxysmal atrial fibrillation with prior ablation, prior nicotine dependence, patient states he only smokes an occasional cigar now, history of EtOH. Patient's last echocardiogram with Doppler study in 2018 revealed an ejection fraction of 45-50%. He presents to the hospital with atypical pains, he states he just had a funny feeling in his chest but could not describe any symptoms of pressure heaviness, he did have one brief episode of a sharp pain, other than that he felt as though he had a jittery feeling inside like when he drinks too much caffeine. Patient does state that his primary care doctor had started him on a beta danyell approximately 3 weeks ago. His EKG on presentation here showed normal sinus rhythm with inferior Q waves. Chest x-ray did not reveal any active cardiopulmonary disease. Blood pressure 114/70 with a heart rate of 8098% on room air. White blood cell count 12.9, hemoglobin 15.2, platelet count 279. Sodium 138, potassium 4.4, BUN 15, creatinine 0.7. Troponins negative 3. Echocardiogram with Doppler study has been ordered, patient will be seen and evaluated by Dr. Bobo, undergo stress Cardiolite today. 01/30/2020 Patient underwent a stress Cardiolite today, it showed areas of stress induced left ventricular myocardial ischemia and also prior infarction. Infarct stress- induced ischemia. Because of the abnormality noted patient wa echocardiogram with Doppler study was performed which revealed an ejection fraction of 45-50%. s advised to undergo cardiac catheterization, the risks and the benefits were explained to the patient in detail and he is willing to proceed. This will be performed today by Dr. Sosa. Blood pressure 130/80 with a heart rate of 80, 97% on room air. Objective - Vital Signs Vital signs: Vital Signs Temp 98 F 01/30/20 08:00 Pulse 80 01/30/20 08:00 Resp 18 01/30/20 08:00 BP 131/84 01/30/20 08:00 Pulse Ox 97 01/30/20 08:00 Intake & Output 01/29/20 01/30/2001/29/20 18:59 06:59 18:59 Intake Total 457.266 Balance 457.266 Weight 107.6 kg 106.9 kg Intake: IV 30 Heparin Sod,Pork in 0.45% 30 NaCl 25,000 unit In 0.45 % NaCl 1 250ml.bag @ 9.2 UNITS/KG/HR 9.932 mls/hr IV .Q24H JACQUI Rx#: [id number] Intake, IV Titration 187.266 Amount Heparin Sod,Pork in 0.45% 187.266 NaCl 25,000 unit In 0.45 % NaCl 1 250ml.bag @ 9.2 UNITS/KG/HR 9.932 mls/hr IV .Q24H JACQUI Rx#: [id number] Oral 240 Other: Voiding Method Toilet Toilet Toilet # Voids 1 1 - Exam PHYSICAL EXAMINATION: GENERAL: 54-year-old gentleman in no acute distress at the time of my examination HEENT: Head is atraumatic, normocephalic. Pupils equal, round. Sclera anicteric. Conjunctiva are clear. Mucous membranes of the mouth are moist. Neck is supple. There is no elevated jugular venous pressure. No carotid bruit is heard. HEART EXAMINATION: Heart S1, S2 normal. No murmur or gallop heard. CHEST EXAMINATION: Lungs are clear to auscultation and precussion. No chest wall tenderness is noted on palpation or with deep breathing. ABDOMEN: Soft, nontender. Bowel sounds are heard. No organomegaly noted. EXTREMITIES: 2+ peripheral pulses with no evidence of peripheral edema and no calf tenderness noted. NEUROLOGIC patient is awake, alert and oriented 3 . . - Labs CBC & Chem 7: 01/29/20 02:15 01/29/20 02:15 Assessment and Plan Plan: Assessment and plan #1 chest pain, atypical symptoms for acute coronary syndrome. Troponins are negative 3. EKG shows a normal sinus rhythm with inferior Q waves, no acute changes noted. #[address] elevation myocardial infarction with circumflex stenting in 2018 #3 hypertension #4 hyperlipidemia #5 sleep apnea #6 prior history of daily nicotine dependence, patient's smokes an occasional cigar now #7 EtOH use, patient drinks 4-5 beers per day Plan Stress Cardiolite from today came back positive for reversible ischemia, patient hence was advised to undergo cardiac catheterization, the risks and the benefits explained to him in detail. This will be performed today by Dr. Sosa and further recommendations will be made based on the findings and the patient's overall clinical course. DNP note has been reviewed, I agree with a documented findings and plan of care. Patient was seen and examined.
[2020-01-30] MEDS ORDERED: MIDAZOLAM 2 MG/2 ML VIAL IVP ONE (13:31)
[2020-01-30] MEDS ORDERED: HYDROmorphone 1 MG/ML 1 ML SYRINGE IVP ONE (13:44)
[2020-01-30] MEDS ORDERED: SODIUM CHLORIDE 0.9% 1,000 ML IV ONE (13:44)
[2020-01-30] MEDS ORDERED: LIDOCAINE 1% INJ 10MG/ML (20 ML MDV) SQ ONE (13:44)
[2020-01-30] MEDS ORDERED: VERAPAMIL SYRINGE (5 MG/10 ML) INTRAARTER ONE (13:45)
[2020-01-30] MEDS ORDERED: HEPARIN SODIUM 1,000 UN/ML (10ML VL) IV ONE (13:49)
[2020-01-30] MEDS ORDERED: IOPAMIDOL-370 125ML BTL INJ ONE (13:54)
[2020-01-30] MEDS ORDERED: RX INFO: IV CONTRAST WAS GIVEN 1 EACH MISC MISCELLANE PRN (13:57)
[2020-01-30] MEDS ORDERED: SODIUM CHLORIDE 0.9% 1,000 ML IV SCH (14:00)
[2020-01-30 15:09] VITALS: PULSE 80; RESP 16; TEMP 98
[2020-01-30 18:17] VITALS: BP 146/79
--- NOTE | 2020-01-30 18:48 | CC ---
CARDIAC CATHETERIZATION REPORT DATE OF SERVICE: 01/30/2020 PERFORMING PHYSICIAN: Devin Bryant M.D. PROCEDURES PERFORMED: 1. Selective right and left coronary angiogram. 2. Left heart catheterization. INDICATION: This is a very pleasant 54-year-old gentleman with coronary artery disease and prior stenting of the left circumflex which was performed in the setting of acute coronary syndrome and known mild to moderate disease involving the left anterior descending artery. He was admitted to the hospital with chest discomfort concerning for angina. Heart catheterization was advised. APPROACH: Right radial artery. COMPLICATIONS: None. LEVEL OF SEDATION: Moderate, with sedation length of 16 minutes. PROCEDURE DESCRIPTION: After obtaining informed consent, the patient was brought to the cardiac laborer rags. The right radial artery was cannulated using micropuncture technique. The micropuncture wire passed easily. Then I placed a 6-Indian sheath at the right radial artery. Subsequently I gave the patient 2 mg of verapamil IA and 10,000 units of heparin IV. Selective right and left coronary angiogram was performed using JR4 and JL3.5 catheters. Left heart catheterization was performed using the JR4 catheter, which crossed the aortic valve. Then I did pull back across the valve. The procedure was completed without any complication. SELECTIVE CORONARY ANGIOGRAM: 1. Right coronary artery is a medium-caliber vessel, a nondominant vessel, and appeared to be angiographically normal. 2. The left main is a large-caliber vessel. It is angiographically normal. It bifurcates into left circumflex and left anterior descending artery. 3. The LCX is a large-caliber vessel. It is a dominant vessel. The proximal LCX appeared to be normal. The mid LCX is stented and the stent is patent. The LCX in the mid portion gives rise to an OM1 which is a large-caliber vessel. It bifurcates into 2 subbranches and OM1 appeared to be angiographically normal. The circumflex after that appeared to be angiographically normal. It distally bifurcates into PDA and PLV branches. Both appeared to be angiographically normal. 4. The LAD. The proximal LAD appeared to have mild disease only. The mid LAD is normal and the LAD distally appeared to be angiographically normal. The LAD gives rise to 3 diagonal branches. They all appeared to be angiographically normal. HEMODYNAMICS: The LVEDP was about 18 mmHg without significant gradient across the aortic valve. CONCLUSION: 1. Dominant left coronary system. 2. Patent stent in the mid left circumflex coronary artery. 3. Mild to moderate nonobstructive disease involving the proximal left anterior descending artery. 4. Elevated left ventricular end-diastolic pressure. POST-PROCEDURE MANAGEMENT: 1. Maximize medical treatment. 2. Aggressive cholesterol control. 3. Follow up with the patient. MMODL / IJN: [id number] /
--- NOTE | 2020-01-31 12:33 | CDI ---
Documentation Clarification Form Date: 01/31/20 From: Amanda Medeiros CCS Phone: If you have a question about this query, please contact Paige Casillas, Business Office Technician at [phone] between 8am and 5pm. Admit Date: 01/29/20 Discharge Date:01/30/20 Patient Name: Vaughn Hernandez Visit Number: [id number] ATTENTION: The Clinical Documentation Specialists (CDI) and [facility] Coding Staff appreciate your assistance in clarifying documentation. Please respond to the clarification below the line at the bottom and electronically sign. The CDI & [facility] Coding staff will review the response and follow-up if needed. Please note: Queries are made part of the Legal Health Record. If you have any questions, please contact the author of this message via ITS. Dear Dr. Zapata, Chest pain is documented in the ED, H&P, PNs, DS. Patient C/O: Palpitations and chest pain History/Risk factors: CAD, Hx PTCA w/ stent, HX OK, Cardiomyopathy, TONIO, AFIB Clinical Indicators: Palpitations, Chest pain Labs: Troponin 0.012 Treatment: Cardiac Cath- nonobstructive disease- maximize medical treatment- Consults: Jihan In your professional opinion, can please clarify if the chest pain signifies, or is due to: CAD with angina (specify vessel and type of angina if known) Cardiac arrhythmias (specify type if known) Chest wall pain Costochondritis Anxiety Psychogenic chest pain Other condition, please specify Unable to determine unable to determine, nonexertional MTDD
== END 2020-01-30 18:55 | disposition home or self-care (01) | DRG 287 ==
LOC: EC 13:27 → 3SCARD 14:53 → OBSVTOIN 01-29 15:25
PROVIDERS: ADMIT Family Medicine; ATTEND Family Medicine
PROC: B2111ZZ Fluoroscopy of Multiple Coronary Arteries using Low Osmolar Contrast (ICD-10-PCS; 2020-01-30)
PROC: 4A023N7 Measurement of Cardiac Sampling and Pressure, Left Heart, Percutaneous Approach (ICD-10-PCS; principal; 2020-01-30 11:20)
DX: R07.89 Other chest pain (principal); Z11.59 Encounter for screening for other viral diseases; I48.0 Paroxysmal atrial fibrillation; I25.10 Atherosclerotic heart disease of native coronary artery without angina pectoris; I25.5 Ischemic cardiomyopathy; G47.31 Primary central sleep apnea; I10 Essential (primary) hypertension; E78.5 Hyperlipidemia, unspecified; D72.829 Elevated white blood cell count, unspecified; G47.33 Obstructive sleep apnea (adult) (pediatric); F41.9 Anxiety disorder, unspecified; F17.290 Nicotine dependence, other tobacco product, uncomplicated; F10.10 Alcohol abuse, uncomplicated; E66.9 Obesity, unspecified; I25.2 Old myocardial infarction; Z68.34 Body mass index [BMI] 34.0-34.9, adult; Z79.82 Long term (current) use of aspirin; Z79.899 Other long term (current) drug therapy; Z95.5 Presence of coronary angioplasty implant and graft; Z87.828 Personal history of other (healed) physical injury and trauma; Z98.890 Other specified postprocedural states; Z82.49 Family history of ischemic heart disease and other diseases of the circulatory system; Z80.8 Family history of malignant neoplasm of other organs or systems; Z80.0 Family history of malignant neoplasm of digestive organs
CPT/HCPCS: 36415; 71046; 78452; 80053; 80061; 83690; 83735; 84484; 85025; 85610; 85730; 87635; 93017; 93306; 93458; 96374; 99285

== ENCOUNTER 2021-09-16 03:12 | Emergency (ER) | payer BC ==
[2021-09-16 05:31] LABS: Appearance,Urine Clear (Clear); Bilirubin,Urine Negative (Negative); Blood,Urine Trace (Negative); Color,Urine Light Yellow; Glucose,Urine (UA) Negative (Negative); Ketones,Urine Negative (Negative); Leukocyte Esterase,Urine Negative (Negative); Mucus,Urine Rare /hpf; Nitrite,Urine Negative (Negative); PH, Urine 5.5 (5.0-8.0); Protein,Urine Negative (Negative); RBC,Urine 1 /hpf (0-5); Specific Gravity,Urine 1.006 (1.001-1.035); Urobilinogen,Urine <2.0 mg/dL (<2.0); WBC,Urine <1 /hpf (0-5)
[2021-09-16 07:39] VITALS: BP 133/88; PULSE 82; RESP 16; TEMP 97.5
--- NOTE | 2021-09-16 07:48 | CT ---
EXAMINATION TYPE: CT abdomen pelvis wo con DATE OF EXAM: 09/16/2021 HISTORY: right flank pain. best images possible as pt. had shoulder surgery yesterday and barely fit in the gantry with his brace on. CT DLP: 1190.4 mGycm. Automated Exposure Control for Dose Reduction was Utilized. TECHNIQUE: CT scan of the abdomen and pelvis is performed without oral or IV contrast. COMPARISON: CT abdomen and pelvis February 13, 2019 FINDINGS: Within the limitations of a non-contrast study, the following observations are made. Subop timal study due to motion artifact. LUNG BASES: New Fairly moderate linear and somewhat thickened atelectatic change possible organizing consolidation in the right lung base. Some respiratory motion artifact degradation. Scattered mild ar eas of opacity favor atelectatic change bilaterally. More elevated right hemidiaphragm on current nicole dy. Mild subcutaneous edema over the right lower thorax. LIVER/GB: Gallbladder is now surgically absent. No suspicious biliary dilatation. PANCREAS: No significant abnormality is seen. SPLEEN: No significant abnormality is seen. ADRENALS: No significant abnormality is seen. KIDNEYS: Mildly distended bladder. No renal calculi or hydronephrosis seen bilaterally. BOWEL: No stefani picious small or large bowel dilatation. GENITAL ORGANS: Normal size prostate with adjacent scattered pelvic phleboliths. LYMPH NODES: No greater than 1cm abdominal or pelvic lymph nodes are appreciated. OSSEOUS STRUCTURES: Postsurgical change L4-L5 level redemonstrated. Stable grade 1 anterolisthesis L4 on L5. Moderate axial joint space loss in both hips redemonstrated. OTHER: Mild calcified plaque of the aorta extends into branch vessels. IMPRESSION: No renal stones or hydronephrosis is seen bilaterally. Atelectatic changes right lung bas e otherwise no findings evident on noncontrast CT to account for patient's symptoms
--- NOTE | 2021-09-16 07:52 | ED ---
Back Pain HPI - General Chief Complaint: Back Pain/Injury Stated Complaint: Low Back Pain Time Seen by Provider: 09/16/21 03:55 Source: patient Limitations: no limitations - History of Present Illness MD Complaint: back pain -: hour(s) Similar Symptoms Previously: Yes Place: home Radiation: none Severity: moderate Quality: aching Consistency: constant Improves With: none Worsens With: none Context: other Associated Symptoms: other - Related Data Home Medications Medication Instructions Recorded Confirmed Aspirin EC [Ecotrin Low Dose] 81 mg PO DAILY 01/28/20 01/28/20 Metoprolol Succinate [Toprol XL] 25 mg PO DAILY 01/28/20 01/28/20 Previous Rx's Medication Instructions Recorded Atorvastatin [Lipitor] 40 mg PO HS #30 tablet 04/19/18 Nitroglycerin Sl Tabs [Nitrostat] 0.4 mg SUBLINGUAL Q5M PRN #14 tab 01/30/20 Allergies Allergy/AdvReac Type Severity Reaction Status Date / Time No Known Allergies Allergy Verified 09/16/21 03:30 Review of Systems ROS Statement: Those systems with pertinent positive or pertinent negative responses have been documented in the HPI. ROS Other: All systems not noted in ROS Statement are negative. Constitutional: Denies: fever, chills, weakness Respiratory: Denies: cough, dyspnea Cardiovascular: Denies: chest pain, palpitations Gastrointestinal: Denies: abdominal pain, vomiting Genitourinary: Denies: dysuria, hematuria Musculoskeletal: Reports: back pain Skin: Denies: rash Neurological: Denies: headache, weakness, numbness Past Medical History Past Medical History: Atrial Fibrillation, Coronary Artery Disease (CAD), Myocardial Infarction ([place]), Sleep Apnea/CPAP/BIPAP Additional Past Medical History / Comment(s): Inferior wall myocardial infarction/cardiogenic shock/externally paced and short term intubation/vent, tachycardia with cardiac ablation, central sleep apnea-does not tolerate device, occasional low back pain, L arm injury with surgery/limited ROM L hand Last Myocardial Infarction Date:: 01/17/18 History of Any Multi-Drug Resistant Organisms: None Reported Past Surgical History: Back Surgery, Cardiac Ablation, Heart Catheterization With Stent, Orthopedic Surgery Additional Past Surgical History / Comment(s): PCI with stent 01/2018, low back surgery-has 2 rods/4 screws, colonoscopies, left arm injury with surgery. Past Anesthesia/Blood Transfusion Reactions: No Reported Reaction Date of Last Stent Placement:: 01/17/18 Past Psychological History: No Psychological Hx Reported Smoking Status: Current every day smoker Past Alcohol Use History: Occasional Past Drug Use History: None Reported - Past Family History Brother(s) Family Medical History: Myocardial Infarction ([place]) Additional Family Medical History / Comment(s): in his 40s of throat cancer. Mother Family Medical History: Cancer, Coronary Artery Disease (CAD) Additional Family Medical History / Comment(s): Mother in her 80s of pancreatic cancer. Father Family Medical History: Cancer Additional Family Medical History / Comment(s): Father at age 54 yrs from mesothelioma. General Exam Limitations: no limitations General appearance: alert, in no apparent distress Head exam: Present: atraumatic, normocephalic Eye exam: Present: normal appearance Neck exam: Present: normal inspection, full ROM Respiratory exam: Present: normal lung sounds bilaterally. Absent: respiratory distress, wheezes, rales, rhonchi, stridor Cardiovascular Exam: Present: regular rate, normal rhythm, normal heart sounds. Absent: systolic murmur, diastolic murmur, rubs, gallop GI/Abdominal exam: Present: soft. Absent: distended, tenderness, guarding, rebound, rigid, mass Extremities exam: Present: normal inspection, normal capillary refill. Absent: pedal edema, calf tenderness Back exam: Present: normal inspection. Absent: CVA tenderness (R), CVA tenderness (L), vertebral tenderness Neurological exam: Present: alert Skin exam: Present: warm, dry, intact, normal color. Absent: rash Course Vital Signs 09/16/21 09/16/21 03:23 07:20 Temperature 97.8 F 97.5 F L Pulse Rate 96 82 Respiratory 20 16 Rate Blood Pressure 140/86 133/88 O2 Sat by Pulse 98 96 Oximetry Medical Decision Making - Lab Data Lab Results 09/16/21 Range/Units 05:10 Urine Color Light Yellow Urine Appearance Clear (Clear) Urine pH 5.5 (5.0-8.0) Ur Specific [place] 1.006 (1.001-1.035) Urine Protein Negative (Negative) Urine Glucose (UA) Negative (Negative) Urine Ketones Negative (Negative) Urine Blood Trace H (Negative) Urine Nitrite Negative (Negative) Urine Bilirubin Negative (Negative) Urine Urobilinogen <2.0 (<2.0) mg/dL Ur Leukocyte Esterase Negative (Negative) Urine RBC 1 (0-5) /hpf Urine WBC <1 (0-5) /hpf Urine Mucus Rare H (None) /hpf Disposition Clinical Impression: Mechanical back pain Disposition: HOME SELF-CARE Condition: Good Instructions (If sedation given, give patient instructions): Acute Low Back Pain (ED) Is patient prescribed a controlled substance at d/c from ED?: No Referrals: Darya Salamanca MD [Primary Care Provider] - 1-2 days
== END 2021-09-16 08:01 | disposition home or self-care (01) ==
LOC: EC 03:12
DX: M54.9 Dorsalgia, unspecified (principal); I48.91 Unspecified atrial fibrillation; I25.10 Atherosclerotic heart disease of native coronary artery without angina pectoris; I25.2 Old myocardial infarction; F17.200 Nicotine dependence, unspecified, uncomplicated; Z79.82 Long term (current) use of aspirin
CPT/HCPCS: 74176; 81001; 99284

== ENCOUNTER 2021-12-23 07:02 | Observation (INO) | payer BC ==
[2021-12-23] MEDS ORDERED: NITROGLYCERIN OINT 1 INCH/GM PACKET TOPICAL STA (07:32)
[2021-12-23] MEDS ORDERED: HEPARIN SODIUM 1,000 UN/ML (10ML VL) IV ONE (07:33)
[2021-12-23 07:54] LABS: Basophils % (A) 0 %; Eosinophils # (A) 0.3 k/uL (0-0.7); Eosinophils % (A) 3 %; HCT 47.7 % (39.0-53.0); HGB 15.9 gm/dL (13.0-17.5); Lymphocytes # (A) 1.7 k/uL (1.0-4.8); Lymphocytes % (A) 16 %; MCH 32.8 pg (25.0-35.0); MCHC 33.4 g/dL (31.0-37.0); Mean Platelet Volume 7.5; Monocytes # (A) 0.4 k/uL (0-1.0); Monocytes % (A) 4 %; Neutrophils # (A) 7.5 k/uL (1.3-7.7); Neutrophils % (A) 74 %; Platelet Count 233 k/uL (150-450); RBC 4.87 m/uL (4.30-5.90); RDW 13.9 % (11.5-15.5); WBC 10.1 k/uL (3.8-10.6)
--- NOTE | 2021-12-23 07:59 | ED ---
General Adult HPI - General Chief complaint: Chest Pain Stated complaint: Chest pain Time Seen by Provider: 12/23/21 07:05 Source: patient, RN notes reviewed, old records reviewed Mode of arrival: wheelchair Limitations: no limitations - History of Present Illness Initial comments: This is a 56-year-old male who presents emergency Department with the complaint of chest chest discomfort and sweating. Patient states it lasted for about 10 minutes it was slightly shortness of breath. Patient also stated that it occurred a second time and it resolved. Patient states currently has no chest pain whatsoever. Patient denies any sweating patient denies any palpitations or shortness of breath or difficulty breathing. Patient states he is a smoker and he has high blood pressure high cholesterol and he has had a stent placed in the past. Patient states he is the oldest living male in his family. Patient denies any abdominal pain patient denies nausea vomiting diarrhea. Patient denies any fever chills or cough. - Related Data Home Medications Medication Instructions Recorded Confirmed Aspirin EC [Ecotrin Low Dose] 81 mg PO DAILY 01/28/20 12/23/21 Metoprolol Succinate [Toprol XL] 25 mg PO DAILY 01/28/20 12/23/21 Citalopram Hydrobromide [CeleXA] 10 mg PO HS 12/23/21 12/23/21 Nitroglycerin Sl Tabs [Nitrostat] 0.4 mg SL Q5M PRN 12/23/21 12/23/21 Previous Rx's Medication Instructions Recorded Atorvastatin [Lipitor] 40 mg PO HS #30 tablet 04/19/18 Allergies Allergy/AdvReac Type Severity Reaction Status Date / Time No Known Allergies Allergy Verified 12/23/21 07:56 Review of Systems ROS Statement: Those systems with pertinent positive or pertinent negative responses have been documented in the HPI. ROS Other: All systems not noted in ROS Statement are negative. Past Medical History Past Medical History: Atrial Fibrillation, Coronary Artery Disease (CAD), Myocardial Infarction (ID), Sleep Apnea/CPAP/BIPAP Additional Past Medical History / Comment(s): Inferior wall myocardial infarctio n/cardiogenic shock/externally paced and short term intubation/vent, tachycardia with cardiac ablation, central sleep apnea-does not tolerate device, occasional low back pain, L arm injury with surgery/limited ROM L hand Last Myocardial Infarction Date:: 01/17/18 History of Any Multi-Drug Resistant Organisms: None Reported Past Surgical History: Back Surgery, Cardiac Ablation, Heart Catheterization With Stent, Orthopedic Surgery Additional Past Surgical History / Comment(s): PCI with stent 01/2018, low back surgery-has 2 rods/4 screws, colonoscopies, left arm injury with surgery.shoulder surgery Past Anesthesia/Blood Transfusion Reactions: No Reported Reaction Date of Last Stent Placement:: 01/17/18 Past Psychological History: No Psychological Hx Reported Smoking Status: Current every day smoker Past Alcohol Use History: Occasional Past Drug Use History: None Reported - Past Family History Brother(s) Family Medical History: Myocardial Infarction (ID) Additional Family Medical History / Comment(s): in his 40s of throat cancer. Mother Family Medical History: Cancer, Coronary Artery Disease (CAD) Additional Family Medical History / Comment(s): Mother in her 80s of pancreatic cancer. Father Family Medical History: Cancer Additional Family Medical History / Comment(s): Father at age 54 yrs from mesothelioma. General Exam - General Exam Comments Initial Comments: GENERAL: Patient is well-developed and well-nourished. Patient is nontoxic and well- hydrated and is in no acute distress. ENT: Neck is soft and supple. No significant lymphadenopathy is noted. Oropharynx is clear. Moist mucous membranes. Neck has full range of motion without eliciting any pain. EYES: The sclera were anicteric and conjunctiva were pink and moist. Extraocular movements were intact and pupils were equal round and reactive to light. Eyelids were unremarkable. PULMONARY: Unlabored respirations. Good breath sounds bilaterally. No audible rales rhonchi or wheezing was noted. CARDIOVASCULAR: There is a regular rate and rhythm without any murmurs gallops or rubs. ABDOMEN: Soft and nontender with normal bowel sounds. No palpable organomegaly was noted. There is no palpable pulsatile mass. SKIN: Skin is clear with no lesions or rashes and otherwise unremarkable. NEUROLOGIC: Patient is alert and oriented x3. Cranial nerves II through XII are grossly intact. Motor and sensory are also intact. Normal speech, volume and content. Symmetrical smile. MUSCULOSKELETAL: Normal extremities with adequate strength and full range of motion. No lower extremity swelling or edema. No calf tenderness. LYMPHATICS: No significant lymphadenopathy is noted PSYCHIATRIC: Normal psychiatric evaluation. Limitations: no limitations Course Vital Signs 12/23/21 12/23/21 07:03 07:43 Temperature 98.3 F Pulse Rate 84 86 Respiratory 18 16 Rate Blood Pressure 153/89 140/91 O2 Sat by Pulse 98 98 Oximetry Medical Decision Making - Medical Decision Making EKG shows sinus rhythm with occasional PVC at 81 bpm [place] interval is 100 690 QRS is 97 QT interval is 416 QTC is 454. Patient's EKG shows no ST segment elevation or depression. Patient's chest pain-free in the emergency department. After I interviewed the patient I initially call cardiology to inform them of his symptoms and significant history. I spoke with Dr. Hummel she agreed to admit the patient to the patient wrote admitting orders. Chest x-ray showed no acute normalities. Patient was started on heparin because of his unstable angina. I continue the heparin and aspirin and Nitropaste on the floor and I consult cardiology. - Lab Data Result diagrams: 12/23/21 07:38 12/23/21 07:38 Lab Results 12/23/21 12/23/21 12/23/21 Range/Units 07:38 07:38 07:38 WBC 10.1 (3.8-10.6) k/uL RBC 4.87 (4.30-5.90) m/uL Hgb 15.9 (13.0-17.5) gm/dL Hct 47.7 (39.0-53.0) % MCV 98.0 (80.0-100.0) fL MCH 32.8 (25.0-35.0) pg MCHC 33.4 (31.0-37.0) g/dL RDW 13.9 (11.5-15.5) % Plt Count 233 (150-450) k/uL MPV 7.5 Neutrophils % 74 % Lymphocytes % 16 % Monocytes % 4 % Eosinophils % 3 % Basophils % 0 % Neutrophils # 7.5 (1.3-7.7) k/uL Lymphocytes # 1.7 (1.0-4.8) k/uL Monocytes # 0.4 (0-1.0) k/uL Eosinophils # 0.3 (0-0.7) k/uL Basophils # 0.0 (0-0.2) k/uL PT 10.0 (9.0-12.0) sec INR 0.9 (<1.2) APTT 24.5 (22.0-30.0) sec Sodium 139 (137-145) mmol/L Potassium 4.4 (3.5-5.1) mmol/L Chloride 107 (98-107) mmol/L Carbon Dioxide 20 L (22-30) mmol/L Anion Gap 12 mmol/L BUN 18 (9-20) mg/dL Creatinine 0.78 (0.66-1.25) mg/dL Est GFR (CKD-EPI)AfAm >90 (>60 ml/min/1.73 sqM) Est GFR (CKD-EPI)NonAf >90 (>60 ml/min/1.73 sqM) Glucose 102 H (74-99) mg/dL Calcium 9.5 (8.4-10.2) mg/dL Magnesium 1.9 (1.6-2.3) mg/dL Total Bilirubin 1.1 (0.2-1.3) mg/dL AST 46 (17-59) U/L ALT 45 (4-49) U/L Alkaline Phosphatase 67 (38-126) U/L Troponin I (0.000-0.034) ng/mL Total Protein 7.5 (6.3-8.2) g/dL Albumin 4.5 (3.5-5.0) g/dL 12/23/21 Range/Units 07:38 WBC (3.8-10.6) k/uL RBC (4.30-5.90) m/uL Hgb (13.0-17.5) gm/dL Hct (39.0-53.0) % MCV (80.0-100.0) fL MCH (25.0-35.0) pg MCHC (31.0-37.0) g/dL RDW (11.5-15.5) % Plt Count (150-450) k/uL MPV Neutrophils % % Lymphocytes % % Monocytes % % Eosinophils % % Basophils % % Neutrophils # (1.3-7.7) k/uL Lymphocytes # (1.0-4.8) k/uL Monocytes # (0-1.0) k/uL Eosinophils # (0-0.7) k/uL Basophils # (0-0.2) k/uL PT (9.0-12.0) sec INR (<1.2) APTT (22.0-30.0) sec Sodium (137-145) mmol/L Potassium (3.5-5.1) mmol/L Chloride (98-107) mmol/L Carbon Dioxide (22-30) mmol/L Anion Gap mmol/L BUN (9-20) mg/dL Creatinine (0.66-1.25) mg/dL Est GFR (CKD-EPI)AfAm (>60 ml/min/1.73 sqM) Est GFR (CKD-EPI)NonAf (>60 ml/min/1.73 sqM) Glucose (74-99) mg/dL Calcium (8.4-10.2) mg/dL Magnesium (1.6-2.3) mg/dL Total Bilirubin (0.2-1.3) mg/dL AST (17-59) U/L ALT (4-49) U/L Alkaline Phosphatase (38-126) U/L Troponin I <0.012 (0.000-0.034) ng/mL Total Protein (6.3-8.2) g/dL Albumin (3.5-5.0) g/dL Critical Care Time Critical Care Time: Yes Total Critical Care Time: 35 Disposition Clinical Impression: Unstable angina pectoris Disposition: ADMITTED IP TO THIS HOSP Referrals: Darya Salamanca MD [Primary Care Provider] - 1-2 days Time of Disposition: 08:48
[2021-12-23 08:04] LABS: INR 0.9 (<1.2); Partial Thromboplastin Time 24.5 sec (22.0-30.0)
--- NOTE | 2021-12-23 08:06 | XR ---
EXAMINATION TYPE: XR chest 2V DATE OF EXAM: 12/23/2021 COMPARISON: X-ray dated 01/28/2020 HISTORY: Chest pain TECHNIQUE: Frontal and lateral views of the chest are obtained. FINDINGS: Suspected COPD changes with slightly prominent interstitial lung markings. Grossly unremarkable lungs otherwise. No sizable pleural effusion or definite pneumothorax. No gross cardiomegaly. No gross agg ressive bone lesion. IMPRESSION: Questionable COPD changes, please correlate clinically. No definite acute pulmonary abnormality ident ified otherwise.
[2021-12-23 08:17] LABS: ALT 45 U/L (4-49); AST 46 U/L (17-59); African American GFR (CKD) >90 (>60 ml/min/1.73 sqM); Albumin 4.5 g/dL (3.5-5.0); Alkaline Phosphatase 67 U/L (38-126); Anion Gap 12 mmol/L; Blood Urea Nitrogen 18 mg/dL (9-20); Calcium 9.5 mg/dL (8.4-10.2); Carbon Dioxide 20 mmol/L (22-30); Chloride 107 mmol/L (98-107); Glucose 102 mg/dL (74-99); Magnesium 1.9 mg/dL (1.6-2.3); Non-African American GFR(CKD) >90 (>60 ml/min/1.73 sqM); Potassium 4.4 mmol/L (3.5-5.1); Sodium 139 mmol/L (137-145); Total Bilirubin 1.1 mg/dL (0.2-1.3); Total Protein 7.5 g/dL (6.3-8.2)
[2021-12-23] MEDS: HEPARIN SOD,PORK IN 0.45% NACL 25,000 UNIT in 0.45% NACL 1 250ML.BAG IV SCH (08:25)
[2021-12-23] MEDS ORDERED: NITROGLYCERIN SL TABS 0.4 MG TAB SUBLINGUAL PRN (08:48)
--- NOTE | 2021-12-23 10:21 | P.HPIM ---
History of Present Illness H&P Date: 12/23/21 History of Presenting Illness: Patient is a very pleasant 56-year-old male with a past medical history of CAD with previous DE and stent placement, atrial fibrillation/tachycardia status post cardiac ablation, hypertension, hyperlipidemia, obstructive sleep apnea, and nicotine dependence. Patient presented to the ER with a chief complaint of chest pain/discomfort accompanied by diaphoresis. Patient states this morning while he was getting up and getting ready he began to feel a mild discomfort in his chest accompanied by significant diaphoresis and mild shortness of breath, nausea, and dizziness. Patient reports this lasted approximately 10 minutes and resided on its own after sitting down and resting for a moment. Patient states that a few moments later the chest pain and diaphoresis again returned lasting approximately 10-15 minutes. Patient denies any recent fevers or illnesses, headaches, palpitations, dyspnea with exertion, abdominal pain, vomiting, or ex periencing any numbness/tingling/weakness/swelling in his extremities. In the Emergency Department patient was seen and fully evaluated. EKG was completed showing sinus rhythm at 81 bpm with J-point elevation in inferior leads leads II, III and aVF an occasional PVC. Chest x-ray negative for acute cardiopulmonary process showing questionable COPD changes. CBC, coags, and CMP were unremarkable. Troponin negative at less than 0.012. Patient started on heparin infusion for unstable angina and admitted under our services with consultation to cardiology. Review of systems: Pertinent positives and negatives as discussed in HPI, a complete review of systems was performed and all other systems are negative. Physical exam: Vital signs reviewed and stable. General: Nontoxic, no distress and appears stated age. Derm: Skin warm and dry, normal coloration for ethnicity. Head: Atraumatic, normocephalic and symmetric. Eyes: EOMs intact, no lid lag, and anicteric sclera Mouth: no lip lesions, mucus membranes moist Cardiovascular: regular rate and rhythm with normal S1S2, no murmur, positive posterior tibial pulses bilaterally, and cap refill < 2 seconds. Lungs: Respirations even, regular, and unlabored on room air. Lungs CTA bilaterally, no rhonchi, no rales, no wheezing, and no accessory muscle usage. Abdominal: soft, nontender to palpation, no guarding, no appreciable orga nomegaly Ext: ROM intact. No gross muscle atrophy, no edema, no contractures Neuro: Speech clear, face symmetrical and CN II-XII grossly intact with no noted focal neuro deficits Psych: Alert and oriented to person, place, time, and situation. Appropriate and pleasant affect. Assessment and Plan of Care: Chest pain and diaphoresis, rule out acute coronary event History of coronary artery disease with previous DE and stent placement Atrial fibrillation/tachycardia status post cardiac ablation Hypertension Hyperlipidemia -Cardiology consult, appreciate further recommendations -Telemetry monitoring -Trend troponins -Cardiac diet, NPO at midnight -Aspirin, atorvastatin, and metoprolol -Lipid profile with a.m. labs. -Echocardiogram Nicotine dependence -Patient given nicotine patch as well as nicotine gum secondary to smoking greater than one pack of cigarettes daily. -Continue to encourage and educate patient on the importance of smoking cessation and risks associated with continued use. The patient is admitted with an anticipated less than 2 midnight stay for evaluation of chest pain CODE STATUS: Full code DVT prophylaxis: Heparin Discussed with: Patient and RN Anticipated discharge date: 1-[address]: home A total of 40 minutes was spent on the care of this complex patient more than 50% of the time was spent in counseling and care coordination. Robert Rachel NP rendered care for this patient independently, reviewed the findings and plan as documented in the note above. I did not physically speak with or examine the patient on this date. Past Medical History Past Medical History: Atrial Fibrillation, Coronary Artery Disease (CAD), Myocardial Infarction (DE), Sleep Apnea/CPAP/BIPAP Additional Past Medical History / Comment(s): Inferior wall myocardial infarction/cardiogenic shock/externally paced and short term intubation/vent, tachycardia with cardiac ablation, central sleep apnea-does not tolerate device, occasional low back pain, L arm injury with surgery/limited ROM L hand Last Myocardial Infarction Date:: 01/17/18 History of Any Multi-Drug Resistant Organisms: None Reported Past Surgical History: Back Surgery, Cardiac Ablation, Heart Catheterization With Stent, Orthopedic Surgery Additional Past Surgical History / Comment(s): PCI with stent 01/2018, low back surgery-has 2 rods/4 screws, colonoscopies, left arm injury with surgery.erich ulder surgery Past Anesthesia/Blood Transfusion Reactions: No Reported Reaction Date of Last Stent Placement:: 01/17/18 Past Psychological History: No Psychological Hx Reported Smoking Status: Current every day smoker Past Alcohol Use History: Occasional Past Drug Use History: None Reported - Past Family History Brother(s) Family Medical History: Myocardial Infarction (DE) Additional Family Medical History / Comment(s): in his 40s of throat cancer. Mother Family Medical History: Cancer, Coronary Artery Disease (CAD) Additional Family Medical History / Comment(s): Mother in her 80s of pancreatic cancer. Father Family Medical History: Cancer Additional Family Medical History / Comment(s): Father at age 54 yrs from mesothelioma. Medications and Allergies Home Medications Medication Instructions Recorded Confirmed Type Atorvastatin [Lipitor] 40 mg PO HS #30 tablet 04/19/18 12/23/21 Rx Aspirin EC [Ecotrin Low Dose] 81 mg PO DAILY 01/28/20 12/23/21 History Metoprolol Succinate [Toprol XL] 25 mg PO DAILY 01/28/20 12/23/21 History Citalopram Hydrobromide [CeleXA] 10 mg PO HS 12/23/21 12/23/21 History Nitroglycerin Sl Tabs [Nitrostat] 0.4 mg SL Q5M PRN 12/23/21 12/23/21 History Allergies Allergy/AdvReac Type Severity Reaction Status Date / Time No Known Allergies Allergy Verified 12/23/21 07:56 Physical Exam Osteopathic Statement: *. No significant issues noted on an osteopathic structural exam other than those noted in the History and Physical/Consult. Vitals: Vital Signs Temp Pulse Resp BP Pulse Ox 12/23/21 07:43 86 16 140/91 98 12/23/21 07:03 98.3 F 84 18 153/89 98 Intake and Output 12/22/21 12/23/21 12/23/21 22:59 06:59 14:59 Other: Weight 99.79 kg Results CBC & Chem 7: 12/23/21 07:38 12/23/21 07:38 Labs: Abnormal Lab Results - Last 24 Hours (Table) 12/23/21 Range/Units 07:38 Carbon Dioxide 20 L (22-30) mmol/L Glucose 102 H (74-99) mg/dL
[2021-12-23] MEDS: METOPROLOL SUCCINATE (ER) 25 MG TAB.ER.24H PO SCH (11:46)
[2021-12-23] MEDS: NITROGLYCERIN OINT 1 INCH/GM PACKET TOPICAL SCH ×2 (14:34→18:09)
[2021-12-23] MEDS ORDERED: NICOTINE GUM (POLACRILEX) 2 MG GUM BUCCAL PRN (16:04)
[2021-12-23] MEDS: NICOTINE 21MG/24HR PATCH TRANSDERM SCH (16:14)
[2021-12-23] MEDS: HEPARIN SODIUM 1,000 UN/ML (10ML VL) MISCELLANE PRN ×2 (16:30→23:15)
--- NOTE | 2021-12-23 18:00 | ECHOF ---
Referral Reason:lv function MEASUREMENTS -------- HEIGHT: 180.3 cm WEIGHT: 99.8 kg BP: RVIDd: 2.4 cm (< 3.3) IVSd: 0.9 cm (0.6 - 1.1) LVIDd: 5.1 cm (3.9 - 5.3) LVPWd: 1.0 cm (0.6 - 1.1) IVSs: 1.5 cm LVIDs: 3.6 cm LVPWs: 1.7 cm LAESV Index (A-L): 19.85 ml/m Ao Diam: 3.3 cm (2.0 - 3.7) AV Cusp: 2.4 cm (1.5 - 2.6) LA Diam: 3.5 cm (2.7 - 3.8) MV EXCURSION: 18.395 mm (> 18.000) MV EF SLOPE: 98 mm/s (70 - 150) EPSS: 0.7 cm MV E Jaime: 0.66 m/s MV DecT: 176 ms MV A Jaime: 0.55 m/s MV E/A Ratio: 1.20 RAP: 5.00 mmHg RVSP: 19.00 mmHg FINDINGS -------- This was a technically good study. The left ventricular size is normal. Left ventricular wall thickness is normal. Overall left vent ricular systolic function is normal with, an EF between 55 - 60 %. The diastolic filling pattern is normal for the age of the patient 6.65. The right ventricle is normal in size. The left atrial size is normal. Normal LA size by volume 22+/-6 ml/m2. The right atrial size is normal. The aortic valve is trileaflet and appears structurally normal. The mitral valve is normal. There is trace mitral regurgitation. The tricuspid valve appears structurally normal. Trace tricuspid regurgitation present. Right salome tricular systolic pressure is normal at < 35 mmHg. There is no pulmonic regurgitation present. The aortic root size is normal. Normal inferior vena cava with normal inspiratory collapse consistent with estimated right atrial pre ssure of 5 mmHg. There is no pericardial effusion. CONCLUSIONS -------- 1. The left ventricular size is normal. 2. Left ventricular wall thickness is normal. 3. Overall left ventricular systolic function is normal with, an EF between 55 - 60 %. 4. The diastolic filling pattern is normal for the age of the patient 6.65 5. There is trace mitral regurgitation. 6. Trace tricuspid regurgitation present. 7. There is no pericardial effusion. TILE SORTER: Katie Zuleta RDCS
[2021-12-23] MEDS ORDERED: ATORVASTATIN 40 MG TAB PO SCH (21:00)
[2021-12-23] MEDS ORDERED: CITALOPRAM HYDROBROMIDE 10 MG TAB PO SCH (21:00)
[2021-12-23] MEDS ORDERED: HEPARIN SODIUM 1,000 UN/ML (10ML VL) IV PRN (22:58)
[2021-12-23 23:21] LABS: INR 0.9 (<1.2)
[2021-12-23 23:22] LABS: Prothrombin Time 10.2 sec (9.0-12.0)
[2021-12-24] MEDS: NITROGLYCERIN OINT 1 INCH/GM PACKET TOPICAL SCH ×2 (00:19→06:03)
[2021-12-24 06:27] VITALS: BP 123/77; PULSE 78; RESP 18; TEMP 97.9
[2021-12-24] MEDS: HEPARIN SODIUM 1,000 UN/ML (10ML VL) MISCELLANE PRN (07:23)
[2021-12-24] MEDS: NICOTINE 21MG/24HR PATCH TRANSDERM SCH (08:30)
[2021-12-24] MEDS ORDERED: ASPIRIN 325 MG TAB PO SCH (09:00)
[2021-12-24] MEDS ORDERED: ASPIRIN 81 MG PO SCH (09:00)
[2021-12-24] MEDS: METOPROLOL SUCCINATE (ER) 25 MG TAB.ER.24H PO SCH (09:33)
[2021-12-24 09:34] LABS: Chol/HDL Ratio 2.07 Ratio; LDL Cholesterol,Calculated 35.7 mg/dL (0.0-131.0)
[2021-12-24] MEDS: HEPARIN SOD,PORK IN 0.45% NACL 25,000 UNIT in 0.45% NACL 1 250ML.BAG IV SCH (09:34)
--- NOTE | 2021-12-24 10:01 | P.CRDCN ---
History of Present Illness Consult date: 12/23/21 History of present illness: HISTORY OF PRESENT ILLNESS: This is a 56-year-old male with a past medical history significant for hypertension, hyperlipidemia, nicotine dependence, and coronary artery disease with previous PCI. Patient follows in the office with Dr. Bryant. We have been asked to see the patient in consultation for chest pain. Patient examined at the bedside. Patient states yesterday morning he woke up and was sweating. He was drinking coffee and was sweating profusely. He states it lasted about 10 minutes. He denied having any chest pain or pressure. Denied having any SOB. He reports having occasional palpitations. * EKG reveals sinus mechanism with no signs of acute ischemia * Chest xray questionable COPD changes. Please correlate clinically. No definite acute pulmonary abnormalities identified otherwise. * Laboratory data: WBC 10.1. Hemoglobin 15.9. Platelet count 233. Sodium 139. Potassium 4.4. BUN 18. Creatinine 0.78. Magnesium 1.9. Troponin negative 2. * Current home cardiac medications include metoprolol succinate 25 mg daily, aspirin 81 mg daily, and Lipitor 40 mg at night * Most recent echocardiogram obtained in August 2020 revealed ejection fraction 55%, mild MR, mild TR * Cardiac catheterization history: 2018 with stenting of the left circumflex REVIEW OF SYSTEMS: At the time of my exam: CONSTITUTIONAL: Denies fever or chills. HEENT: Denies blurred vision, vision changes, or eye pain. Denies hemoptysis CARDIOVASCULAR: Denies chest pain. Denies orthopnea. Denies PND. Denies palpitations RESPIRATORY: Denies shortness of breath. GASTROINTESTINAL: Denies abdominal pain. Denies nausea or vomiting. HEMATOLOGIC: Denies bleeding disorders. GENITOURINARY: Denies any blood in urine. SKIN: Denies pruitis. Denies rash. PHYSICAL EXAM: VITAL SIGNS: Reviewed. GENERAL: Well-developed in no acute distress. HEENT: Head is normocephalic. Pupils are equal, round. Sclerae anicteric. Mucous membranes of the mouth are moist. Neck supple. No JVD or thyromegaly LUNGS: Respirations even and unlabored. Lungs essentially clear to auscultation bilaterally. HEART: Regular rate and rhythm. S1 and S2 heard. ABDOMEN: Soft. Nondistended. Nontender. EXTREMITIES: Normal range of motion. No clubbing or cyanosis. Peripheral pulses intact. No lower extremity edema NEUROLOGIC: Awake and alert. Oriented x 3. ASSESSMENT: Chest pain, ruled out, patient presented with diaphoresis Coronary artery disease with previous PCI to the circumflex Hypertension Hyperlipidemia Nicotine dependence History of previous ablation, approximately 15 years ago at [facility], patient believes secondary to atrial fibrillation PLAN: An acute coronary event has been ruled out Continue home cardiac medications Patient may be discharged home today from a cardiac standpoint Patient to have an event monitor placed prior to discharge and follow up on an outpatient basis Nurse practitioner note has been reviewed by physician. Signing provider agrees with the documented findings, assessment, and plan of care. 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/cardiogenic shock/externally paced and short term intubation/vent, tachycardia with cardiac ablation, central sleep apnea-does not need device, occasional low back pain, L arm injury with surgery/limited ROM L hand Last Myocardial Infarction Date:: 01/17/18 History of Any Multi-Drug Resistant Organisms: None Reported Past Surgical History: Back Surgery, Cardiac Ablation, Heart Catheterization, Heart Catheterization With Stent, Orthopedic Surgery Additional Past Surgical History / Comment(s): PCI with stent 01/2018, low back surgery-has 2 rods/4 screws, colonoscopies, left arm injury with surgery to upper arm and wrist, R shoulder surgery Past Anesthesia/Blood Transfusion Reactions: No Reported Reaction Date of Last Stent Placement:: 01/17/18 Smoking Status: Current every day smoker - Past Family History Brother(s) Family Medical History: Myocardial Infarction (ND) Additional Family Medical History / Comment(s): in his 40s of throat cancer. Mother Family Medical History: Cancer, Coronary Artery Disease (CAD) Additional Family Medical History / Comment(s): Mother in her 80s of pancreatic cancer. Father Family Medical History: Cancer Additional Family Medical History / Comment(s): Father at age 54 yrs from mesothelioma. Medications and Allergies Home Medications Medication Instructions Recorded Confirmed Type Atorvastatin [Lipitor] 40 mg PO HS #30 tablet 04/19/18 12/23/21 Rx Aspirin EC [Ecotrin Low Dose] 81 mg PO DAILY 01/28/20 12/23/21 History Metoprolol Succinate [Toprol XL] 25 mg PO DAILY 01/28/20 12/23/21 History Citalopram Hydrobromide [CeleXA] 10 mg PO HS 12/23/21 12/23/21 History Nitroglycerin Sl Tabs [Nitrostat] 0.4 mg SL Q5M PRN 12/23/21 12/23/21 History Allergies Allergy/AdvReac Type Severity Reaction Status Date / Time No Known Allergies Allergy Verified 12/23/21 07:56 Physical Exam Vitals: Vital Signs Temp Pulse Resp BP Pulse Ox 12/23/21 10:29 82 16 124/83 97 12/23/21 07:43 86 16 140/91 98 12/23/21 07:03 98.3 F 84 18 153/89 98 Intake and Output 12/22/21 12/23/21 12/23/21 22:59 06:59 14:59 Other: Weight 99.79 kg Results 12/23/21 07:38 12/23/21 07:38 Cardiac Enzymes 12/23/21 12/23/21 12/23/21 Range/Units 07:38 07:38 10:19 AST 46 (17-59) U/L Troponin I <0.012 <0.012 (0.000-0.034) ng/mL Coagulation 12/23/21 Range/Units 07:38 PT 10.0 (9.0-12.0) sec APTT 24.5 (22.0-30.0) sec CBC 12/23/21 Range/Units 07:38 WBC 10.1 (3.8-10.6) k/uL RBC 4.87 (4.30-5.90) m/uL Hgb 15.9 (13.0-17.5) gm/dL Hct 47.7 (39.0-53.0) % Plt Count 233 (150-450) k/uL Comprehensive Metabolic Panel 12/23/21 Range/Units 07:38 Sodium 139 (137-145) mmol/L Potassium 4.4 (3.5-5.1) mmol/L Chloride 107 (98-107) mmol/L Carbon Dioxide 20 L (22-30) mmol/L BUN 18 (9-20) mg/dL Creatinine 0.78 (0.66-1.25) mg/dL Glucose 102 H (74-99) mg/dL Calcium 9.5 (8.4-10.2) mg/dL AST 46 (17-59) U/L ALT 45 (4-49) U/L Alkaline Phosphatase 67 (38-126) U/L Total Protein 7.5 (6.3-8.2) g/dL Albumin 4.5 (3.5-5.0) g/dL Current Medications Generic Name Dose Route Start Last Admin Trade Name Freq PRN Reason Stop Dose Admin Aspirin 325 mg 12/24/21 09:00 Aspirin 325 Mg Tab PO DAILY [facility] Heparin Sodium/Sodium Chloride 250 mls @ 10 mls/hr 12/23/21 07:45 12/23/21 08:25 25,000 unit/ Sodium Chloride IV 10.021 units/kg/hr .Q24H JACQUI 10 mls/hr Administration Protocol 10.021 UNITS/KG/HR Nitroglycerin 0.4 mg 12/23/21 08:48 Nitroglycerin Sl Tabs 0.4 Mg Tab SUBLINGUAL Q5M PRN Chest Pain Nitroglycerin 1 inch 12/23/21 12:00 Nitroglycerin Oint 1 Inch/Gm Packet TOPICAL Q6HR [facility] Intake and Output 12/22/21 12/23/21 12/23/21 22:59 06:59 14:59 Other: Weight 99.79 kg Patient Weight 12/24/21 06:59 Weight 99.79 kg 12/23/21 07:38 12/23/21 07:38
--- NOTE | 2021-12-24 13:03 | P.DS ---
Providers Date of admission: 12/23/21 08:54 Expected date of discharge: 12/24/21 Attending physician: Tosha Hummel DO [facility] Course: Discharge Diagnosis: Chest pain and diaphoresis, rule out acute coronary event History of coronary artery disease with previous OH and stent placement Atrial fibrillation/tachycardia status post cardiac ablation Hypertension Hyperlipidemia Nicotine dependence Hospital Course: Patient is a very pleasant 56-year-old male with a past medical history of CAD with previous OH and stent placement, atrial fibrillation/tachycardia status post cardiac ablation, hypertension, hyperlipidemia, obstructive sleep apnea, and nicotine dependence. Patient presented to the ER with a chief complaint of chest pain/discomfort accompanied by diaphoresis. Patient states this morning while he was getting up and getting ready he began to feel a mild discomfort in his chest accompanied by significant diaphoresis and mild shortness of breath, nausea, and dizziness. Patient reports this lasted approximately 10 minutes and resided on its own after sitting down and resting for a moment. Patient states that a few moments later the chest pain and diaphoresis again returned lasting approximately 10-15 minutes. Patient denies any recent fevers or illnesses, headaches, palpitations, dyspnea with exertion, abdominal pain, vomiting, or experiencing any numbness/tingling/weakness/swelling in his extremities. In the Emergency Department patient was seen and fully evaluated. EKG was completed showing sinus rhythm at 81 bpm with J-point elevation in inferior leads leads II, III and aVF an occasional PVC. Chest x-ray negative for acute cardiopulmonary process showing questionable COPD changes. CBC, coags, and CMP were unremarkable. Troponin negative at less than 0.012. Patient started on heparin infusion for unstable angina and admitted under our services with cons ultation to cardiology. Patient was monitored throughout the night troponins remain negative at less than 0.0123 draws. Lipid profile unremarkable. Patient reports that he has not had any further episodes of chest discomfort or diaphoresis since prior to coming into the hospital. Patient requesting discharge home. Patient was evaluated by cardiology recommending patient be discharged home on event monitor. Event monitor was ordered and delivered, patient placed on event monitor and was instructed on use. Cardiology recommending patient follow-up outpatient in the office for a stress test. Patient denies having any questions, needs, or complaints. Patient also strongly encouraged to stop smoking. Patient medically stable for discharge at this time. No medication changes made at this time. Physical exam: Vital signs reviewed and stable. General: Nontoxic, no distress and appears stated age. Derm: Skin warm and dry, normal coloration for ethnicity. Head: Atraumatic, normocephalic and symmetric. Eyes: EOMs intact, no lid lag, and anicteric sclera Mouth: no lip lesions, mucus membranes moist Cardiovascular: regular rate and rhythm with normal S1S2, no murmur, positive posterior tibial pulses bilaterally, and cap refill < 2 seconds. Lungs: Respirations even, regular, and unlabored on room air. Lungs CTA bilaterally, no rhonchi, no rales, no wheezing, and no accessory muscle usage. Abdominal: soft, nontender to palpation, no guarding, no appreciable organomegaly Ext: ROM intact. No gross muscle atrophy, no edema, no contractures Neuro: Speech clear, face symmetrical and CN II-XII grossly intact with no noted focal neuro deficits Psych: Alert and oriented to person, place, time, and situation. Appropriate and pleasant affect. A total of 40 minutes of time were spent preparing this complex discharge summary. Robert Rachel NP rendered care for this patient independently, reviewed the findings and plan as documented in the note above. I did not physically speak with or examine the patient on this date. Patient Condition at Discharge: Stable Plan - Discharge Summary Discharge Rx Participant: No New Discharge Prescriptions: Continue Atorvastatin [Lipitor] 40 mg PO HS #30 tablet Metoprolol Succinate [Toprol XL] 25 mg PO DAILY Aspirin EC [Ecotrin Low Dose] 81 mg PO DAILY Citalopram Hydrobromide [CeleXA] 10 mg PO HS Nitroglycerin Sl Tabs [Nitrostat] 0.4 mg SL Q5M PRN PRN Reason: Chest Pain Discharge Medication List Atorvastatin [Lipitor] 40 mg PO HS #30 tablet 04/19/18 [Rx] Aspirin EC [Ecotrin Low Dose] 81 mg PO DAILY 01/28/20 [History] Metoprolol Succinate [Toprol XL] 25 mg PO DAILY 01/28/20 [History] Citalopram Hydrobromide [CeleXA] 10 mg PO HS 12/23/21 [History] Nitroglycerin Sl Tabs [Nitrostat] 0.4 mg SL Q5M PRN 12/23/21 [History] Follow up Appointment(s)/Referral(s): Meño Ewing DO [STAFF PHYSICIAN] - 01/06/22 5:00 pm Darya Salamanca MD [Primary Care Provider] - 1-2 days Activity/Diet/Wound Care/Special Instructions: Activity: As tolerated. Take breaks as needed. Diet: Heart healthy and carb consistent diet. Avoid salts, or foods with hidden salts such as canned or boxed foods and frozen dinners. Extra salt makes your heart work harder and traps the fluid in your body for longer. Special Instructions: Take all of your medications as directed and remember to keep all of your doctor's appointments and follow-up as needed. Please wear the cardiac event monitor at all times per instructions and follow up with cardiology in one week for outpatient stress and further evaluation. Strongly encourage you to stop smoking. Thank you for allowing us to participate in your care, it was truly a pleasure having you for our patient!!! APPOINTMENT WITH DR. HERNANDEZ WILL BE AT THE [address] [place] [address] OFFICE AT 5PM Discharge Disposition: HOME SELF-CARE
== END 2021-12-24 13:17 | disposition home or self-care (01) ==
LOC: EC 07:02 → 6NMEDSUR 08:54
PROVIDERS: ADMIT Internal Medicine; ATTEND Internal Medicine
DX: R07.89 Other chest pain (principal); R61 Generalized hyperhidrosis; I25.10 Atherosclerotic heart disease of native coronary artery without angina pectoris; I10 Essential (primary) hypertension; I48.91 Unspecified atrial fibrillation; R00.0 Tachycardia, unspecified; E78.00 Pure hypercholesterolemia, unspecified; E78.5 Hyperlipidemia, unspecified; I25.2 Old myocardial infarction; G47.33 Obstructive sleep apnea (adult) (pediatric); I49.3 Ventricular premature depolarization; F17.210 Nicotine dependence, cigarettes, uncomplicated; Z79.82 Long term (current) use of aspirin; Z79.899 Other long term (current) drug therapy; Z95.5 Presence of coronary angioplasty implant and graft; Z87.828 Personal history of other (healed) physical injury and trauma; Z98.890 Other specified postprocedural states; Z82.49 Family history of ischemic heart disease and other diseases of the circulatory system; Z80.0 Family history of malignant neoplasm of digestive organs; Z80.8 Family history of malignant neoplasm of other organs or systems; Z71.6 Tobacco abuse counseling
CPT/HCPCS: 96376 ×3; 96366 ×3; 96365; 99291; 36415; 93005; 93306; 93270; 80061; 80053; 83735; 84484; 85025; 85610; 85730 ×2; 71046; G0378 ×2; S4990 ×2; J1644 ×3

== ENCOUNTER 2022-09-09 07:38 | Observation (INO) | payer BC ==
[2022-09-09 08:07] LABS: Basophils % (A) 0 %; Eosinophils # (A) 0.2 k/uL (0-0.7); Eosinophils % (A) 2 %; HCT 44.4 % (39.0-53.0); HGB 15.3 gm/dL (13.0-17.5); Lymphocytes # (A) 1.4 k/uL (1.0-4.8); Lymphocytes % (A) 12 %; MCHC 34.4 g/dL (31.0-37.0); MCV 95.8 fL (80.0-100.0); Mean Platelet Volume 8.3; Monocytes # (A) 0.5 k/uL (0-1.0); Monocytes % (A) 5 %; Neutrophils # (A) 8.8 k/uL (1.3-7.7); Neutrophils % (A) 79 %; Platelet Count 207 k/uL (150-450); RBC 4.63 m/uL (4.30-5.90); RDW 13.5 % (11.5-15.5); WBC 11.2 k/uL (3.8-10.6)
[2022-09-09 08:20] LABS: ALT 40 U/L (4-49); AST 36 U/L (17-59); African American GFR (CKD) >90 (>60 ml/min/1.73 sqM); Albumin 4.3 g/dL (3.5-5.0); Alkaline Phosphatase 72 U/L (38-126); Anion Gap 6 mmol/L; Blood Urea Nitrogen 17 mg/dL (9-20); Calcium 9.1 mg/dL (8.4-10.2); Carbon Dioxide 24 mmol/L (22-30); Chloride 109 mmol/L (98-107); Glucose 114 mg/dL (74-99); Magnesium 1.9 mg/dL (1.6-2.3); Non-African American GFR(CKD) >90 (>60 ml/min/1.73 sqM); Potassium 4.4 mmol/L (3.5-5.1); Sodium 139 mmol/L (137-145); Total Bilirubin 0.6 mg/dL (0.2-1.3); Total Protein 7.1 g/dL (6.3-8.2)
[2022-09-09 08:21] LABS: INR 0.9 (<1.2); Partial Thromboplastin Time 22.4 sec (22.0-30.0); Prothrombin Time 9.6 sec (9.0-12.0)
--- NOTE | 2022-09-09 08:28 | XR ---
EXAMINATION TYPE: XR chest 2V DATE OF EXAM: 09/09/2022 8:08 AM COMPARISON: Chest radiographs from 12/23/2021 TECHNIQUE: XR chest 2V Frontal and lateral views of the chest. CLINICAL INDICATION:Male, 57 years old with history of Chest Pain; FINDINGS: Lungs/Pleura: There is no evidence of pleural effusion, focal consolidation, or pneumothorax. Pulmonary vascularity: Unremarkable. Heart/mediastinum: Cardiomediastinal silhouette is unremarkable. Musculoskeletal: No acute osseous pathology. IMPRESSION: No acute cardiopulmonary disease/process.
[2022-09-09] MEDS ORDERED: NALOXONE 0.4 MG/ML 1 ML VIAL IV PRN (09:51)
--- NOTE | 2022-09-09 09:51 | ED ---
Chest Pain HPI - General Chief Complaint: Chest Pain Stated Complaint: chest tightness Time Seen by Provider: 09/09/22 07:45 Source: patient Mode of arrival: wheelchair Limitations: no limitations - History of Present Illness Initial Comments: 57-year-old male with past history of SD with associated cardiogenic shock and heart block in 2018 who presents to the emergency department with chest pain. He states that he was drinking his morning coffee around 6 AM when he had sudden onset of chest pain. States that it is substernal and left-sided. No radiation of the pain. He did take 3 nitro at home and states that it completely resolved his pain. He drove to his 's work who then brought him up to the hospital. States he is pain-free at this time. No associated nausea, vomiting or diaphoresis. He denies fevers, chills or cough. No calf pain or swelling. He was taken off of his Plavix one year after his stent was placed. He denies r ipping or tearing sensation to his back. No other alleviating, precipitating or modifying factors - Related Data Home Medications Medication Instructions Recorded Confirmed Aspirin EC [Ecotrin Low Dose] 81 mg PO DAILY 01/28/20 09/09/22 Metoprolol Succinate [Toprol XL] 25 mg PO DAILY 01/28/20 09/09/22 Citalopram Hydrobromide [CeleXA] 10 mg PO HS 12/23/21 09/09/22 Nitroglycerin Sl Tabs [Nitrostat] 0.4 mg SL Q5M PRN 12/23/21 09/09/22 Melatonin 5 mg PO HS 09/09/22 09/09/22 Previous Rx's Medication Instructions Recorded Atorvastatin [Lipitor] 40 mg PO HS #30 tablet 04/19/18 Allergies Allergy/AdvReac Type Severity Reaction Status Date / Time No Known Allergies Allergy Verified 09/09/22 10:21 Review of Systems ROS Statement: Those systems with pertinent positive or pertinent negative responses have been documented in the HPI. ROS Other: All systems not noted in ROS Statement are negative. EKG Findings - EKG Comments: EKG Findings:: EKG completed at 7:55 AM demonstrates a sinus rhythm with a rate of 79. TN interval 179. QRS 13. QTC of 432. No acute ST segment elevations or depressions EKG interpreted by myself. 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/externally paced and short term intubation/vent, tachycardia with cardiac ablation, central sleep apnea-does not need device, occasional low back pain, L arm injury with surgery/limited ROM L hand Last Myocardial Infarction Date:: 01/17/18 History of Any Multi-Drug Resistant Organisms: None Reported Past Surgical History: Back Surgery, Cardiac Ablation, Heart Catheterization, Heart Catheterization With Stent, Orthopedic Surgery Additional Past Surgical History / Comment(s): PCI with stent 01/2018, low back surgery-has 2 rods/4 screws, colonoscopies, left arm injury with surgery to upper arm and wrist, R shoulder surgery Past Anesthesia/Blood Transfusion Reactions: No Reported Reaction Date of Last Stent Placement:: 01/17/18 Past Psychological History: No Psychological Hx Reported Smoking Status: Current every day smoker - Past Family History Brother(s) Family Medical History: Myocardial Infarction (SD) Additional Family Medical History / Comment(s): in his 40s of throat cancer. Mother Family Medical History: Cancer, Coronary Artery Disease (CAD) Additional Family Medical History / Comment(s): Mother in her 80s of pancreatic cancer. Father Family Medical History: Cancer Additional Family Medical History / Comment(s): Father at age 54 yrs from mesothelioma. General Exam Limitations: no limitations Course Vital Signs 09/09/22 09/09/22 07:45 09:49 Temperature 98 F 97.6 F Pulse Rate 80 67 Respiratory 16 18 Rate Blood Pressure 156/88 119/78 O2 Sat by Pulse 97 96 Oximetry Chest Pain MDM - MDM Upon arrival patient was placed in room 18. A thorough history and physical exam was performed. He is placed on continuous pulse ox and cardiac monitoring. 12-lead EKG was obtained and is compared to his old. No acute EKG changes apparent at this time. Patient is pain-free. Laboratory studies were conducted reviewed. First troponin is negative. Due to significant history did recommend admission for troponins and cardiac evaluation. Patient was agreeable to this. Spoke with Dr. Hummel who was agreeable to admit the patient Was pt. sent in by a medical professional or institution? @ -[by SHAAN Canela, PROPELLER TESTER, urgent care, hospital, or detention] Did you speak to anyone other than the patient for history? @ -[EMS, parent, family, police, friend?] Did you review nursing and triage notes? @ -[agree or disagree, why?] Were old charts reviewed? @ -[outside hosp., previous admissions, EMS record, old EKG, old radiological studies, urgent care reports/EKGs, detention records?] Differential Diagnosis? @ -[chest pain, altered mental status abdominal pain women, abdominal pain men, vaginal bleeding, weakness, fever, dyspnea, syncope, headache, dizziness, GI bleed, back pain, seizure] EKG interpreted by me (3pts min.)? @ -[none] X-rays interpreted by me (1pt min.)? @ -[none] CT interpreted by me (1pt min.)? @ -[none] U/S interpreted by me (1pt. min.)? @ -[none] What testing was considered but not performed? (CT, X-rays, U/S, labs)? Why? @ [CT, X-rays, U/S, labs? Why?] What meds were considered but not given? Why? @ -[none] Did you discuss the management of the patient with other professionals? @ -[professionals i.e. SHAAN Appiah, [employer]OPELLER TESTER, Lab, RT, Psych Nurse, Metal Drawer, Lighting Engineer, Teacher, Double Needle Stitcher, case sealer? Give summary] Did you reconcile home meds? @ -[none] Was smoking cessation discussed for >3mins.? @ -[none] Was critical care preformed (if so, how long)? @ -[none] Were there social determinants of health that impacted care today? How? (Homelessness, low income, unemployed, alcoholism, drug addiction, transportation, low edu. Level, literacy, decrease access to med. care, [facility], rehab)? @ -[Homelessness, low income, unemployed, alcoholism, drug addiction, transportation, low edu. Level, literacy, decrease access to med. care, [facility], rehab?] Was there de-escalation of care discussed even if they declined? (Discuss DNR or withdrawal of care, Hospice)? @ -[Discuss DNR or withdrawal of care, Hospice?] What co-morbidities impacted this encounter? (DM, HTN, Smoking, COPD, CAD, Cancer, CVA, Hep., AIDS, mental health diagnosis, sleep apnea, morbid obesity)? @ -[DM, HTN, Smoking, COPD, CAD, Cancer, CVA, Hep., AIDS, mental health diagnosis, sleep apnea, morbid obesity?] Was patient admitted / discharged? @ -[hospital course] Undiagnosed new problem with uncertain prognosis? @ -[none] Drug Therapy requiring intensive monitoring for toxicity (Heparin, Nitro, Insulin, Cardizem)? @ -[none] Were any procedures done? @ -[none] Diagnosis/symptom? @ -[default] Acute, or Chronic, or Acute on Chronic? @ -[default] Uncomplicated (without systemic symptoms) or Complicated (systemic symptoms)? @ -[default] Side effects of treatment? @ -[none] Exacerbation, Progression, or Severe Exacerbation] @ -[no] Poses a threat to life or bodily function? @ -[no] Disposition Clinical Impression: Chest pain Disposition: ADMITTED IP TO THIS [facility] Condition: Stable Is patient prescribed a controlled substance at d/c from ED?: No Time of Disposition: 09:51 Decision to Admit Reason: Admit from EC Decision Date: 09/09/22 Decision Time: 09:51
--- NOTE | 2022-09-09 11:45 | P.HPIM ---
History of Present Illness H&P Date: 09/09/22 History of Presenting Illness: Patient is a very pleasant 57-year-old male with a past medical history of CAD with previous VT resulting in associated cardiogenic shock and third degree heart block in 2018, hypertension, hyperlipidemia, and nicotine dependence. Patient does report a mild alcohol use stating he drinks 1-2 beers nightly but denies excessive alcohol intake. 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 He presented to the emergency department this morning with a chief complaint of chest pain/tightness. Patient reports he has been feeling off and not quite himself over the past couple days and his has been urging him to be evaluated, however this morning around 6 AM while sitting down drinking some coffee he began to experience some chest pains/tightness and just not feel right. Patient reports this pain stayed localized to his left anterior chest and denied any radiation of this pain. Patient reports he took 3 sublingual nitroglycerin tablets which resulted in full resolution of this pain. He denied experiencing any headache, lightheadedness, diaphoresis, dizziness, palpitations, shortness of breath, nausea, or noticing any numbness/tingling/weakness/swelling in his extremities. Patient reports his made him come to the hospital for evaluation, that he is pretty certain that he is just experiencing some anxiety. Patient underwent full evaluation in the emergency department. Labs completed and reviewed. CBC revealed mild leukocytosis with WBC count of 11.2. CMP showing no significant abnormalities. Initial troponin was less than 0.012 with a pro-BMP of 357. EKG showing sinus mechanism at 79 bpm with J-point elevation in inferior leads 2, 3, and aVF which is unchanged when compared to previous EKG completed 12/24/21. Chest x-ray reviewed and was negative for acute cardiopulmonary process. Patient admitted under our services with consultation to cardiology. Review of systems: Pertinent positives and negatives as discussed in HPI, a complete review of systems was performed and all other systems are negative. Physical exam: Vital signs reviewed and stable. General: Nontoxic, no distress and appears stated age. Derm: Skin warm and dry, normal coloration for ethnicity. Head: Atraumatic, normocephalic and symmetric. Eyes: EOMs intact, no lid lag, and anicteric sclera Mouth: no lip lesions, mucus membranes moist Cardiovascular: regular rate and rhythm with normal S1S2, systolic murmur, positive posterior tibial pulses bilaterally, and cap refill < 2 seconds. Lungs: Respirations even, regular, and unlabored on room air. Lungs CTA bilaterally, no rhonchi, no rales, no wheezing, and no accessory muscle usage. Abdominal: soft, nontender to palpation, no guarding, no appreciable organomegaly Ext: ROM intact. No gross muscle atrophy, no edema, no contractures Neuro: Speech clear, face symmetrical and CN II-XII grossly intact with no noted focal neuro deficits Psych: Alert and oriented to person, place, time, and situation. Appropriate and pleasant affect. Assessment and Plan of Care: Chest pain, rule out acute coronary event History of CAD with previous VT resulting in cardiogenic shock History of third degree heart block Hypertension Hyperlipidemia -Cardiology consult, appreciate further recommendations -Telemetry monitoring -Trend troponins -Cardiac diet, NPO at midnight -Continue daily Aspirin, atorvastatin, and metoprolol -Echocardiogram Nicotine dependence -Recommend smoking cessation. -Nicotine patch The patient is admitted with an anticipated less than 2 midnight stay for evaluation of chest pain CODE STATUS: Full code DVT prophylaxis: heparin Discussed with: patient and RN Anticipated discharge date: 1-[address]: home A total of 44 minutes was spent on the care of this complex patient more than 50% of the time was spent in counseling and care coordination. Delano Rachel NP rendered care for this patient independently, reviewed the findings and plan as documented in the note above. I did not physically speak with or examine the patient on this date. Past Medical History Past Medical History: Atrial Fibrillation, Coronary Artery Disease (CAD), Chest Pain / Angina, Hyperlipidemia, Hypertension, Myocardial Infarction (VT), Sleep Apnea/CPAP/BIPAP Additional Past Medical History / Comment(s): 2017 Inferior wall myocardial infarction/cardiogenic shock/externally paced and short term intubation/vent, tachycardia with cardiac ablation, central sleep apnea-does not need device, occasional low back pain, L arm injury with surgery/limited ROM L hand Last Myocardial Infarction Date:: 01/17/18 History of Any Multi-Drug Resistant Organisms: None Reported Past Surgical History: Back Surgery, Cardiac Ablation, Heart Catheterization, Heart Catheterization With Stent, Orthopedic Surgery Additional Past Surgical History / Comment(s): PCI with stent 01/2018, low back surgery-has 2 rods/4 screws, colonoscopies, left arm injury with surgery to upper arm and wrist, R shoulder surgery Past Anesthesia/Blood Transfusion Reactions: No Reported Reaction Date of Last Stent Placement:: 01/17/18 Past Psychological History: No Psychological Hx Reported Smoking Status: Current every day smoker - Past Family History Brother(s) Family Medical History: Myocardial Infarction (VT) Additional Family Medical History / Comment(s): in his 40s of throat cancer. Mother Family Medical History: Cancer, Coronary Artery Disease (CAD) Additional Family Medical History / Comment(s): Mother in her 80s of pancreatic cancer. Father Family Medical History: Cancer Additional Family Medical History / Comment(s): Father at age 54 yrs from mesothelioma. Medications and Allergies Home Medications Medication Instructions Recorded Confirmed Type Atorvastatin [Lipitor] 40 mg PO HS #30 tablet 04/19/18 09/09/22 Rx Aspirin EC [Ecotrin Low Dose] 81 mg PO DAILY 01/28/20 09/09/22 History Metoprolol Succinate [Toprol XL] 25 mg PO DAILY 01/28/20 09/09/22 History Citalopram Hydrobromide [CeleXA] 10 mg PO HS 12/23/21 09/09/22 History Nitroglycerin Sl Tabs [Nitrostat] 0.4 mg SL Q5M PRN 12/23/21 09/09/22 History Melatonin 5 mg PO HS 09/09/22 09/09/22 History Allergies Allergy/AdvReac Type Severity Reaction Status Date / Time No Known Allergies Allergy Verified 09/09/22 10:21 Physical Exam Vitals: Vital Signs Temp Pulse Resp BP Pulse Ox 09/09/22 09:49 97.6 F 67 18 119/78 96 09/09/22 07:45 98 F 80 16 156/88 97 Intake and Output 09/08/22 09/09/22 09/09/22 22:59 06:59 14:59 Other: Weight 104.326 kg Results CBC & Chem 7: 09/09/22 08:02 09/09/22 08:02 Labs: Abnormal Lab Results - Last 24 Hours (Table) 09/09/22 09/09/22 Range/Units 08:02 08:02 WBC 11.2 H (3.8-10.6) k/uL Neutrophils # 8.8 H (1.3-7.7) k/uL Chloride 109 H (98-107) mmol/L Glucose 114 H (74-99) mg/dL
[2022-09-09] MEDS ORDERED: CAFFEINE CITRATE 60 MG/3 ML VIAL IV PRN (11:57)
[2022-09-09] MEDS ORDERED: AMINOPHYLLINE 500 MG/20 ML VIAL IV PRN (11:57)
--- NOTE | 2022-09-09 11:57 | P.CRDCN ---
History of Present Illness Consult date: 09/09/22 History of present illness: History of Present Illness: The patient is a 57-year-old male with known history of hyperlipidemia, chronic tobacco use and daily alcohol intake underwent stenting of a dominant left circumflex in the setting of an acute myocardial infarction complicated by cardiogenic shock and complete heart block in 2017. He has been followed by Dr. Bryant. He presents today to the emergency room because he did not feel well and his told him that he is feeling tired he denies any significant chest discomfort, dyspnea, dizziness or palpitations. He is not very active physically but has no significant associated symptoms. He denies any PND, or thopnea or peripheral edema. He underwent cardiac catheterization in 2019 and was found to have patent stent to the left circumflex with mild to moderate disease in the LAD. He had an echocardiogram done in December 2021 that showed a normal systolic function with no significant valvular disease. An event monitor performed in December showed no malignant arrhythmia with episodes of atrial tachycardia. In the emergency room his troponin was normal and he had no evidence of acute ST segment changes. Medications: Toprol XL 25 mg daily, aspirin once a day, Lipitor 40 mg daily, Celexa Review of Systems: Respiratory: He has chronic tobacco use and dyspnea GI: No nausea or vomiting . No history of peptic ulcer disease. No recent GI bleed. : No hematuria or dysuria. Nervous System: No stroke or seizure. Physical Examination: 57-year-old male, alert and oriented no apparent distress ,Blood pressure 119/70, Heart rate 67 Head: Normocephalic. Eyes: Sclerae nonicteric. Neck: Good carotid upstroke, no bruit, no jugular venous distention. Lungs: Scattered rhonchi bilaterally Heart: Regular rate and rhythm, S1-S2, no S3, no rub. Systolic ejection murmur. Abdomen: Soft nontender, positive bowel sounds no organomegaly. Extremities: No edema, intact distal pulses. Labs: Hemoglobin 15.3, BUN 17, creatinine 0.72. Potassium 4.4. Troponin less than 0.012. NT proBNP 357. Chest x-ray with no acute infiltrate EKG: Sinus mechanism with evidence of prior inferior wall myocardial infarction with posterior extension Impression: 1. Vague symptoms of not feeling well with fatigue, no clear evidence to suggest acute coronary syndrome or ischemic event 2. History of CAD status post stenting of the left circumflex in 2018 in the setting of myocardial infarction 3. Hyperlipidemia 4. History of chronic tobacco use 5. History of daily alcohol intake Plan: 1. Follow serial enzymes 2. And there is no significant abnormalities proceed with myocardial perfusion imaging 3. Smoking and alcohol cessation 4. Depending on his progress further recommendations will be made 5. Thank you for this consult we will follow with you Past Medical History Past Medical History: Atrial Fibrillation, Coronary Artery Disease (CAD), Chest Pain / Angina, Hyperlipidemia, Hypertension, Myocardial Infarction (PA), Sleep Apnea/CPAP/BIPAP Additional Past Medical History / Comment(s): 2018 Inferior wall myocardial infarction/cardiogenic shock/externally paced and short term intubation/vent, tachycardia with cardiac ablation, central sleep apnea-does not need device, occasional low back pain, L arm injury with surgery/limited ROM L hand Last Myocardial Infarction Date:: 01/17/18 History of Any Multi-Drug Resistant Organisms: None Reported Past Surgical History: Back Surgery, Cardiac Ablation, Heart Catheterization, Heart Catheterization With Stent, Orthopedic Surgery Additional Past Surgical History / Comment(s): PCI with stent 01/2018, low back surgery-has 2 rods/4 screws, colonoscopies, left arm injury with surgery to upper arm and wrist, R shoulder surgery Past Anesthesia/Blood Transfusion Reactions: No Reported Reaction Date of Last Stent Placement:: 01/17/18 Past Psychological History: No Psychological Hx Reported Smoking Status: Current every day smoker - Past Family History Brother(s) Family Medical History: Myocardial Infarction (PA) Additional Family Medical History / Comment(s): in his 40s of throat cancer. Mother Family Medical History: Cancer, Coronary Artery Disease (CAD) Additional Family Medical History / Comment(s): Mother in her 80s of pancreatic cancer. Father Family Medical History: Cancer Additional Family Medical History / Comment(s): Father at age 54 yrs from mesothelioma. Medications and Allergies Home Medications Medication Instructions Recorded Confirmed Type Atorvastatin [Lipitor] 40 mg PO HS #30 tablet 04/19/18 09/09/22 Rx Aspirin EC [Ecotrin Low Dose] 81 mg PO DAILY 01/28/20 09/09/22 History Metoprolol Succinate [Toprol XL] 25 mg PO DAILY 01/28/20 09/09/22 History Citalopram Hydrobromide [CeleXA] 10 mg PO HS 12/23/21 09/09/22 History Nitroglycerin Sl Tabs [Nitrostat] 0.4 mg SL Q5M PRN 12/23/21 09/09/22 History Melatonin 5 mg PO HS 09/09/22 09/09/22 History Allergies Allergy/AdvReac Type Severity Reaction Status Date / Time No Known Allergies Allergy Verified 09/09/22 10:21 Physical Exam Vitals: Vital Signs Temp Pulse Resp BP Pulse Ox 09/09/22 09:49 97.6 F 67 18 119/78 96 09/09/22 07:45 98 F 80 16 156/88 97 Intake and Output 09/08/22 09/09/22 09/09/22 22:59 06:59 14:59 Other: Weight 104.326 kg Results 09/09/22 08:02 09/09/22 08:02 Cardiac Enzymes 09/09/22 09/09/22 Range/Units 08:02 08:02 AST 36 (17-59) U/L Troponin I <0.012 (0.000-0.034) ng/mL Coagulation 09/09/22 Range/Units 08:02 PT 9.6 (9.0-12.0) sec APTT 22.4 (22.0-30.0) sec CBC 09/09/22 Range/Units 08:02 WBC 11.2 H (3.8-10.6) k/uL RBC 4.63 (4.30-5.90) m/uL Hgb 15.3 (13.0-17.5) gm/dL Hct 44.4 (39.0-53.0) % Plt Count 207 (150-450) k/uL Comprehensive Metabolic Panel 09/09/22 Range/Units 08:02 Sodium 139 (137-145) mmol/L Potassium 4.4 (3.5-5.1) mmol/L Chloride 109 H (98-107) mmol/L Carbon Dioxide 24 (22-30) mmol/L BUN 17 (9-20) mg/dL Creatinine 0.72 (0.66-1.25) mg/dL Glucose 114 H (74-99) mg/dL Calcium 9.1 (8.4-10.2) mg/dL AST 36 (17-59) U/L ALT 40 (4-49) U/L Alkaline Phosphatase 72 (38-126) U/L Total Protein 7.1 (6.3-8.2) g/dL Albumin 4.3 (3.5-5.0) g/dL Current Medications Generic Name Dose Route Start Last Admin Trade Name Freq PRN Reason Stop Dose Admin Naloxone HCl 0.2 mg 09/09/22 09:51 Naloxone 0.4 Mg/Ml 1 Ml Vial IV Q2M PRN Opioid Reversal Intake and Output 09/08/22 09/09/22 09/09/22 22:59 06:59 14:59 Other: Weight 104.326 kg Patient Weight 09/10/22 06:59 Weight 104.326 kg 09/09/22 08:02 09/09/22 08:02
[2022-09-09] MEDS: NICOTINE 21MG/24HR PATCH TRANSDERM SCH (16:30)
[2022-09-09] MEDS: HEPARIN SODIUM,PORCINE/PF 5,000 UNIT/0.5 ML SYRINGE SQ SCH ×2 (18:30→23:06)
[2022-09-09] MEDS ORDERED: ATORVASTATIN 40 MG TAB PO SCH (21:00)
[2022-09-09] MEDS ORDERED: MELATONIN 3 MG TABLET PO SCH (23:45)
[2022-09-10] MEDS ORDERED: REGADENOSON 0.4 MG/5 ML SYRINGE IV PRN (06:00)
[2022-09-10 07:52] VITALS: RESP 16
--- NOTE | 2022-09-10 08:06 | P.PN ---
Subjective Progress Note Date: 09/10/22 PROGRESS NOTE The patient is a 57-year-old male with known history of hyperlipidemia, chronic tobacco use and daily alcohol intake underwent stenting of a dominant left circumflex in the setting of an acute myocardial infarction complicated by cardiogenic shock and complete heart block in 2017. He has been followed by Dr. Bryant. He presents today to the emergency room because he did not feel well and his told him that he is feeling tired he denies any significant chest discomfort, dyspnea, dizziness or palpitations. He is not very active physically but has no significant associated symptoms. He denies any PND, orthopnea or peripheral edema. He underwent cardiac catheterization in 2019 and was found to have patent stent to the left circumflex with mild to moderate disease in the LAD. He had an echocardiogram done in December 2021 that showed a normal systolic function with no significant valvular disease. An event monitor performed in December showed no malignant arrhythmia with episodes of atrial tachycardia. In the emergency room his troponin was normal and he had no evidence of acute ST segment changes. September 10: The patient feels better today, he has no chest discomfort, he denies any dizziness, palpitations or syncope. He is in sinus mechanism. He is ambulating without difficulties. Medications: Aspirin, Lipitor 40 mg daily, Toprol-XL 25 mg daily, Celexa PHYSICAL EXAMINATION: Blood pressure 125/80 heart rate 70 LUNGS: Clear to auscultation HEART: Regular rate and rhythm, S1, S2. No S3. systolic ejection murmur ABDOMEN: Soft, nontender, no organomegaly EXTREMETIES: No edema LAB: Troponin less than 0.012 IMPRESSION: 1. , Vague chest discomfort in a patient with known history of CAD, no evidence of acute cord syndrome 2. History of CAD with stenting of the left circumflex in 2018 3. Hyperlipidemia 4. Chronic tobacco and alcohol intake PLAN: 1. Proceed with an MPI today 2. If there is evidence of stress-induced ischemia repeat cardiac catheterization 3. Continue other medications 4. Alcohol and smoking cessation Objective - Vital Signs Vital signs: Vital Signs Temp 97.7 F 09/10/22 07:00 Pulse 72 09/10/22 07:00 Resp 16 09/10/22 07:00 BP 125/82 09/10/22 07:00 Pulse Ox 96 09/10/22 07:05 FiO2 Intake & Output 09/09/22 09/10/22 09/10/22 18:59 06:59 18:59 Weight 104.326 kg Other: # Voids 2 - Labs CBC & Chem 7: 09/09/22 08:02 09/09/22 08:02 Labs: Abnormal Lab Results - Last 24 Hours (Table) 09/09/22 09/09/22 Range/Units 08:02 08:02 WBC 11.2 H (3.8-10.6) k/uL Neutrophils # 8.8 H (1.3-7.7) k/uL Chloride 109 H (98-107) mmol/L Glucose 114 H (74-99) mg/dL
[2022-09-10] MEDS: HEPARIN SODIUM,PORCINE/PF 5,000 UNIT/0.5 ML SYRINGE SQ SCH ×2 (08:10→16:38)
[2022-09-10] MEDS: NICOTINE 21MG/24HR PATCH TRANSDERM SCH (08:10)
[2022-09-10 08:36] LABS: Basophils # (A) 0.06 X 10*3/uL (0.00-0.10); Basophils % (A) 0.6 %; Eosinophils # (A) 0.19 X 10*3/uL (0.04-0.35); Eosinophils % (A) 1.8 %; HCT 43.1 % (39.6-50.0); HGB 14.5 g/dL (13.0-17.0); Immature Grans, Automated 0.3 %; Lymphocytes # (A) 1.74 X 10*3/uL (0.90-5.00); Lymphocytes % (A) 16.1 %; MCH 32.2 pg (27.0-32.0); MCHC 33.6 g/dL (32.0-37.0); MCV 95.6 fL (80.0-97.0); Mean Platelet Volume 10.2 fL (9.5-12.2); Monocytes # (A) 0.72 X 10*3/uL (0.20-1.00); Monocytes % (A) 6.7 %; NRBC Per 100 WBC 0 /100 WBCS (0.0-0.0); Neutrophils # (A) 8.07 X 10*3/uL (1.80-7.70); Neutrophils % (A) 74.5 %; Platelet Count 228 X 10*3/uL (140-440); RBC 4.51 X 10*6/uL (4.40-5.60); RDW 14.1 % (11.5-14.5); WBC 10.81 X 10*3/uL (4.50-10.00)
[2022-09-10 08:45] LABS: African American GFR (CKD) 115.7 (60.0-200.0); Anion Gap 11.4 mmol/L (10.00-18.00); BUN/Creat Ratio 19.75 Ratio (12.00-20.00); Blood Urea Nitrogen 15.8 mg/dL (9.0-27.0); Carbon Dioxide 22.6 mmol/L (20.0-27.5); Non-African American GFR(CKD) 99.9 (60.0-200.0); Potassium 4.2 mmol/L (3.5-5.5)
[2022-09-10] MEDS ORDERED: METOPROLOL SUCCINATE (ER) 25 MG TAB.ER.24H PO SCH (09:00)
[2022-09-10] MEDS ORDERED: ASPIRIN 81 MG PO SCH (09:00)
--- NOTE | 2022-09-10 11:57 | CA ---
Lexiscan Nuclear Stress Test Report Name: Vaughn Hernandez Exam Date: 09/10/2022 08:51 Exam Location: [facility] Ht (in): 70 Wt (lb): 230 BSA: 2.22 Ordering Phys: Master Quintanilla MD Referring Phys: LINDA, Technologist: González Dominguez Age: 57 Gender: M : 1965 Procedure CPT: Indications: Reflex order-Stress test ICD-10 Codes: Patient History: History of CT Medications: Meds past 24 hrs: Pretest Chest Pain: STRESS TEST Lexiscan Protocol Exercise Duration (min:sec): 02:[address] Depressions (mm): Angina Score: Mendoza Score: Resting HR (bpm): 74 Peak HR (bpm): 104 Resting BP (mmHg): 127 / 86 Peak BP (mmHg): 133 / 94 MPHR: 164 Target HR: 139 % MPHR: 63 METS: 1.0 Total Dose: Peak Dose: Atropine: Double Product: 54176 BP Response: Stress Termination: Infusion complete Stress Symptoms: Dyspnea Stress Summary: ECG ANALYSIS Resting ECG: Sinus rhythm. Normal conduction. No arrhythmias. Nonspecific ST-T abnormality. Stress ECG: No ECG changes from baseline with Lexiscan infusion. CONCLUSIONS No ECG evidence of ischemia with Lexiscan infusion. Nuclear test results to follow. Dr. Master Quintanilla MD (Electronically Signed) Final Date: 10 September 2022 11:56
--- NOTE | 2022-09-10 12:59 | NM ---
EXAMINATION TYPE: NM stress lexiscan cardiolite DATE OF EXAM: 09/10/2022 COMPARISON: NONE HISTORY: History of myocardial infarction TECHNIQUE: After the intravenous administration of 10.1 mCi Tc 99m Sestamibi - Cardiolite resting SP ECT images acquired 60 minutes post injection. At peak stress 25.5 mCi Tc 99m Sestamibi - Stress images obtained 47 minutes post injection The patient was stressed with 0.4mg Lexiscan. FINDINGS: There is a fixed defect along the inferior lateral wall. No stress-induced ischemic changes are evide nt on the SPECT images. Polar maps just some reversibility but is not confirmed on SPECT images. There may be some global hypokinesia. Hypokinesia of the anterior wall may be present There is some v entriculomegaly. Ejection fraction is calculated to be 47 %, which is low. Normal greater than 50%.. IMPRESSION: 1. There appears to be a large fixed defect along the inferior lateral wall. 2. Ventriculomegaly with low ejection fraction of 47%. Global hypokinesia appears to be present.
--- NOTE | 2022-09-10 16:08 | P.DS ---
Providers Date of admission: 09/09/22 09:52 Expected date of discharge: 09/10/22 Attending physician: Marcio Donahue MD Consults: 09/09/22 09:51 Consult Physician Urgent Consulting Provider: [facility] Consult Reason/Comments: acute chest pain, possible acs, hx ascad Do you want consulting provider notified?: Yes Primary care physician: [facility] Course: Discharge Diagnosis: Chest pain, acute coronary event ruled out. Troponins negative 3 at less than 0.012. EKG showing sinus mechanism at 79 bpm with J-point elevation in inferior leads 2, 3, and aVF which is unchanged when compared to previous EKG completed 12/24/21. Chest x-ray reviewed and was negative for acute cardiopulmonary process. Patient underwent Lexiscan stress test which revealed a large fixed defect along the inferior wall, and global hypokinesia with a slightly impaired EF of 47%. Cardiology ruling out acute coronary event and clearing patient from cardiac perspective for outpatient follow-up with cut roll machine operator, Dr. Bryant on 09/15/22. No medication changes made this admission. Patient to continue daily Aspirin, atorvastatin, and metoprolol Nicotine dependence. Highly recommend smoking cessation. Chronic conditions: History of CAD with previous AZ resulting in cardiogenic shock History of third degree heart block Hypertension Hyperlipidemia Hospital Course: Patient is a very pleasant 57-year-old male with a past medical history of CAD with previous AZ resulting in associated cardiogenic shock and third degree heart block in 2018, hypertension, hyperlipidemia, and nicotine dependence. Patient does report a mild alcohol use stating he drinks 1-2 beers nightly but denies excessive alcohol intake. Patient reports he follows outpatient with cut roll machine operator Dr. Bryant. He presented to the emergency department this morning with a chief complaint of chest pain/tightness. Patient reports he has been feeling off and not quite himself over the past couple days and his has been urging him to be evaluated, however this morning around 6 AM while sitting down drinking some coffee he began to experience some chest pains/tightness and just not feel right. Patient reports this pain stayed localized to his left anterior chest and denied any radiation of this pain. Patient reports he took 3 sublingual nitroglycerin tablets which resulted in full resolution of this pain. He denied experiencing any headache, lightheadedness, diaphoresis, dizziness, palpitations, shortness of breath, nausea, or noticing any numbness/tingling/weakness/swelling in his extremities. Patient reports his made him come to the hospital for evaluation, that he is pretty certain that he is just experiencing some anxiety. Patient underwent full evaluation in the emergency department. Labs completed and reviewed. CBC revealed mild leukocytosis with WBC count of 11.2. CMP showing no significant abnormalities. Initial troponin was less than 0.012 with a pro-BMP of 357. EKG showing sinus mechanism at 79 bpm with J-point elevation in inferior leads 2, 3, and aVF which is unchanged when compared to previous EKG completed 12/24/21. Chest x-ray reviewed and was negative for acute cardiopulmonary process. Patient admitted under our services with consultation to cardiology. Troponins trended overnight all negative at less than 0.0123 draws. Patient remained free from any further episodes of chest pain/discomfort. He was evaluated by cardiology and underwent Lexiscan stress test which revealed a large fixed defect along the inferior wall, and global hypokinesia with a slightly impaired EF of 47%. Cardiology ruling out acute coronary event and clearing patient from cardiac perspective for outpatient follow-up with cut roll machine operator, Dr. Bryant on 09/15/22. Medically, patient is stable for discharge at this time. No medication changes made this admission. Patient to continue daily Aspirin, atorvastatin, and metoprolol. Patient was also recommended to stop smoking. Physical exam: Vital signs reviewed and stable. General: Nontoxic, no distress and appears stated age. Derm: Skin warm and dry, normal coloration for ethnicity. Head: Atraumatic, normocephalic and symmetric. Eyes: EOMs intact, no lid lag, and anicteric sclera Mouth: no lip lesions, mucus membranes moist Cardiovascular: regular rate and rhythm with normal S1S2, systolic murmur, positive posterior tibial pulses bilaterally, and cap refill < 2 seconds. Lungs: Respirations even, regular, and unlabored on room air. Lungs CTA bilaterally, no rhonchi, no rales, no wheezing, and no accessory muscle usage. Abdominal: soft, nontender to palpation, no guarding, no appreciable organomegaly Ext: ROM intact. No gross muscle atrophy, no edema, no contractures Neuro: Speech clear, face symmetrical and CN II-XII grossly intact with no noted focal neuro deficits Psych: Alert and oriented to person, place, time, and situation. Appropriate and pleasant affect. A total of 34 minutes of time were spent preparing this complex discharge summary. Pt was discharged on 09/10/22 at 4:06 PM Patient Condition at Discharge: Stable Plan - Discharge Summary Discharge Rx Participant: Yes New Discharge Prescriptions: Continue Atorvastatin [Lipitor] 40 mg PO HS #30 tablet Metoprolol Succinate [Toprol XL] 25 mg PO DAILY Aspirin EC [Ecotrin Low Dose] 81 mg PO DAILY Citalopram Hydrobromide [CeleXA] 10 mg PO HS Melatonin 5 mg PO HS Nitroglycerin Sl Tabs [Nitrostat] 0.4 mg SL Q5M PRN PRN Reason: Chest Pain Discharge Medication List Atorvastatin [Lipitor] 40 mg PO HS #30 tablet 04/19/18 [Rx] Aspirin EC [Ecotrin Low Dose] 81 mg PO DAILY 01/28/20 [History] Metoprolol Succinate [Toprol XL] 25 mg PO DAILY 01/28/20 [History] Citalopram Hydrobromide [CeleXA] 10 mg PO HS 12/23/21 [History] Nitroglycerin Sl Tabs [Nitrostat] 0.4 mg SL Q5M PRN 12/23/21 [History] Melatonin 5 mg PO HS 09/09/22 [History] Follow up Appointment(s)/Referral(s): Devin Bryant MD [STAFF PHYSICIAN] - 09/15/22 8:45 am (Patient has appointment made for 09/15/2022 @ 8:45 am) Darya Salamanca MD [Primary Care Provider] - 1-2 days Patient Instructions/Handouts: Chest Pain (DC), How to Stop Smoking (DC) Activity/Diet/Wound Care/Special Instructions: Activity: As tolerated. Take breaks as needed. Diet: Heart healthy and carb consistent diet. Avoid salts, or foods with hidden salts such as canned or boxed foods and frozen dinners. Extra salt makes your heart work harder and traps the fluid in your body for longer. Special Instructions: Take all of your medications as directed and remember to keep all of your doctor's appointments and follow-up as needed. Wishing you a very happy and healthy new year!!!! Thank you for allowing us to participate in your care, it was truly a pleasure having you for our patient!!! Discharge Disposition: HOME SELF-CARE
[2022-09-10 16:27] VITALS: BP 132/78; PULSE 75; TEMP 98.2
== END 2022-09-10 16:46 | disposition home or self-care (01) ==
LOC: EC 07:38 → 6NMEDSUR 09:52
PROVIDERS: ADMIT Student in an Organized Health Care Education/Training Program; ATTEND Student in an Organized Health Care Education/Training Program
DX: R07.89 Other chest pain (principal); E78.5 Hyperlipidemia, unspecified; I48.91 Unspecified atrial fibrillation; I25.10 Atherosclerotic heart disease of native coronary artery without angina pectoris; I10 Essential (primary) hypertension; G47.31 Primary central sleep apnea; D72.829 Elevated white blood cell count, unspecified; I44.2 Atrioventricular block, complete; I25.2 Old myocardial infarction; F10.20 Alcohol dependence, uncomplicated; F17.200 Nicotine dependence, unspecified, uncomplicated; Z95.5 Presence of coronary angioplasty implant and graft; Z79.82 Long term (current) use of aspirin; Z79.899 Other long term (current) drug therapy; Z82.49 Family history of ischemic heart disease and other diseases of the circulatory system; Z80.8 Family history of malignant neoplasm of other organs or systems; Z80.0 Family history of malignant neoplasm of digestive organs
CPT/HCPCS: 96372 ×2; 99285; 36415; 94760; 93005; 93017; 83880; 80053; 80048; 83735; 84484; 85025 ×2; 85610; 85730; 71046; 78452; G0378 ×2; A9500; S4990 ×2; J2785; J1644 ×2

== ENCOUNTER 2022-12-17 09:15 | Day surgery (SDC) | payer BC ==
[~2022-12-17 09:15] MED LIST: LACTATED RINGERS 1,000 ML IV SCH
[2022-12-17] MEDS ORDERED: LIDOCAINE 1% (10MG/ML) FOR IV START INTRADERMA ONE (09:52)
[2022-12-17 09:59] VITALS: RESP 16; TEMP 97.8
[2022-12-17] MEDS ORDERED: PROPOFOL 10 MG/ML 20 ML VIAL IV ONE (10:20)
--- NOTE | 2022-12-17 10:23 | P.GSHP ---
History of Present Illness H&P Date: 12/17/22 Chief Complaint: History of colon polyps This a 57-year-old male presents today for colonoscopy. Patient has a previous history of colon polyps. 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/externally paced and short term intubation/vent, tachycardia with cardiac ablation, central sleep apnea-does not need device, occasional low back pain, L arm injury with surgery/limited ROM L hand Last Myocardial Infarction Date:: 01/17/18 History of Any Multi-Drug Resistant Organisms: None Reported Past Surgical History: Back Surgery, Cardiac Ablation, Cholecystectomy, Heart Catheterization, Heart Catheterization With Stent, Orthopedic Surgery Additional Past Surgical History / Comment(s): PCI with stent 01/2018, low back surgery-has 2 rods/4 screws, colonoscopies, left arm injury with surgery to upper arm and wrist, R shoulder surgery Past Anesthesia/Blood Transfusion Reactions: No Reported Reaction Date of Last Stent Placement:: 01/17/18 Smoking Status: Current every day smoker - Past Family History Brother(s) Family Medical History: Myocardial Infarction (MT) Additional Family Medical History / Comment(s): in his 40s of throat cancer. Mother Family Medical History: Cancer, Coronary Artery Disease (CAD) Additional Family Medical History / Comment(s): Mother in her 80s of pancreatic cancer. Father Family Medical History: Cancer Additional Family Medical History / Comment(s): Father at age 54 yrs from mesothelioma. Medications and Allergies Home Medications Medication Instructions Recorded Confirmed Type Atorvastatin [Lipitor] 40 mg PO HS #30 tablet 04/19/18 12/17/22 Rx Aspirin EC [Ecotrin Low Dose] 81 mg PO DAILY 01/28/20 12/17/22 History Metoprolol Succinate [Toprol XL] 25 mg PO DAILY 01/28/20 12/17/22 History Citalopram Hydrobromide [CeleXA] 10 mg PO HS 12/23/21 12/17/22 History Nitroglycerin Sl Tabs [Nitrostat] 0.4 mg SL Q5M PRN 12/23/21 12/17/22 History Allergies Allergy/AdvReac Type Severity Reaction Status Date / Time No Known Allergies Allergy Verified 12/17/22 09:47 Surgical - Exam Vital Signs Temp Pulse Resp BP Pulse Ox 97.8 F 84 16 128/79 96 12/17/22 09:54 12/17/22 09:54 12/17/22 09:54 12/17/22 09:54 12/17/22 09:54 - General well developed, well nourished, no distress - Eyes PERRL - ENT normal pinna, normal nares - Neck no masses - Respiratory normal expansion - Cardiovascular Rhythm: regular - Abdomen Abdomen: soft, non tender Assessment and Plan Assessment: History of colon polyps. We'll perform colonoscopy.
--- NOTE | 2022-12-17 10:40 | P.OP ---
Date of Procedure: 12/17/22 Preoperative Diagnosis: History of colon Polyps Postoperative Diagnosis: Normal Colonoscopy Procedure(s) Performed: Colonoscopy Anesthesia: MAC Surgeon: Jhonatan Herrera Pathology: none sent Condition: stable Disposition: PACU Description of Procedure: N PROCEDURE: The patient was placed on the endoscopy table in the lateral position. Digital rectal examination was performed which revealed no abnormalities. The prostate was symmetrical without nodules. Flexible colonoscope was then placed in the patient's anus and passed throughout the entire colon. The ileocecal valve was visualized. The cecum, ascending, transverse, descending and sigmoid colon were normal. The rectum was normal as well. There were no masses, polyps or diverticula noted in the entire colon. SUMMARY OF FINDINGS: Normal colonoscopy.
[2022-12-17 11:00] VITALS: BP 113/76; PULSE 90
== END 2022-12-17 11:11 | disposition home or self-care (01) ==
LOC: ORWHC2ENDO 09:15
PROVIDERS: ATTEND Surgery
DX: Z12.11 Encounter for screening for malignant neoplasm of colon (principal); Z86.010 Personal history of colon polyps; I25.10 Atherosclerotic heart disease of native coronary artery without angina pectoris; I25.2 Old myocardial infarction; I48.91 Unspecified atrial fibrillation; I25.119 Atherosclerotic heart disease of native coronary artery with unspecified angina pectoris; I10 Essential (primary) hypertension; E78.5 Hyperlipidemia, unspecified; M19.90 Unspecified osteoarthritis, unspecified site; G47.33 Obstructive sleep apnea (adult) (pediatric); I47.1 Supraventricular tachycardia; Z95.5 Presence of coronary angioplasty implant and graft; Z98.890 Other specified postprocedural states; Z90.49 Acquired absence of other specified parts of digestive tract; F17.200 Nicotine dependence, unspecified, uncomplicated; Z82.49 Family history of ischemic heart disease and other diseases of the circulatory system; Z80.2 Family history of malignant neoplasm of other respiratory and intrathoracic organs; Z79.82 Long term (current) use of aspirin; Z79.899 Other long term (current) drug therapy; Z79.1 Long term (current) use of non-steroidal anti-inflammatories (NSAID)
CPT/HCPCS: 45378; J2704

== ENCOUNTER 2023-10-29 06:18 | Emergency (ER) | payer BC ==
--- NOTE | 2023-10-29 06:52 | ED ---
General Adult HPI - General Chief complaint: Neck Pain/Injury Stated complaint: Pain in right side of neck Time Seen by Provider: 10/29/23 06:46 Source: patient, RN notes reviewed Mode of arrival: ambulatory Limitations: no limitations - History of Present Illness Initial comments: This is a 58 year old male who presents to the emergency department for neck pain. States that this began about 2 weeks ago and he thought that he just injured a muscle. However the pain then returned and over the last several days it has been unbearable. He has pain from behind the ear, going down the neck, and into the left shoulder. He is still able to turn his head, however it is very painful. Not taking anything for management of the pain at this time. - Related Data Home Medications Medication Instructions Recorded Confirmed Aspirin EC [Ecotrin Low Dose] 81 mg PO DAILY 01/28/20 12/17/22 Metoprolol Succinate [Toprol XL] 25 mg PO DAILY 01/28/20 12/17/22 Citalopram Hydrobromide [CeleXA] 10 mg PO HS 12/23/21 12/17/22 Nitroglycerin Sl Tabs [Nitrostat] 0.4 mg SL Q5M PRN 12/23/21 12/17/22 Previous Rx's Medication Instructions Recorded Atorvastatin [Lipitor] 40 mg PO HS #30 tablet 04/19/18 Naproxen Sodium 550 mg PO BID PRN #30 tablet 10/29/23 methocarbamoL [Robaxin-750] 1,500 mg PO TID PRN #30 tab 10/29/23 Allergies Allergy/AdvReac Type Severity Reaction Status Date / Time No Known Allergies Allergy Verified 10/29/23 07:35 Review of Systems ROS Statement: Those systems with pertinent positive or pertinent negative responses have been documented in the HPI. ROS Other: All systems not noted in ROS Statement are negative. Past Medical History Past Medical History: Atrial Fibrillation, Coronary Artery Disease (CAD), Chest Pain / Angina, Hyperlipidemia, Hypertension, Myocardial Infarction (ID), Osteoarthritis (OA), Sleep Apnea/CPAP/BIPAP Additional Past Medical History / Comment(s): 2018 Inferior wall myocardial infarction/cardiogenic shock/externally paced and short term intubation/vent, tachycardia with cardiac ablation, central sleep apnea-does not need device, occasional low back pain, L arm injury with surgery/limited ROM L hand Last Myocardial Infarction Date:: 01/17/18 History of Any Multi-Drug Resistant Organisms: None Reported Past Surgical History: Back Surgery, Cardiac Ablation, Cholecystectomy, Heart Catheterization, Heart Catheterization With Stent, Orthopedic Surgery Additional Past Surgical History / Comment(s): PCI with stent 01/2018, low back surgery-has 2 rods/4 screws, colonoscopies, left arm injury with surgery to upper arm and wrist, R shoulder surgery Past Anesthesia/Blood Transfusion Reactions: No Reported Reaction Date of Last Stent Placement:: 01/17/18 Smoking Status: Current every day smoker - Past Family History Brother(s) Family Medical History: Myocardial Infarction (ID) Additional Family Medical History / Comment(s): in his 40s of throat cancer. Mother Family Medical History: Cancer, Coronary Artery Disease (CAD) Additional Family Medical History / Comment(s): Mother in her 80s of pancreatic cancer. Father Family Medical History: Cancer Additional Family Medical History / Comment(s): Father at age 54 yrs from mesothelioma. General Exam - General Exam Comments Initial Comments: Visual Physical Exam Vital signs reviewed General: Well-appearing, nontoxic, no acute distress. Head: Normocephalic, atraumatic Eyes: PERRLA, EOMI ENT: Airway patent Chest: Nonlabored breathing Skin: No visual rash, normal skin tone Neuro: Alert and oriented 3 Musculoskeletal: No gross abnormalities Limitations: no limitations General appearance: alert, in no apparent distress Head exam: Present: atraumatic, normocephalic, normal inspection Neck exam: Present: tenderness (Right lateral neck), other (ROM limited by pain) Respiratory exam: Present: normal lung sounds bilaterally. Absent: respiratory distress, wheezes, rales, rhonchi, stridor Cardiovascular Exam: Present: regular rate, normal rhythm, normal heart sounds. Absent: systolic murmur, diastolic murmur, rubs, gallop, clicks Neurological exam: Present: alert, oriented X3, CN II-XII intact Psychiatric exam: Present: normal affect, normal mood Skin exam: Present: warm, dry, intact, normal color. Absent: rash Course Vital Signs 10/29/23 10/29/23 07:33 09:39 Temperature 98.5 F Pulse Rate 79 78 Respiratory 18 18 Rate Blood Pressure 135/89 128/74 O2 Sat by Pulse 96 97 Oximetry Medical Decision Making - Medical Decision Making This is a 58-year-old male who presents to the emergency department for neck pain. Was pt. sent in by a medical professional or institution? @ -No Did you speak to anyone other than the patient for history? @ -No Did you review nursing and triage notes? @ -Yes, and I agree, it is accurate with regards to the patient's symptoms. Were old charts reviewed? @ -No Differential Diagnosis? @ -Differential Neck Pain: Fracture, dislocation, contusion, strain, DDD, disc herniation, this is not meant to be an all-inclusive list. EKG interpreted by me (3pts min.)? @ -Not obtained X-rays interpreted by me (1pt min.)? @ -X-ray of the cervical spine and right shoulder obtained. My interpretation identifies no acute fractures. CT interpreted by me (1pt min.)? @ -Not obtained U/S interpreted by me (1pt. min.)? @ -Not obtained What testing was considered but not performed? (CT, X-rays, U/S, labs)? Why? @ -None What meds were considered but not given? Why? @ -None Did you discuss the management of the patient with other professionals? @ -No Did you reconcile home meds? @ -No Was smoking cessation discussed for >3mins.? @ -No Was critical care preformed (if so, how long)? @ -No Were there social determinants of health that impacted care today? How? (Homeles sness, low income, unemployed, alcoholism, drug addiction, transportation, low edu. Level, literacy, decrease access to med. care, fci, rehab)? @ -No Was there de-escalation of care discussed even if they declined? (Discuss DNR or withdrawal of care, Hospice)? @ -No What co-morbidities impacted this encounter? (DM, HTN, Smoking, COPD, CAD, Cancer, CVA, Hep., AIDS, mental health diagnosis, sleep apnea, morbid obesity)? @ -None Was patient admitted / discharged? @ -Discharged. X-ray of the cervical spine and right shoulder obtained revealing no acute process. He does have a suspected underlying full thickness right rotator cuff injury. Patient reports several tears requiring surgery a couple of years ago. Symptoms well controlled with Toradol and Norflex. Rx for Naproxen and Robaxin provided with dosing instructions reviewed. Discussed that the pain is likely related to a muscular strain. Also advised warm moist heat and follow-up with his primary care provider. Undiagnosed new problem with uncertain prognosis? @ -None Drug Therapy requiring intensive monitoring for toxicity (Heparin, Nitro, Insulin, Cardizem)? @ -None Were any procedures done? @ -None Diagnosis/symptom? @ -Cervical strain Acute, or Chronic, or Acute on Chronic? @ -Acute Uncomplicated (without systemic symptoms) or Complicated (systemic symptoms)? @ -Uncomplicated Side effects of treatment? @ -None Exacerbation, Progression, or Severe Exacerbation] @ -Not applicable Poses a threat to life or bodily function? @ -No Return precautions reviewed in depth, the patient is instructed to return to the emergency department with any new, worsening, or concerning symptoms. Patient verbalized understanding. This case was discussed in detail with the attending ED physician, Dr. Colón. Presentation, findings, and treatment plan discussed in detail as well. - Radiology Data Radiology results: report reviewed, image reviewed Disposition Clinical Impression: Strain of neck muscle Disposition: HOME SELF-CARE Instructions (If sedation given, give patient instructions): Cervical Strain (ED) Additional Instructions: Return to the emergency department with any new, worsening, or concerning symptoms. Take the Naproxen with Tylenol as needed for pain relief. If you choose to take the Naproxen, do not take any other anti-inflammatories such as ibuprofen, take one or the other. Take the Robaxin as 1-2 tablets up to 3-4 times daily. Be aware that this may make you drowsy. You can also apply warm moist compresses. Follow-up with your orthopedic provider. Follow up with your primary care provider in 1-2 days. Prescriptions: Naproxen Sodium 550 mg PO BID PRN #30 tablet PRN Reason: Pain methocarbamoL [Robaxin-750] 1,500 mg PO TID PRN #30 tab PRN Reason: Pain Is patient prescribed a controlled substance at d/c from ED?: No Referrals: Darya Salamanca MD [Primary Care Provider] - 1-2 days Time of Disposition: 09:08
[2023-10-29 07:39] VITALS: RESP 18; TEMP 98.5
[2023-10-29] MEDS: KETOROLAC 15 MG/ML 1 ML VIAL IM STA (08:12)
[2023-10-29] MEDS: ORPHENADRINE 30 MG/ML 2 ML VIAL IM STA (08:12)
--- NOTE | 2023-10-29 08:25 | XR ---
EXAMINATION TYPE: XR cervical spine 6 views comp, XR shoulder complete 3 views RT DATE OF EXAM: 10/29/2023 COMPARISON: None HISTORY: 58-year-old male right-sided neck and shoulder pain FINDINGS: Cervical spine: No predental space widening or prevertebral soft tissue swelling. Mild to moderate degenerative disc disease and anterior endplate spondylosis C5-C7 levels and mild at C4-C5. Uncovertebral joint arthrop athy mid cervical spine. On the right, changes result in mild bony neuroforaminal narrowing at C3-C4. On the left, changes result in mild bony neuroforaminal narrowing at C5-C6 and C6-C7. Normal odontoid view. Alignment is maintained. Right shoulder: Moderate degenerative changes AC joint with joint space narrowing, marginal spurring, and capsular hy pertrophy. Subacromial space is preserved. On the Grashey view, there seems to be some narrowing of t he subacromial space. Some sclerosis at the greater tuberosity is also noted. No acute fracture, subl uxation, dislocation. IMPRESSION: 1. Cervical spine: Mild to moderate spondylotic change especially C5-C7 levels. Mild bony neural fora zhane narrowing as outlined above. No malalignment. 2. Right shoulder: Apparent narrowing of the subacromial space on the Grashey view. Consider the poss ibility of underlying full thickness rotator cuff tear. Mild to moderate AC joint OA. No acute osseou s abnormality otherwise seen.
[2023-10-29] MEDS: traMADol 50 MG STARTER PACK 3 TAB BTL PO STA (09:36)
[2023-10-29 09:53] VITALS: BP 128/74; PULSE 78
== END 2023-10-29 09:41 | disposition home or self-care (01) ==
LOC: EC 06:18
DX: S16.1XXA Strain of muscle, fascia and tendon at neck level, initial encounter (principal); I10 Essential (primary) hypertension; I25.2 Old myocardial infarction; I25.10 Atherosclerotic heart disease of native coronary artery without angina pectoris; F17.200 Nicotine dependence, unspecified, uncomplicated; Z79.82 Long term (current) use of aspirin; Z79.899 Other long term (current) drug therapy; Z90.49 Acquired absence of other specified parts of digestive tract; X58.XXXA Exposure to other specified factors, initial encounter
CPT/HCPCS: 72050; 73030; 99283; 96372 ×2; J2360; J1885

== ENCOUNTER 2025-03-27 05:43 | Observation (INO) | payer BC ==
[2025-03-27 05:47] VITALS: TEMP 97.9
[2025-03-27 06:17] LABS: Basophils # (A) 0.04 10*3/uL (0.00-0.10); Basophils % (A) 0.4 %; Eosinophils # (A) 0.20 10*3/uL (0.04-0.35); Eosinophils % (A) 1.9 %; HCT 49.1 % (39.6-50.0); HGB 16.1 g/dL (13.0-17.0); Lymphocytes # (A) 1.76 10*3/uL (0.90-5.00); Lymphocytes % (A) 17.1 %; MCH 32.5 pg (27.0-32.0); MCHC 32.8 g/dL (32.0-37.0); MCV 99.0 fL (80.0-97.0); Monocytes # (A) 0.96 10*3/uL (0.20-1.00); Monocytes % (A) 9.3 %; Neutrophils # (A) 7.33 10*3/uL (1.80-7.70); Neutrophils % (A) 71.0 %; Platelet Count 231 10*3/uL (140-440); RBC 4.96 10*6/uL (4.40-5.60); RDW 14.1 % (11.5-14.5); WBC 10.32 10*3/uL (4.50-10.00)
--- NOTE | 2025-03-27 06:22 | ED ---
Chest Pain HPI - General Chief Complaint: Chest Pain Stated Complaint: Chest Tightness Time Seen by Provider: 03/27/25 06:01 Source: patient, RN notes reviewed Mode of arrival: ambulatory Limitations: no limitations - History of Present Illness Initial Comments: 59-year-old male presents emergency department chief complaint of chest tightness. Patient states he has had symptoms last day or so. Patient states that he does have a significant cardiac history including A-fib CAD cardiac stents patient states pain symptoms worse with exertion. Patient denies leg pain leg swelling no shortness of breath currently. Patient has had some lightheadedness. . - Related Data Home Medications Medication Instructions Recorded Confirmed Aspirin EC [Ecotrin Low Dose] 81 mg PO DAILY 01/28/20 12/17/22 Metoprolol Succinate [Toprol XL] 25 mg PO DAILY 01/28/20 12/17/22 Citalopram Hydrobromide [CeleXA] 10 mg PO HS 12/23/21 12/17/22 Nitroglycerin Sl Tabs [Nitrostat] 0.4 mg SL Q5M PRN 12/23/21 12/17/22 Previous Rx's Medication Instructions Recorded Atorvastatin [Lipitor] 40 mg PO HS #30 tablet 04/19/18 Naproxen Sodium 550 mg PO BID PRN #30 tablet 10/29/23 methocarbamoL [Robaxin-750] 1,500 mg PO TID PRN #30 tab 10/29/23 Allergies Allergy/AdvReac Type Severity Reaction Status Date / Time No Known Allergies Allergy Verified 03/27/25 05:47 Review of Systems ROS Statement: Those systems with pertinent positive or pertinent negative responses have been documented in the HPI. ROS Other: All systems not noted in ROS Statement are negative. EKG Findings - EKG Comments: EKG Findings:: EKG performed at 5: 53 sinus rhythm rate of 75 [place] 193 QRS 95 QT/QTc 410/438 - EKG Results: EKG: interpreted by [facility] Past Medical History Past Medical History: Atrial Fibrillation, Coronary Artery Disease (CAD), Chest Pain / Angina, Hyperlipidemia, Hypertension, Myocardial Infarction ([place]), Osteoarthritis (OA), Sleep Apnea/CPAP/BIPAP Additional Past Medical History / Comment(s): 2018 Inferior wall myocardial infarction/cardiogenic shock/externally paced and short term intubation/vent, tachycardia with cardiac ablation, central sleep apnea-does not need device, occasional low back pain, L arm injury with surgery/limited ROM L hand Last Myocardial Infarction Date:: 01/17/18 History of Any Multi-Drug Resistant Organisms: None Reported Past Surgical History: Back Surgery, Cardiac Ablation, Cholecystectomy, Heart Catheterization, Heart Catheterization With Stent, Orthopedic Surgery Additional Past Surgical History / Comment(s): PCI with stent 01/2018, low back surgery-has 2 rods/4 screws, colonoscopies, left arm injury with surgery to upper arm and wrist, R shoulder surgery Past Anesthesia/Blood Transfusion Reactions: No Reported Reaction Date of Last Stent Placement:: 01/17/18 Past Psychological History: No Psychological Hx Reported Smoking Status: Current every day smoker Past Alcohol Use History: Daily Past Drug Use History: None Reported - Past Family History Brother(s) Family Medical History: Myocardial Infarction ([place]) Additional Family Medical History / Comment(s): in his 40s of throat cancer. Mother Family Medical History: Cancer, Coronary Artery Disease (CAD) Additional Family Medical History / Comment(s): Mother in her 80s of pancreatic cancer. Father Family Medical History: Cancer Additional Family Medical History / Comment(s): Father at age 54 yrs from mesothelioma. General Exam Limitations: no limitations General appearance: alert, in no apparent distress Head exam: Present: atraumatic, normocephalic, normal inspection Eye exam: Present: normal appearance, PERRL, EOMI. Absent: scleral icterus, conjunctival injection, periorbital swelling ENT exam: Present: normal exam, normal oropharynx, mucous membranes moist Neck exam: Present: normal inspection, full ROM. Absent: tenderness, meningismus, lymphadenopathy Respiratory exam: Present: normal lung sounds bilaterally. Absent: respiratory distress, wheezes, rales, rhonchi, stridor Cardiovascular Exam: Present: regular rate, normal rhythm, normal heart sounds. Absent: systolic murmur, diastolic murmur, rubs, gallop, clicks GI/Abdominal exam: Present: soft, normal bowel sounds. Absent: distended, tenderness, guarding, rebound, rigid Extremities exam: Absent: pedal edema, calf tenderness Neurological exam: Present: alert, oriented X3 Course Vital Signs 03/27/25 05:45 Temperature 97.9 F Pulse Rate 79 Respiratory 18 Rate Blood Pressure 129/85 O2 Sat by Pulse 98 Oximetry Chest Pain MDM - MDM Was pt. sent in by a medical professional or institution (SHAAN Canela, [employer], urgent care, hospital, or jail...) When possible be specific @ -[No] Did you speak to anyone other than the patient for history (EMS, parent, family, police, friend...)? What history was obtained from this source @ -[No] Did you review nursing and triage notes (agree or disagree)? Why? @ -[I reviewed and agree with nursing and triage notes] Were old charts reviewed (outside hosp., previous admission, EMS record, old EKG, old radiological studies, urgent care reports/EKG's, jail records)? Report findings @ -[No old charts were reviewed] Differential Diagnosis (chest pain, altered mental status, abdominal pain women, abdominal pain men, vaginal bleeding, weakness, fever, dyspnea, syncope, headache, dizziness, GI bleed, back pain, seizure, CVA, palpatations, mental health, musculoskeletal)? @ -Differential Chest Pain: Stable Angina, Unstable Angina, STEMI, NSTEMI Aortic Dissection, Pneumothorax, Musculoskeletal, Esophageal Spasm GERD, Cholecystitis, Pancreatitis, Zoster, this is not meant to be an all-inclusive list. EKG interpreted by me (3pts min.). @ -[As above] X-rays interpreted by me (1pt min.). @ -Chest x-ray shows no acute cardiopulmonary process. CT interpreted by me (1pt min.). @ -[None done] U/S interpreted by me (1pt. min.). @ -[None done] What testing was considered but not performed or refused? (CT, X-rays, U/S, labs)? Why? @ -[None] What meds were considered but not given or refused? Why? @ -[None] Did you discuss the management of the patient with other professionals (professionals i.e. SHAAN Canela, [employer], lab, RT, psych nurse, social work nurse, merchant mariner, teacher, casino surveillance officer, family caseworker)? Give summary @ -Sound physician for admission Was smoking cessation discussed for >3mins.? @ -[No] Was critical care preformed (if so, how long)? @ -[No] Were there social determinants of health that impacted care today? How? (Homelessness, low income, unemployed, alcoholism, drug addiction, transportation, low edu. Level, literacy, decrease access to med. care, mcc, rehab)? @ -[No] Was there de-escalation of care discussed even if they declined (Discuss DNR or withdrawal of care, Hospice)? DNR status @ -[No] What co-morbidities impacted this encounter? (DM, HTN, Smoking, COPD, CAD, Cancer, CVA, ARF, Chemo, Hep., AIDS, mental health diagnosis, sleep apnea, morbid obesity)? @ -CAD Was patient admitted / discharged? Hospital course, mention meds given and route, prescriptions, significant lab abnormalities, going to OR and other pertinent info. @ -Admitted patient presented for chest pain initial troponin, EKG did not reveal any acute changes though patient has significant cardiac history including cardiac stents that stress test was in 2021. Patient will be admitted for cardiac rule out. Undiagnosed new problem with uncertain prognosis? @ -[No] Drug Therapy requiring intensive monitoring for toxicity (Heparin, Nitro, Insulin, Cardizem)? @ -[No] Were any procedures done? @ -[No] Diagnosis/symptom? @ -Chest pain Acute, or Chronic, or Acute on Chronic? @ -Acute Uncomplicated (without systemic symptoms) or Complicated (systemic symptoms)? @ -Complicated Side effects of treatment? @ -[No] Exacerbation, Progression, or Severe Exacerbation? @ -[No] Poses a threat to life or bodily function? How? (Chest pain, [place], [place], pneumonia, PE, COPD, DKA, ARF, appy, cholecystitis, CVA, Diverticulitis, Homicidal, Suicidal, threat to staff... and all critical care pts) @ -Yes risk to cardiac function Disposition Clinical Impression: Chest pain Disposition: ADMITTED IP TO THIS HOSP Condition: Fair Referrals: Darya Salamanca MD [Primary Care Provider] - 1-2 days Time of Disposition: 08:00
[2025-03-27 06:32] LABS: ALT 38 U/L (4-49); AST 42 U/L (17-59); African American GFR (CKD) >90 (>60 ml/min/1.73 sqM); Albumin 4.8 g/dL (3.5-5.0); Alkaline Phosphatase 81 U/L (38-126); Amylase 58 U/L (30-110); Anion Gap 13 mmol/L; Blood Urea Nitrogen 18 mg/dL (9-20); Calcium 9.8 mg/dL (8.4-10.2); Carbon Dioxide 19 mmol/L (22-30); Chloride 108 mmol/L (98-107); Glucose 111 mg/dL (74-99); Lipase 80 U/L (23-300); Magnesium 2.0 mg/dL (1.6-2.3); Non-African American GFR(CKD) >90 (>60 ml/min/1.73 sqM); Potassium 4.7 mmol/L (3.5-5.1); Sodium 140 mmol/L (137-145); Total Protein 7.7 g/dL (6.3-8.2)
[2025-03-27 06:37] LABS: INR 0.9 (<1.2); Partial Thromboplastin Time 22.6 sec (22.0-30.0); Prothrombin Time 10.1 sec (10.0-12.5)
--- NOTE | 2025-03-27 07:15 | XR ---
EXAM: XR Chest, 2 Views CLINICAL HISTORY: ITS.REASON XR Reason: Chest Pain TECHNIQUE: Frontal and lateral views of the chest. COMPARISON: 2021 FINDINGS: Lungs: Unremarkable. No consolidation. Pleural space: Unremarkable. No pneumothorax. Heart: Unremarkable. No cardiomegaly. Mediastinum: Unremarkable. Normal mediastinal contour. Bones/joints: Unremarkable. No acute fracture. IMPRESSION: No acute cardiopulmonary abnormality visualized.
[2025-03-27] MEDS ORDERED: NITROGLYCERIN SL TABS 0.4 MG TAB SUBLINGUAL PRN (08:00)
[2025-03-27] MEDS: ASPIRIN 81 MG PO STA (08:44)
[2025-03-27 08:47] VITALS: BP 128/85; PULSE 73; RESP 16
[2025-03-27] MEDS ORDERED: MELATONIN 5 MG TABLET PO PRN (09:46)
--- NOTE | 2025-03-27 13:57 | P.HPIM ---
History of Present Illness H&P Date: 03/27/25 Patient is a 59-year-old man With a PMH of atrial fibrillation, coronary artery disease, and angina, hyperlipidemia, hypertension, myocardial infarction, osteoarthritis, sleep apnea. Patient presented to the emergency department with complaints of tightness on the right side of his chest that started about 2 days ago. Patient describes the pain as a tight feeling in his chest and stated that it lasted about 30 seconds. Chest pain is not associated with exertion or rest, patient stated that there are no known alleviating or exacerbating factors. Patient rated the pain as a 3/10. There is no history of dyspnea on exertion or at rest. Denies any nausea or vomiting. EKG EKG independently interpreted displaying sinus rhythm, rate 75 BPM, QTc 438 ms, no ST abnormalities Chest x-ray independently interpreted revealed no acute cardiopulmonary process Labs on admission: Troponin = <0.012 x3 WBC = 10.32 Chloride = 108 HCO3 = 19 Glucose = 111 Vitals on admission: [place] 74 bpm BP 128/85 mm Hg SpO2 -99% on room air ED documentation reviewed and case discussed with ED provider. Patient admitted for further workup of atypical chest pain. Review of systems: Pertinent positives and negatives as discussed in HPI, a complete review of systems was performed and all other systems are negative. Physical examination: Vital signs reviewed General: Lying calmly in bed, in no obvious distress, not pale acyanosed, not dehydrated no pedal edema Derm: no unusual rashes/lesions, warm Head: atraumatic, normocephalic, symmetric Eyes: EOMI, anicteric sclera, pupils equal round reactive to light Neck: No cervical lymphadenopathy, trachea midline, supple Mouth: no lip lesion, mucus membranes moist Cardiovascular: S1S2 reg, no murmur, no edema Lungs: CTA bilateral, no rhonchi, no rales, no accessory muscle use Abdominal: soft, nontender to palpation, no guarding Ext: muscle strength 5 out of 5 in all 4 extremities grossly, no gross muscle atrophy Neuro: CN II-XI grossly intact, no gross focal neuro deficits Psych: Alert, oriented to person, place, and time Assessment/Plan: #. Acute atypical chest pain - EKG (reviewed by me) - Chest x-ray reviewed as above - Troponin negative x 3 - Lipid profile, TSH, HbA1c ordered - Nitroglycerin 0.4 mg PRN - Aspirin 81 mg daily - Lipitor 40 mg PO daily - Metoprolol 25 mg daily - Cardiac telemetry - Heart healthy diet today, NPO overnight for possible stress test tomorrow - Cardiology has been consulted, pending recommendation Chronic: #. A-fib, not anticoagulated, s/p ablation, paroxysmal - Metoprolol Succinate 25 mg PO daily - Patient can be considered for anticoagulation due to elevated [id number] score #. Anxiety/depression - Celexa 10 mg PO daily DVT prophylaxis: heparin 5000 units SQ q8hr The patient is admitted with an anticipated less than 2 midnight stay for evaluation of ACS Discussed with: Dr. Carbone Anticipated discharge place: Home Lana Dallas MD PGY-1 FM Dictation was produced using [employer] dictation software. please excuse any grammatical, word or spelling errors. I saw and evaluated the patient during the soliman and critical portions of this encounter, and discussed the case in detail with the resident author of this note, I agree with the Assessment and Plan, and my changes, if any, are highlighted in blue. Past Medical History Past Medical History: Atrial Fibrillation, Coronary Artery Disease (CAD), Chest Pain / Angina, Hyperlipidemia, Hypertension, Myocardial Infarction ([place]), Osteoarthritis (OA), Sleep Apnea/CPAP/BIPAP Additional Past Medical History / Comment(s): 2018 Inferior wall myocardial infarction/cardiogenic shock/externally paced and short term intubation/vent, t achycardia with cardiac ablation, central sleep apnea-does not need device, occasional low back pain, L arm injury with surgery/limited ROM L hand Last Myocardial Infarction Date:: 01/17/18 History of Any Multi-Drug Resistant Organisms: None Reported Past Surgical History: Back Surgery, Cardiac Ablation, Cholecystectomy, Heart Catheterization, Heart Catheterization With Stent, Orthopedic Surgery Additional Past Surgical History / Comment(s): PCI with stent 01/2018, low back surgery-has 2 rods/4 screws, colonoscopies, left arm injury with surgery to upper arm and wrist, R shoulder surgery Past Anesthesia/Blood Transfusion Reactions: No Reported Reaction Date of Last Stent Placement:: 01/17/18 Past Psychological History: No Psychological Hx Reported Additional Psychological History / Comment(s): Pt resides with his spouse. He is independent. He works for [employer]. Smoking Status: Current every day smoker Past Alcohol Use History: Daily Additional Past Alcohol Use History / Comment(s): Pt started smoking in 1988 and quit in January of 2018 for awhile but is back to smoking a ppd. Past Drug Use History: None Reported - Past Family History Brother(s) Family Medical History: Myocardial Infarction ([place]) Additional Family Medical History / Comment(s): in his 40s of throat cancer. Mother Family Medical History: Cancer, Coronary Artery Disease (CAD) Additional Family Medical History / Comment(s): Mother in her 80s of pancreatic cancer. Father Family Medical History: Cancer Additional Family Medical History / Comment(s): Father at age 54 yrs from mesothelioma. Medications and Allergies Home Medications Medication Instructions Recorded Confirmed Type Atorvastatin [Lipitor] 40 mg PO HS #30 tablet 04/19/18 03/27/25 Rx Aspirin EC [Ecotrin Low Dose] 81 mg PO DAILY 01/28/20 03/27/25 History Metoprolol Succinate [Toprol XL] 25 mg PO DAILY 01/28/20 03/27/25 History Citalopram Hydrobromide [CeleXA] 10 mg PO HS 12/23/21 03/27/25 History Nitroglycerin Sl Tabs [Nitrostat] 0.4 mg SL Q5M PRN 12/23/21 03/27/25 History Melatonin 10 mg PO HS PRN 03/27/25 03/27/25 History Allergies Allergy/AdvReac Type Severity Reaction Status Date / Time No Known Allergies Allergy Verified 03/27/25 09:26 Physical Exam Osteopathic Statement: *. No significant issues noted on an osteopathic structural exam other than those noted in the History and Physical/Consult. Vitals: Vital Signs Temp Pulse Resp BP Pulse Ox 03/27/25 08:46 73 16 128/85 97 03/27/25 05:45 97.9 F 79 18 129/85 98 Intake and Output 03/26/25 03/27/25 03/27/25 22:59 06:59 14:59 Other: Weight 104.326 kg 104.326 kg Results CBC & Chem 7: 03/27/25 05:58 03/27/25 05:58 Labs: Abnormal Lab Results - Last 24 Hours (Table) 03/27/25 03/27/25 Range/Units 05:58 05:58 WBC 10.32 H (4.50-10.00) 10*3/uL MCV 99.0 H (80.0-97.0) fL MCH 32.5 H (27.0-32.0) pg Chloride 108 H (98-107) mmol/L Carbon Dioxide 19 L (22-30) mmol/L Glucose 111 H (74-99) mg/dL
[2025-03-27] MEDS ORDERED: HEPARIN SODIUM,PORCINE 5,000 UNIT/ML 1 ML VIAL SQ SCH (16:00)
--- NOTE | 2025-03-27 17:55 | P.DS ---
Providers Date of admission: 03/27/25 08:01 Discharge Diagnosis: Acute atypical chest pain A-fib, not anticoagulated, s/p ablation, paroxysmal Anxiety/depression Hospital Course: Patient is a 59-year-old man With a PMH of atrial fibrillation, coronary artery disease, and angina, hyperlipidemia, hypertension, myocardial infarction, osteoarthritis, sleep apnea. Patient presented to the emergency department with complaints of tightness on the right side of his chest that started about 2 days ago. Patient describes the pain as a tight feeling in his chest and stated that it lasted about 30 seconds. Chest pain is not associated with exertion or rest, patient stated that there are no known alleviating or exacerbating factors. Patient rated the pain as a 3/10. There is no history of dyspnea on exertion or at rest. Denies any nausea or vomiting. EKG EKG independently interpreted displaying sinus rhythm, rate 75 BPM, QTc 438 ms, no ST abnormalities Chest x-ray independently interpreted revealed no acute cardiopulmonary process Labs on admission: Troponin = <0.012 x3, WBC = 10.32, HCO3 = 19, Glucose = 111 Vitals on admission: [place] 74 bpm, BP 128/85 mm Hg, SpO2 -99% on room air ED documentation reviewed and case discussed with ED provider. Patient admitted for further workup of atypical chest pain. Cardiology consulted. Patient ultimately left AMA. Vital signs reviewed and stable. Unable to perform Physical examination due to patient leaving AMA. Vital signs reviewed A total of greater than 30 minutes of time were spent preparing this complex discharge summary. Patient discharged AMA on 03/27/2025. Karyn Staples MD PGY-1 IM Dictation was produced using [employer] dictation software. please excuse any grammatical, word or spelling errors. Expected date of discharge: 03/27/25 Attending physician: Denilson Carbone MD Consults: 03/27/25 08:01 Consult Physician Urgent Consulting Provider: Devin Bryant Consult Reason/Comments: chest pain Do you want consulting provider notified?: Yes Primary care physician: Darya Salamanca Patient Condition at Discharge: Fair Plan - Discharge Summary New Discharge Prescriptions: No Action Atorvastatin [Lipitor] 40 mg PO HS #30 tablet Metoprolol Succinate [Toprol XL] 25 mg PO DAILY Aspirin EC [Ecotrin Low Dose] 81 mg PO DAILY Citalopram Hydrobromide [CeleXA] 10 mg PO HS Nitroglycerin Sl Tabs [Nitrostat] 0.4 mg SL Q5M PRN PRN Reason: Chest Pain Melatonin 10 mg PO HS PRN PRN Reason: Insomnia Discharge Medication List Atorvastatin [Lipitor] 40 mg PO HS #30 tablet 04/19/18 [Rx] Aspirin EC [Ecotrin Low Dose] 81 mg PO DAILY 01/28/20 [History] Metoprolol Succinate [Toprol XL] 25 mg PO DAILY 01/28/20 [History] Citalopram Hydrobromide [CeleXA] 10 mg PO HS 12/23/21 [History] Nitroglycerin Sl Tabs [Nitrostat] 0.4 mg SL Q5M PRN 12/23/21 [History] Melatonin 10 mg PO HS PRN 03/27/25 [History] Follow up Appointment(s)/Referral(s): Darya Salamanca MD [Primary Care Provider] - 1-2 days
[2025-03-27] MEDS ORDERED: ATORVASTATIN 40 MG TAB PO SCH (21:00)
[2025-03-27] MEDS ORDERED: CITALOPRAM HYDROBROMIDE 10 MG TAB PO SCH (21:00)
[2025-03-28] MEDS ORDERED: ASPIRIN 325 MG TAB PO SCH (09:00)
[2025-03-28] MEDS ORDERED: METOPROLOL SUCCINATE (ER) 25 MG TAB.ER.24H PO SCH (09:00)
[2025-03-28] MEDS ORDERED: ASPIRIN 81 MG PO SCH (09:00)
== END 2025-03-27 14:00 | disposition left against medical advice (07) ==
LOC: EC 05:43 → 1SOBS 08:01
PROVIDERS: ADMIT Internal Medicine; ATTEND Internal Medicine
DX: R07.89 Other chest pain (principal); I10 Essential (primary) hypertension; I48.0 Paroxysmal atrial fibrillation; I25.119 Atherosclerotic heart disease of native coronary artery with unspecified angina pectoris; E78.5 Hyperlipidemia, unspecified; M19.90 Unspecified osteoarthritis, unspecified site; G47.31 Primary central sleep apnea; F41.9 Anxiety disorder, unspecified; F32.A Depression, unspecified; F17.200 Nicotine dependence, unspecified, uncomplicated; I25.2 Old myocardial infarction; Z79.82 Long term (current) use of aspirin; Z79.899 Other long term (current) drug therapy; Z95.5 Presence of coronary angioplasty implant and graft; Z53.29 Procedure and treatment not carried out because of patient's decision for other reasons
CPT/HCPCS: 99285; 36415; 93005; 80053; 84443; 82150; 83690; 83735; 84484; 85025; 85610; 85730; 83036; 71046; G0378